=== PATIENT | male | born 1955 | race Caucasian/White ===

== ENCOUNTER → 2018-04-17 11:16 | Outpatient (CLI) | payer OTHER, SELFPAY ==
--- NOTE | 2018-04-17 11:22 | XR_ITS ---
EXAM: XR cervical spine 5V HISTORY: ITS.REASON: RT ARM PAIN ORDERING PHYSICIAN: Pamela Iyer MD PATIENT AGE: 62 years COMPARISON: None FINDINGS: There is slight reversal of the cervical lordosis which may be due to patient positioning or muscle spasm. Small anterior osteophytes are present at C4 C5 C6 and C7 with slight decrease in the disc spaces. The foramina are widely patent. No evidence of cervical rib. Mild facet arthritic changes are present at C4-C5 and C5-C6. IMPRESSION: 1. Mild cervical spondylosis with degenerative disc disease at C5-C7 and mild facet arthritic changes at C4-C5 and C5-C6 2. Reversal of cervical lordosis which could be due to patient positioning or muscle spasm
--- NOTE | 2018-04-17 11:22 | XR_ITS ---
XR chest 2V HISTORY: ITS.REASON: RT ARM PAIN, TOBACOO USE, HTN ORDERING PHYSICIAN: Pamela Iyer MD PATIENT AGE: 62 years COMPARISON: 07/21/2014 FINDINGS: The cardiomediastinal silhouette and pulmonary vascularity are within normal limits. The lungs are clear without infiltrates, suspicious nodules, or pleural effusions. No acute bony abnormalities. There are mild osteoarthritic changes of the right shoulder IMPRESSION: No change with no acute finding Mild osteoarthritis of the right shoulder
== END ==
PROVIDERS: PCP Family Medicine; Visit Provider Family Medicine
DX: M79.601 Pain in right arm (principal); I10 Essential (primary) hypertension; Z72.0 Tobacco use
CPT/HCPCS: 71046; 72050

== ENCOUNTER → 2018-05-03 06:37 | Outpatient (CLI) | payer OTHER, SELFPAY ==
--- NOTE | 2018-05-03 06:48 | XR_ITS ---
EXAM: XR lumbar spine min 4V HISTORY: ITS.REASON: ACUTE MID LOW BACK PAIN W/O SCIATICA ORDERING PHYSICIAN: Pamela Iyer MD PATIENT AGE: 62 years COMPARISON: None FINDINGS: There is multilevel degenerative disc disease in the lower thoracic and upper lumbar spine. There is mild retrolisthesis of L1 on L2 of 4 mm, L2 on L3 of 4 mm, and L3 on L4 of 3 mm. There is mild anterolisthesis of L4 on L5 of 3 mm. Small anterior osteophytes are present in the upper lumbar spine. No fracture or dislocation. No lytic or blastic change. IMPRESSION: Mild lumbar spondylosis as described above
--- NOTE | 2018-05-03 06:48 | NM_ITS ---
CARDIOLITE SPECT MYOCARDIAL PERFUSION LEXISCAN, REST AND STRESS: History: Hypertension, diabetes, hyperlipidemia, tobacco use. Procedure: Patient exercised on Lance protocol 9 minutes and 41 seconds, resting heart rate was 55 bpm resting blood pressure 132/68, with exercise maximum heart rate achieved was 1 56 bpm which is greater than 85% of the maximum predicted heart rate and a blood pressure was 153/75. Test was stopped due to fatigue patient denied any complained of chest pain. Patient has good exercise capacity achieved 10.1mets of workload on treadmill, the blood pressure response to exercise was adequate. Electrocardiogram: Resting electrocardiogram showed sinus bradycardia, with exercise there is less than 1.[address] segment depression noted from the baseline EKG. The EKG portion of the exercise Myoview is negative for ischemia. Cardiac stress and resting SPECT images: Cardiac stress and resting SPECT images were obtained using technetium 99 Myoview 31.0 mCi at stress and 10.2 mCi at rest. Gated SPECT further analysis of segmental wall motion and calculation of the ejection fraction also done. Cardiac stress and resting SPECT images show uniform myocardial activity without segmental perfusion abnormality, computer derived ejection fraction is over 65% with no regional wall motion abnormality, right ventricle is normal size and contractility. Conclusion: 1. The EKG portion of the exercise Myoview is negative for ischemia, patient has good exercise capacity achieved 10.1mets of workload on treadmill, the blood pressure response to exercise was adequate, there was no exercise-induced chest discomfort. 2. No scintigraphic evidence of reversible ischemia seen at this level of exercise, computer derived ejection fraction is over 65% with no regional wall motion abnormality, right ventricle is normal size and contractility. 3. Normal exercise Myoview study.
--- NOTE | 2018-05-03 09:41 | HMH.ITSHM ---
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 []CALCIUM INVOKANA AMLODIPINE BUPROPION METALOZONE LOSARTAN GEMFIBROZIL CARVEDILOL ADVAIR PREDINISOLONE
== END ==
PROVIDERS: PCP Family Medicine; Visit Provider Family Medicine
DX: M79.602 Pain in left arm (principal); M54.5 Low back pain
CPT/HCPCS: 72110; 78452; 93017; A9502

== ENCOUNTER → 2019-10-28 12:39 | Outpatient (CLI) | payer BC, SELFPAY ==
--- NOTE | 2019-10-28 12:42 | CT_ITS ---
PROCEDURE: CT LUNG SCREENING CLINICAL INDICATION: H/O NICOTINE DEPENDENCE current smoker 37.5 pack year smoking history copd, family hx prior chest wo, 01/19/17 COMPARISON: CT [facility] CT CHEST W/O CONTRAST from 01/19/2017 TECHNIQUE: The exam was performed on a GE Light Speed [address] scanner using 2.90 mGy CTDI. A low dose helical CT CHEST was performed on a multi-detector scanner. All CT scans at the facility use one or more dose reduction, viz: automated exposure control, ma/kV adjustment per patient size (including targeted exams where dose is matched to indication, i.e. head), or iterative reconstruction technique. The LDCT was performed in a facility that meets the criteria for the screening program. Data regarding this exam was submitted to ACR which is an approved registry. The order for this exam indicates that it came as a result of a lung cancer screening counseling shard decision-making visit that included all the elements required of such a visit including smoking cessation. The radiologist interpreting this exam meets the CMS criteria for the LDCT lung cancer screening program. The exam is reported using the Lung-RADS classification scale and reported to the ACR registry. NOTE: This study was performed for the specific purposes of lung cancer screening and is not an alternative to diagnostic chest CT. RADIATION DOSE: CTDI vol(CT dose Index-volume) = 2.90mG DLP (Dose Length Product) = 97.68 mGcm FINDINGS: COPD changes with scattered areas of scarring and evidence of old granulomatous disease. There is some thickening of the right minor fissure nonspecific. No change 6 mm noncalcified nodule superior segment right lower lobe. No change 4 mm subpleural nodule right upper lobe laterally. Stable 4 mm nodule left upper lobe posteriorly. Scarring left lower lobe superior segment unchanged. Scarring within the lingula OTHER FINDINGS: Coronary artery calcifications IMPRESSION: Lung-RADS Category 2 Benign Appearance or Behavior Follow-up: Continue annual screening with LDCT in 12 months Dictated by: Nick Montiel MD 11/10/2019 10:22 Nick Montiel MD in [place] 11/10/2019 10:22
--- NOTE | 2019-10-28 12:42 | XR_ITS ---
PROCEDURE: XR SHOULDER LT MIN 2V CLINICAL INDICATION: LT SHOULDER PAIN COMPARISON: No exams were available for comparison FINDINGS: There are osteoarthritic changes of the acromioclavicular joint and glenohumeral joint with severe subacromial stenosis. There are some hypertrophic changes of the humeral head along with some osteosclerosis. Other findings:No fracture or dislocation. IMPRESSION: Moderate osteoarthritic changes with severe subacromial stenosis which may be seen with rotator cuff disease. One would expect tear of the rotator cuff with this degree of subacromial stenosis which may be confirmed with MRI if clinically warranted. Dictated by: Nick Montiel MD 10/28/2019 18:28 Nick Montiel MD in [place] 10/28/2019 18:28
== END ==
PROVIDERS: PCP Family Medicine; Visit Provider Family Medicine
DX: Z87.891 Personal history of nicotine dependence (principal); Z12.2 Encounter for screening for malignant neoplasm of respiratory organs; M25.512 Pain in left shoulder
CPT/HCPCS: 73030

== ENCOUNTER → 2020-10-07 12:32 | Outpatient (CLI) | payer MEDICARE, BC, SELFPAY | PROVIDERS: PCP Family Medicine; Visit Provider Family Medicine | DX: Z20.822 Contact with and (suspected) exposure to COVID-19 (principal) | CPT/HCPCS: U0003 ==

== ENCOUNTER → 2021-02-03 13:08 | Outpatient (CLI) | payer MEDICARE, SELFPAY | PROVIDERS: PCP Family Medicine; Visit Provider Nurse Practitioner | DX: Z20.822 Contact with and (suspected) exposure to COVID-19 (principal) | CPT/HCPCS: C9803; U0003; U0005 ==

== ENCOUNTER → 2021-03-27 11:07 | Outpatient (CLI) | payer MEDICARE, SELFPAY | PROVIDERS: Visit Provider Nurse Practitioner | DX: Z20.822 Contact with and (suspected) exposure to COVID-19 (principal) | CPT/HCPCS: C9803; U0003; U0005 ==

== ENCOUNTER → 2021-03-31 12:51 | Outpatient (CLI) | payer MEDICARE, SELFPAY ==
--- NOTE | 2021-03-31 12:55 | CT_ITS ---
FINAL REPORT CLINICAL HISTORY: H/O NICOTINE DEPENDENCE FINDINGS: Low-Dose Chest CT CTDI vol (mGy): 2.90 DLP (mGy-cm): 99.25 Axial images were obtained from the lung apex to the mid abdomen by computed tomography. Low-dose protocol was utilized. FINDINGS: CHEST: There is no axillary adenopathy. There is no hilar or mediastinal adenopathy. The heart is proper size. There is no pericardial or pleural effusion. Limited images of the upper abdomen demonstrates a diffusely fatty infiltrated liver. Lung window images demonstrate a stable 4 mm nodule in the periphery of the right upper lobe on image 24 series 4. There is a stable 6 mm nodule in the right lower lobe on image 39 of series 4. The previously noted nodule in the left upper lobe is less well seen but appears unchanged on image 33 of series 4.. IMPRESSION: Lung RADS category 2. Recommend 12 month follow-up low-dose chest CT. Reviewed, Interpreted and Dictated by Baltazar Vilchis MD Transcribed by Meryl Singer Authenticated by Baltazar Vilchis MD on 03/31/2021 03:58:48 PM [facility]
== END ==
PROVIDERS: PCP Family Medicine; Visit Provider Family Medicine
DX: Z87.891 Personal history of nicotine dependence (principal); Z12.2 Encounter for screening for malignant neoplasm of respiratory organs
CPT/HCPCS: 71271

== ENCOUNTER → 2021-09-23 12:10 | Outpatient (CLI) | payer MEDICARE, SELFPAY ==
[2021-09-23 18:32] LABS: Basophils # 0.1 K/mm3 (0-0.2); Basophils % 1.3 % (0.1-2.0); Eosinophils # 0.3 K/mm3 (0.0-0.4); Eosinophils % 3.1 % (0.1-12.0); Hematocrit 46.7 % (42.0-52.0); Hemoglobin 15.1 g/dL (14.1-18.0); Lymphocytes # 3.1 K/mm3 (0.7-4.5); Lymphocytes % 34.8 % (10-50); Mean Corpuscular HGB Conc 32.3 g/dL (31.8-35.4); Mean Platelet Volume 10.1 fl (7.4-10.4); Monocytes # 0.6 K/mm3 (0.1-1.0); Monocytes % 6.4 % (1.7-9.3); Neutrophils # 4.8 K/mm3 (1.8-7.8); Neutrophils % 54.4 % (37.0-80.0); Platelet Count 246 K/mm3 (142-424); Red Blood Count 4.86 M/mm3 (4.60-6.20); Red Cell Distribution Width 13.6 % (11.5-17.5); White Blood Count 8.8 K/mm3 (4.8-10.8)
[2021-09-23 19:10] LABS: Anion Gap 14.1 mEq/L (5-15); Blood Urea Nitrogen 16 mg/dl (9-20); Calcium 9.3 mg/dl (8.4-10.2); Carbon Dioxide 20 mmol/L (22.0-30.0); Chloride 103 mmol/L (98-107); Estimated Glomerular Filt Rate 134 ml/min (>60); GFR (African American) 163 ML/MIN (>60); Glucose 117 mg/dl (74-100); Potassium 4.1 mmoL/L (3.5-5.1); Sodium 133 mmol/L (136-145)
[2021-09-23 19:40] LABS: Thyroid Stimulating Hormone 0.93 uIU/mL (0.465-4.68)
== END ==
PROVIDERS: PCP Family Medicine; Visit Provider Family Medicine
DX: E11.9 Type 2 diabetes mellitus without complications (principal); Z79.84 Long term (current) use of oral hypoglycemic drugs; Z79.899 Other long term (current) drug therapy
CPT/HCPCS: 80048; 84443; 85025

== ENCOUNTER → 2021-11-17 12:53 | Outpatient (CLI) | payer MEDICARE, SELFPAY ==
--- NOTE | 2021-11-17 13:01 | XR_ITS ---
FINAL REPORT CLINICAL HISTORY: bunion FINDINGS: 2 views of the right foot were obtained. There is no acute fracture or dislocation. There is hallux valgus deformity. There are mild hypertrophic changes at the 1st MTP and 3rd MTP joints. A moderate plantar spur is present. IMPRESSION: Hallux valgus deformity and hypertrophic change as described. Reviewed, Interpreted and Dictated by Baltazar Vilchis MD Transcribed by Jake Mae Authenticated and [facility]
--- NOTE | 2021-11-17 13:01 | XR_ITS ---
FINAL REPORT CLINICAL HISTORY: bunion FINDINGS: 2 views of the left foot were obtained. There is no acute fracture or dislocation. There is hallux valgus deformity. There are mild hypertrophic changes at the 1st MTP and 3rd MTP joints. A moderate plantar spur is present. IMPRESSION: Hallux valgus deformity with opera trophic changes as described. Reviewed, Interpreted and Dictated by Baltazar Vilchis MD Transcribed by Jake Mae Authenticated and [facility]
== END ==
PROVIDERS: PCP Family Medicine; Visit Provider Family Medicine
DX: M21.611 Bunion of right foot (principal); M21.612 Bunion of left foot
CPT/HCPCS: 73620

== ENCOUNTER → 2021-12-15 12:21 | Outpatient (CLI) | payer MEDICARE, SELFPAY ==
--- NOTE | 2021-12-15 12:43 | XR_ITS ---
FINAL REPORT CLINICAL HISTORY: left foot pain COMPARISON: November 17, 2021 FINDINGS: 3 views of the left foot were obtained. There is no acute fracture or dislocation. There is a moderate elix valgus deformity. There are mild hypertrophic changes at the 1st MTP joint. There is a large plantar spur. IMPRESSION: Large plantar spur. Moderate hallux valgus deformity. Reviewed, Interpreted and Dictated by Baltazar Vilchis MD Transcribed by Jake Mae Authenticated and [facility]
--- NOTE | 2021-12-15 12:45 | XR_ITS ---
FINAL REPORT CLINICAL HISTORY: right foot pain COMPARISON: November 17, 2021 FINDINGS: 3 views of the right foot were obtained. There is no acute fracture or dislocation. There is a [id number] hallux valgus deformity. There is a large plantar spur. The soft tissues are unremarkable. IMPRESSION: Large plantar spur. Hallux valgus deformity. Reviewed, Interpreted and Dictated by Baltazar Vilchis MD Transcribed by Jake Mae Authenticated and [facility]
[2021-12-15 13:57] LABS: 25-OH Vitamin D, Total 66.6 ng/mL (30-100)
[2022-01-08 23:51] LABS: Cotinine 125.9; Nicotine 14.8
== END ==
PROVIDERS: PCP Family Medicine; Visit Provider Podiatrist
DX: E55.9 Vitamin D deficiency, unspecified (principal); M79.672 Pain in left foot; M79.671 Pain in right foot
CPT/HCPCS: 36415; 73630; 80323; 82306

== ENCOUNTER → 2021-12-22 11:26 | Outpatient (CLI) | payer MEDICARE, SELFPAY | PROVIDERS: PCP Family Medicine; Visit Provider Podiatrist | DX: R09.89 Other specified symptoms and signs involving the circulatory and respiratory systems (principal) ==

== ENCOUNTER → 2022-03-29 10:31 | Outpatient (CLI) | payer MEDICARE, SELFPAY ==
--- NOTE | 2022-03-29 10:40 | ECG_ITS ---
APPROVED REPORT Exam: Resting ECG HR:74 bpm ECG Measurements Heart Rate 74 AXES PA 148 P 61 QRSd 106 QRS -23 QT 373 T 55 QTc 401 Conclusion SINUS RHYTHM BORDERLINE LEFT AXIS DEVIATION [QRS AXIS < -20] BORDERLINE ECG UNCONFIRMED REPORT Electronically signed by : Antonio Aguilar MD 03/29/2022 14:11:10
--- NOTE | 2022-03-29 11:02 | XR_ITS ---
FINAL REPORT CLINICAL HISTORY: Foot Pain,,pre-op foot pain FINDINGS: LEFT FOOT A single view of the left foot was obtained. There is hallux valgus deformity. There are mild degenerative changes. The soft tissues are unremarkable. IMPRESSION: Hallux valgus deformity with mild degenerative changes. Reviewed, Interpreted and Dictated by Tray Harley III, MD Transcribed by Meryl Singer Authenticated and . [facility]
--- NOTE | 2022-03-29 11:02 | XR_ITS ---
FINAL REPORT CLINICAL HISTORY: pre-op..foot pain..cough FINDINGS: Two views of the chest were obtained. The heart size and pulmonary vascularity are within normal limits. The mediastinum is normal. There is mild presumed scarring in the left lung base. There is no pneumothorax. The bony thorax is intact. IMPRESSION: No active cardiopulmonary disease. Reviewed, Interpreted and Dictated by Tray Harley III, MD Transcribed by Meryl Singer Authenticated and [facility]
--- NOTE | 2022-03-29 11:02 | XR_ITS ---
FINAL REPORT CLINICAL HISTORY: Foot pain..pre-op surgery on foot FINDINGS: RIGHT FOOT A single view of the right foot was obtained. There is hallux valgus deformity. There are mild degenerative changes. The soft tissues are unremarkable. IMPRESSION: Hallux valgus deformity with mild degenerative changes. Reviewed, Interpreted and Dictated by Tray Harley III, MD Transcribed by Meryl Singer Authenticated and [facility]
[2022-03-29 11:31] LABS: Basophils # 0.1 K/mm3 (0-0.2); Basophils % 1.6 % (0.1-2.0); Eosinophils # 0.4 K/mm3 (0.0-0.4); Eosinophils % 4.7 % (0.1-12.0); Hematocrit 45.6 % (42.0-52.0); Hemoglobin 15.2 g/dL (14.1-18.0); Hemoglobin A1C 7.8 % (4.0-6.0); Lymphocytes # 2.5 K/mm3 (0.7-4.5); Lymphocytes % 32.2 % (10-50); Mean Corpuscular HGB Conc 33.3 g/dL (31.8-35.4); Mean Corpuscular Hemoglobin 30.9 pg (27.0-31.2); Mean Corpuscular Volume 92.8 fl (80-94); Monocytes # 0.4 K/mm3 (0.1-1.0); Monocytes % 5.4 % (1.7-9.3); Neutrophils # 4.3 K/mm3 (1.8-7.8); Neutrophils % 56.1 % (37.0-80.0); Platelet Count 228 K/mm3 (142-424); Red Blood Count 4.92 M/mm3 (4.60-6.20); Red Cell Distribution Width 13.4 % (11.5-17.5); White Blood Count 7.6 K/mm3 (4.8-10.8)
[2022-03-29 11:35] LABS: Alanine Aminotransferase 36 U/L (12-78); Albumin Level 4.5 g/dl (3.5-5.0); Albumin/Globulin Ratio 1.9 (1.1-1.8); Alkaline Phosphatase 57 U/L (38-126); Anion Gap 10.7 mEq/L (5-15); Aspartate Amino Transferase 31 U/L (17-59); Bilirubin,Total 0.6 mg/dl (0.2-1.3); Blood Urea Nitrogen 16 mg/dl (9-20); Calcium 8.9 mg/dl (8.4-10.2); Carbon Dioxide 20 mmol/L (22.0-30.0); Chloride 105 mmol/L (98-107); Estimated Glomerular Filt Rate 112 ml/min (>60); GFR (African American) 136 ML/MIN (>60); Globulin 2.4 g/dL (1.3-3.2); Glucose 272 mg/dl (74-100); Potassium 3.7 mmoL/L (3.5-5.1); Sodium 132 mmol/L (136-145); Total Protein,Serum 6.9 g/dl (6.3-8.2)
[2022-04-08 16:15] LABS: 1,25 Dihydroxy Vitamin D 41 pg/mL (.); 1,25-Dihydroxy, Vitamin D-2 <10 pg/mL (.); 1,25-Dihydroxy, Vitamin D-3 41 pg/mL (.)
[2022-04-08 20:45] LABS: Cotinine 167.7; Nicotine 11.3
== END ==
PROVIDERS: PCP Family Medicine; Visit Provider Podiatrist
DX: E11.9 Type 2 diabetes mellitus without complications (principal); Z01.818 Encounter for other preprocedural examination; E55.9 Vitamin D deficiency, unspecified; M79.672 Pain in left foot; Z79.84 Long term (current) use of oral hypoglycemic drugs; M79.671 Pain in right foot
CPT/HCPCS: 36415; 71046; 73620; 80053; 80323; 82306; 82652; 83036; 85025; 93005

== ENCOUNTER 2022-04-05 07:14 | Day surgery (SDC) | payer MEDICARE, SELFPAY ==
[2022-04-03 12:33] VITALS: BMI 34.9
[2022-04-05] VITALS (12 sets, daily range): BP systolic 123–144; BP diastolic 63–87; PULSE 70–76; RESP 15–19; TEMP 36.3–43; O2SAT 91–99
[2022-04-05 07:41] LABS: POC Glucose,Bedside 162 (70-110)
--- NOTE | 2022-04-05 09:42 | SUR.OPER ---
0925- family updated of patient's current status via [facility] Petty
--- NOTE | 2022-04-05 10:01 | P.PN_ITS ---
[facility] Disclaimer: The information contained in this section may have been updated after the patient was seen, as this information can be updated by other users. Medical History Bilateral bunions History of COPD Hx of sleep apnea Type 2 diabetes mellitus Surgical History H/O arthroscopy of right knee History of bilateral knee replacement Family History Other No significant family history Social History Smoking Status: Current every day smoker tobacco type: cigarettes packs per day: 1 alcohol intake: never substance use type: denies use current occupational status: employed Travel in the last 8 weeks: None [facility] Anesthesia Checklist Patient Identification Patient Identification: Arm Band and Verbal (Name & ) Structural Data Admitted From: Home Planned Operative Procedure/s: Right Hallux Valgus Repair Consent for Planned Operative Procedure(s) Verified: Yes Verified Documents: Surgical Consent NPO Status Verified Time NPO: 00:00 Chart Verification Results Verified: CBC, BMP, ECG and Chest Xray Additional verifications Anesthesia Reactions: No Hx Blood Transfusions: No Blood Transfusion Reaction: No Airway Assessment C-Spine Mobility Assessed: Yes TMJ Mobility Assessed: Yes Dentition: Good Dentition Neurological Assessment Level of Consciousness: Awake, Alert and Appropriate Anesthesia Plan Anesthesia Risk discussed: Yes ASA Class: III Anesthesia Type: General w/block
--- NOTE | 2022-04-05 11:16 | XR_ITS ---
FINAL REPORT CLINICAL HISTORY: BUNIONECTOMY IN OR IMAGES FLUORO TIME: 1.16 FINDINGS: FLUORO TIME PROCEDURE: Fluoroscopy in the operating room. FINDINGS: Fluoroscopy time was provided by the radiology department for the clinical service. 4 spot films were obtained. Fluoroscopy exposure time: 1:16 minutes IMPRESSION: See above Reviewed, Interpreted and Dictated by Kyung Cueva MD Transcribed by Meryl Singer Authenticated and [facility]
--- NOTE | 2022-04-05 11:48 | EXP.OP.NOTE ---
Date of procedure: 04/05/22 Pre-op Diagnosis:: Right hallux valgus Right foot bunion Right intermetatarsal instability Right foot osteoarthritis Post-op Diagnosis:: Same Procedure performed:: Right lapidus bunionectomy (21838) Right intermetatarsal/cuneiform ORIF Right 1st MPJ Capsulotomy Right Javier osteotomy Autograft bone graft () Application of Viaflow (injectable amniotic graft) Application of posterior splint Surgeon:: Carito Santos DPM TECHNICAL TRANSLATOR:: Tadeo Feeariel Anesthesia: GETA and regional (R popliteal nerve block) Estimated blood loss (mL): 30 Clinical Note:: Patient is 66-year-old diabetic male with bilateral bunion pain. 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 Pain is progressively got worse over the last 5 years. The patient has tried modification of shoe gear, taping, strapping, inserts, ice elevation, NSAIDs. After a long discussion with the patient in regards to the conservative versus surgical treatment for the bunion deformity, the patient has elected to proceed with surgery because they have failed conservative treatment and continue to have pain and worsening symptoms affecting daily activities. The patient has been instructed on the planned procedure, all risk versus benefits of the procedure to include bleeding, infection, nerve and blood vessel damage, need for further surgery, delay in healing of soft tissue or bone, failure of bones to heal, non-union, mal-union, prolonged pain and recovery, prolonged swelling, CRPS/RSD, DVT and anesthetic complications. We discussed his increased risk for wound healing and infection due to diabetes and smoking. Currently smokes half pack daily. Smoking cessation discussed. Takes vitamin D supplements daily. No guarantees were given. All questions fully answered. The patient verbalized understanding and agreed to proceed with surgery. Medical clearance granted by Dr Iyer. Operative findings:: Right foot bunion with arthritic changes to the first metatarsal head. Degenerative changes also noted to the first metatarsal phalangeal joint. Hallux interphalangeus noted with distal toe bleeding. Bone was sclerotic consistent with arthritis. No signs of infection noted Operative note:: On this date and time, the patient was deemed an appropriate surgical candidate. With informed consent signed, the patient was taken to the operating theater after anesthesia did a regional nerve block. The patient was positioned supine. General anesthesia was induced. Tourniquet was applied to the thigh. The right lower extremity was prepped and draped in normal sterile fashion. IV Ancef infused. Right calcaneal autograft bone harvest: Attention was directed to the right calcaneus where a an incision was mapped out. Dissection was carried down full-thickness to the level of the bone. Utilizing an autograft bone harvester drill was inserted into the calcaneus and drill. Approximately 5 cc of calcaneus cancellous bone was obtained. Wound was flushed with saline. Nylon used to close the skin. Right Lapidus bunionectomy: Tourniquet was inflated 250 mmHg. Attention directed to the dorsal medial foot where an incision was mapped out over the first metatarsal cuneiform joint. Dissection carried down full-thickness down to the level of the bone with care taken to maintain surgical hemostasis and preserve neurovascular structures. There was arthritic changes noted to the dorsal lateral aspect of the first tarsometatarsal (TMT) joint. First TMT release performed. Attention to is directed to the first interspace where a stab incision was made at the MTP joint just lateral to the EHL tendon. Lateral capsule incised and a complete suspensory ligament release was completed. There was reduction of the hallux valgus deformity noted. Next a pin was inserted dorsal medial parallel to the first TMT joint and the bunion deformity was reduced. Next in standard technique the Lapiplasty 3in1 guide and positioner was inserted into t
--- NOTE | 2022-04-05 11:52 | P.PNANES_ITS ---
[facility] Anesthesia Record Part I Anesthesia Record I Intake, IV Amount: 1,100 Estimated blood loss (mL): 10 Urine output (mL): 0 Blood Products used (#): none Blood Pressure: 144/75 SaO2: 91 Pulse Rate: 76 Respiratory Rate: 16 Temperature: 97.7 F Patient is:: Drowsy and Stable Stable to PACU at:: 11:50
--- NOTE | 2022-04-05 12:00 | XR_ITS ---
FINAL REPORT CLINICAL HISTORY: Post op bunionectomy FINDINGS: AP, oblique and lateral views of the right foot were obtained. There is no prior exam for comparison. A plaster cast obscures detail. There are postoperative changes from 1st tarsometatarsal fusion and osteotomy of the proximal phalanx of the great toe. Hardware appears intact. No immediate complication is identified. There is no acute fracture or dislocation. There is degenerative joint disease. IMPRESSION: 1. Postoperative changes with no immediate complication identified. 2. Degenerative joint disease. Reviewed, Interpreted and Dictated by Kyung Cueva MD Transcribed by Meryl Singer Authenticated and [facility]
--- NOTE | 2022-04-05 12:27 | SUR.OPER ---
1108- Family updated on patient's status via [facility] Et[facility]
--- NOTE | 2022-04-05 12:28 | SUR.PHASEI ---
1220- Patient transported to post-op in stable condition. Left in care of [facility]. FSBS checked with results of 217.
[2022-04-05 12:31] LABS: POC Glucose,Bedside 217 (70-110)
--- NOTE | 2022-04-05 12:31 | SUR.PHASEII ---
Per Billy Sawyer RN no new orders for current blood sugar.
--- NOTE | 2022-04-06 14:45 | P.PNANES_ITS ---
[facility] Anesthesia Record Part II Anesthesia Record Part II Discharge Time: 12:20 Destination: Surgical Day Care (OP Surgery) PACU nurse assessment reviewed?: Yes Patient Condition:: Good Anesthesia Complications:: None Swallowing reflex intact?: Yes Cyanosis?: No Blood Pressure: 137/87 Pulse Rate: 71 Temperature: 97.7 F Mental Status: Alert & Oriented Pain level:: 0 Nausea and/or vomitting:: None Intake, IV Amount: 0
[2022-04-06 14:46] VITALS: BP 137/87; PULSE 71; TEMP 36.5
== END 2022-04-05 13:15 | disposition home or self-care (01) ==
PROVIDERS: PCP Family Medicine; Visit Provider Podiatrist
PROC: (CPT 28297; principal; 2022-04-05 08:30)
DX: M21.611 Bunion of right foot (principal); M20.11 Hallux valgus (acquired), right foot; Z79.4 Long term (current) use of insulin; E11.9 Type 2 diabetes mellitus without complications; M20.41 Other hammer toe(s) (acquired), right foot; M79.671 Pain in right foot; E55.9 Vitamin D deficiency, unspecified; F17.210 Nicotine dependence, cigarettes, uncomplicated
CPT/HCPCS: 28297; 28308; 73620; 73630; 76000; 82962; 96374; C1713; C1762; C1776; J2405

== ENCOUNTER → 2022-04-25 10:17 | Outpatient (CLI) | payer MEDICARE, SELFPAY ==
--- NOTE | 2022-04-25 10:20 | XR_ITS ---
FINAL REPORT CLINICAL HISTORY: post-op COMPARISON: 04/05/2022 FINDINGS: Right foot Three views were obtained. Overlying cast has been removed. Sideplate and screws are seen securing the 1st tarsometatarsal joint. There is a healing osteotomy at the base of the 1st proximal phalanx with a staple. Large plantar spur is identified. IMPRESSION: Postsurgical changes as detailed above. Reviewed, Interpreted and Dictated by Baltazar Vilchis MD Transcribed by Ayla Mosquera Authenticated and [facility][1]
== END ==
PROVIDERS: PCP Family Medicine; Visit Provider Podiatrist
DX: Z98.890 Other specified postprocedural states (principal); M79.671 Pain in right foot
CPT/HCPCS: 73630

== ENCOUNTER → 2022-05-09 10:43 | Outpatient (CLI) | payer MEDICARE, SELFPAY ==
--- NOTE | 2022-05-09 10:48 | XR_ITS ---
FINAL REPORT CLINICAL HISTORY: Post-op sx april 05 COMPARISON: April 25, 2022 FINDINGS: 3 views of the right foot were obtained. There are side plates and screws securing the 1st tarsometatarsal joint. There is a surgical staple securing an osteotomy through the base of the 1st proximal phalanx. There is a large plantar spur. There is no acute osseous abnormality. IMPRESSION: Stable postoperative changes. Reviewed, Interpreted and Dictated by Baltazar Vilchis MD Transcribed by Jake Mae Authenticated and [facility]
== END ==
PROVIDERS: PCP Family Medicine; Visit Provider Podiatrist
DX: Z98.890 Other specified postprocedural states (principal); M79.671 Pain in right foot
CPT/HCPCS: 73630

== ENCOUNTER → 2022-06-06 12:50 | Outpatient (CLI) | payer MEDICARE, SELFPAY ==
--- NOTE | 2022-06-06 12:58 | XR_ITS ---
FINAL REPORT CLINICAL HISTORY: post-op COMPARISON: April 08, 2022 FINDINGS: 3 weight-bearing views of the right foot were obtained. There is a side plate and screws securing the 1st tarsal metatarsal joint. There is an orthopedic staple in the proximal 1st proximal phalanx. There is no acute fracture or dislocation. A large plantar spur is present. The joint spaces are intact. The soft tissues are unremarkable. IMPRESSION: No acute process. Stable postoperative change. Reviewed, Interpreted and Dictated by Baltazar Vilchis MD Transcribed by Jake Mae Authenticated and . [facility]
== END ==
PROVIDERS: PCP Family Medicine; Visit Provider Nurse Practitioner Family
DX: Z98.890 Other specified postprocedural states (principal); M79.671 Pain in right foot
CPT/HCPCS: 73630

== ENCOUNTER → 2022-06-30 23:32 | Outpatient (CLI) | payer MEDICARE, SELFPAY ==
[2022-06-30 18:55] LABS: Alanine Aminotransferase 37 U/L (12-78); Albumin Level 4.3 g/dl (3.5-5.0); Albumin/Globulin Ratio 1.9 (1.1-1.8); Alkaline Phosphatase 54 U/L (38-126); Aspartate Amino Transferase 34 U/L (17-59); Bilirubin,Total 0.4 mg/dl (0.2-1.3); Blood Urea Nitrogen 15 mg/dl (9-20); Calcium 8.9 mg/dl (8.4-10.2); Carbon Dioxide 23 mmol/L (22.0-30.0); Chloride 100 mmol/L (98-107); Chol/HDL Ratio 4.3 (1-3.5); Cholesterol 121 mg/dl (140-200); Estimated Glomerular Filt Rate 134 ml/min (>60); GFR (African American) 163 ML/MIN (>60); Globulin 2.3 g/dL (1.3-3.2); Glucose 180 mg/dl (74-100); HDL Cholesterol 28 mg/dl (40-60); Sodium 136 mmol/L (136-145); Total Protein,Serum 6.6 g/dl (6.3-8.2); Triglycerides 158 mg/dl (30-150); VLDL Cholesterol 32 mg/dL (0-40)
== END ==
PROVIDERS: PCP Family Medicine; Visit Provider Family Medicine
DX: E66.9 Obesity, unspecified (principal); E11.9 Type 2 diabetes mellitus without complications; Z68.34 Body mass index [BMI] 34.0-34.9, adult; Z79.84 Long term (current) use of oral hypoglycemic drugs
CPT/HCPCS: 80053; 80061

== ENCOUNTER → 2022-10-24 11:00 | Outpatient (CLI) | payer MEDICARE, SELFPAY ==
[2022-10-24 19:56] LABS: Anion Gap 18.4 mEq/L (5-15); Blood Urea Nitrogen 17 mg/dl (9-20); Calcium 9.6 mg/dl (8.4-10.2); Carbon Dioxide 23 mmol/L (22.0-30.0); Chloride 100 mmol/L (98-107); Estimated Glomerular Filt Rate 112 ml/min (>60); GFR (African American) 136 ML/MIN (>60); Glucose 142 mg/dl (74-100); Potassium 4.4 mmoL/L (3.5-5.1); Sodium 137 mmol/L (136-145)
[2022-10-24 20:27] LABS: Prostate Specific Ag Screen 1.1 ng/ml (0.0-4.0)
[2022-10-24 23:14] LABS: Hemoglobin A1C 7.3 % (4.0-6.0)
== END ==
PROVIDERS: PCP Family Medicine; Visit Provider Family Medicine
DX: E11.9 Type 2 diabetes mellitus without complications (principal); Z79.84 Long term (current) use of oral hypoglycemic drugs; Z12.5 Encounter for screening for malignant neoplasm of prostate
CPT/HCPCS: 80048; 83036; G0103

== ENCOUNTER → 2022-11-16 12:48 | Outpatient (CLI) | payer MEDICARE, SELFPAY ==
--- NOTE | 2022-11-16 12:48 | CT_ITS ---
FINAL REPORT TECHNIQUE: Axial images were obtained from the lung apex to the mid abdomen by computed tomography. This study was performed with techniques to keep radiation doses as low as reasonably achievable (ALARA). Individualized dose reduction techniques using automated exposure control or adjustment of mA and/or kV according to the patient's size were employed. CLINICAL HISTORY: lung cancer screening 02/06 ppd x 52 yrs, smoker COPD COMPARISON: 03/31/2021 FINDINGS: CHEST CT LOW DOSE CTDI vol (mGy): 2.90 DLP (mGy-cm): 108.38 There is moderate coronary artery calcification. There is no axillary adenopathy. There is no hilar or mediastinal adenopathy. The heart is normal in size. There is no pericardial or pleural effusion. There is a stable 3 mm right upper lobe nodule well seen on image 29. There is a stable 4 mm left upper lobe nodule well seen on image 32. There is a stable 6 mm posterior right lower lobe nodule well seen on image 41. Several other less than 5 mm nodules are also stable. Note is made of mild scarring. Limited images of the upper abdomen are unremarkable. IMPRESSION: Stable nodules as detailed above. Lung RADS category 2. Recommend 12 month follow-up low-dose chest CT. Reviewed, Interpreted and Dictated by Tray Harley III, MD Transcribed by Ayla Mosquera Authenticated and [facility]
== END ==
PROVIDERS: PCP Family Medicine; Visit Provider Family Medicine
DX: Z87.891 Personal history of nicotine dependence (principal)
CPT/HCPCS: 71271

== ENCOUNTER 2023-04-17 08:47 | Outpatient (CLI) | payer MEDICARE, SELFPAY ==
[2023-04-17 08:30] VITALS: BP 135/82; PULSE 56; RESP 17; O2SAT 97
--- NOTE | 2023-04-17 08:47 | CT_ITS ---
APPROVED REPORT [employer]: CLINICAL INDICATION Chest Pain TECHNIQUE Image Acquisition: A 128 slice MDCT scanner ([employer] View) was used for data acquisition. A noncontrast coronary calcium scan was performed. A CT attenuation threshold of 130 Hounsfield units (HU) was used for the detection of calcium in contiguous voxels of 1 sq mm in area to be counted as individual lesions. Bolus tracking in the ascending aorta with a threshold of 180 HU was performed. Immediately afterwards, ECG synchronized cardiac CT was then performed from the cardiac base to apex using retrospective gating with ECG tube current modulation. A total of 85 mL of Isovue 370 mg/mL contrast medium was administered at 5 mL/sec followed by a saline flush using a biphasic injection protocol. A tube voltage of 120 KVp was used. The patient received the following medications prior to the cardiac CT. 0.8 mg of sublingual nitroglycerin The average heart rate at the time of acquisition was 58 bpm and regular. Image Reconstruction Transaxial images were reconstructed at 0.67 mm slide thickness. Data was reviewed interactively on an advanced workstation capable of 2 and 3-dimensional displays in all conventional reconstruction formats, including multiplanar reformations, maximum intensity projections, curved multiplanar reformations, and volume rendered reconstructions. When applicable, selected routine images describing the relevant coronary anatomy and pathology were saved and sent to PACS. Complications None Technical Quality Overall image quality was good. Coronary artery opacification was adequate. Total DLP (Dose-Length Product) is 1516.6 mGy-cm. The reported value represents the total of one or more individual components during the CT acquisition of this date and at this time, and as such, the same value may appear in more than one CT report depending on the interpreting/reporting physicians. COMPARISON None FINDINGS CT Coronary Calcium Scoring LMA (Left Main Artery) = 0 LAD (Left Anterior Descending) = 189 LCX (Left Coronary Circumflex) = 114 RCA (Right Coronary Artery) = 154 Total Calcium Score = 457 using the AJ-130 method. The observed calcium score of 457 is at 75th percentile for subjects of the same age, sex, and race/ethnicity. The interpretation of the calcium heart score is based on the following continuum*: 0 = no calcified plaque detected (risk of coronary artery disease is very low ??? less than 5%) 1-10 = calcium detected in extremely minimal levels (risk of coronary diseases is still low ??? less than 10%) 11-100 = mild levels of plaque detected with certainty (mild or minimal narrowing of heart arteries is likely) 101-400 = definite,at least moderate levels of plaque detected (relatively high risk of a heart attack within 3-5 years) >401-999 = extensive levels of plaque detected (high risk of heart attack, high levels of vascular disease are present, high likelihood of at least one significant coronary narrowing) *The calcium heart score quantifies the burden of coronary calcification/plaque in the coronary arteries. The calcium heart score is not able to evaluate the presence or burden of non-calcified (i.e. soft) plaque. There is also identifiable calcification in the ascending and, transverse, and descending thoracic aorta. Coronary CT Angiography The coronary arterial system is right dominant. Quantitative Stenosis Grading: Left Main (LM): The left main originates normally from the left sinus of Valsalva. The LM bifurcates into the left anterior descending artery and left circumflex artery. The LM is patent with no evidence of atherosclerosis. Left Anterior Descending (LAD) and Diagonal Branches: The LAD gives off 3 diagonal branches. There is mixed calcified/noncalcified plaque noted in the proximal and mid LAD, with presence of up to 50-70% luminal stenosis. There is no evidence of LAD-myocardial bridge. Left Circumflex (LCX) and Obtuse Marginals (OM): The LCX gives off 1 Obtuse Marginal (OM) branch(es). There is mixed calcified/noncalcified plaque noted in the proximal LCx, with up to 50 to 70% moderate luminal stenosis. Right Coronary Artery (RCA): The RCA originates normally from the right sinus of Valsalva. The RCA gives off a posterior descending artery (PDA) and posterolateral (PL) branches. There is mixed calcified/noncalcified plaque in the proximal RCA, with presence of 2 foci of eccentric plaque up to 70-90% luminal stenosis. Non-Coronary Cardiac Findings: Analysis of the left ventricular (LV) structure and function was performed after 3-D reconstruction of the LV from axial images, with user-corrected automatic contouring for assessment of LV volumes and user-defined reconstruction from oblique planes for measurement of 3-D cardiac structure and function. -The left ventricle systolic function is normal. -There is no left atrial appendage filling defect. Two right pulmonary veins and two left pulmonary veins drain normally into the left atrium. -No pericardial thickening or calcification. -Central and branch pulmonary arteries in the [id number] are unremarkable. -Thoracic aorta within the visualized thoracic aortic-branches in the [id number] is unremarkable. Extracardiac Structures No significant extra-cardiac findings. Note, however, that this study is focused on the cardiac findings. IMPRESSION -Presence of coronary calcification with an Agatston score = 457 using the AJ-130 method. -The observed calcium score of 457 is at 75th percentile for subjects of the same age, sex, and race/ethnicity. -Presence of multiplevessel atherosclerotic disease involving the proximal LAD, proximal LCx, and proximal RCA, with possible presence of significant flow-limiting atherosclerosis. -CAD-RADS 4A. Management recommendations per ACC/AHA guidelines*, as clinically appropriate. *Recommendations: CAD RADS 0: Reassurance. Consider non-atherosclerotic causes of chest pain. CAD RADS 1: Consider non-atherosclerotic causes of chest pain. Consider preventive therapy and risk factor modification. CAD RADS 2: Consider non-atherosclerotic causes of chest pain. Consider preventive therapy and risk factor modification, particularly for patients with nonobstructive plaque in multiple segments. CAD RADS 3: Consider further functional testing. Consider symptom-guided anti-ischemic and preventive pharmacotherapy as well as risk factor modification per published guideline statements. CAD RADS 4A: Consider further functional testing or invasive coronary angiography with revascularization per published guideline statements. Consider symptom-guided anti-ischemic and preventive pharmacotherapy as well as risk factor modification per published guideline statements. CAD RADS 4B: Invasive coronary angiography recommended with revascularization per published guideline statements. Consider symptom-guided anti-ischemic and preventive pharmacotherapy as well as risk factor modification per published guideline statements. CAD RADS 5: Consider invasive angiography and/or viability assessment with revascularization per published guideline statements. Consider symptom-guided anti-ischemic and preventive pharmacotherapy as well as risk factor modification per published guideline statements. CRITICAL RESULT None COMMUNICATION Per this written report The coronary and cardiac findings of this CCTA were reviewed, reported, and signed by Mario Winters MD (Information Architect) Conclusion Electronically signed by : Juliet Winters MD 04/23/2023 12:32:56
[2023-04-17 09:06] VITALS: BMI 35.2
[2023-04-17 09:31] LABS: Anion Gap 12.8 mEq/L (5-15); Blood Urea Nitrogen 14 mg/dl (9-20); Calcium 9.3 mg/dl (8.4-10.2); Carbon Dioxide 28 mmol/L (22.0-30.0); Chloride 101 mmol/L (98-107); Creatinine Clearance Estimated 96 mL/min (50-200); Estimated Glomerular Filt Rate 96 ml/min (>60); GFR (African American) 116 ML/MIN (>60); Glucose 158 mg/dl (74-100); Potassium 3.8 mmoL/L (3.5-5.1); Sodium 138 mmol/L (136-145)
[2023-04-17 10:11] VITALS: BP 151/80; PULSE 57; RESP 17; O2SAT 94
[2023-04-17] MEDS: NITROGLYCERIN 0.4MG SL TABLET SL (10:14)
[2023-04-17 10:15] VITALS: BP 130/64; PULSE 60; RESP 17; O2SAT 95
[2023-04-17 10:20] VITALS: BP 108/58; PULSE 61; RESP 17; O2SAT 95
[2023-04-17 10:26] VITALS: BP 129/77; PULSE 65; RESP 16; O2SAT 95
[2023-04-17] MEDS: 0.9 % SODIUM CHLORIDE 50 ML VIAL IV (10:26)
[2023-04-17] MEDS: SODIUM CHLORIDE 0.9% 10ML SYR (RAD ONLY) 10 ML IV (10:26)
[2023-04-17] MEDS: IOPAMIDOL-370 (76%);100ML BOTTLE 85 ML IV (10:27)
--- NOTE | 2023-04-17 10:27 | CA_ITS ---
APPROVED REPORT EXAM: Comprehensive 2D, Doppler, and color-flow Echocardiogram Claim Trainee: Tina Garza CRT Ht: 5 ft 5 in Wt: 214lbs BSA: 2.04 BP: 149/73 mmHg Indications: Chest Pain, COPD, Shortness of Breath, Diabetes, Hyperlipidemia, Hypertension/HDD 2D Dimensions LA Volume 36.90 mL LA Volume Index 17.70 mL/m2 (M/F) 16-34 M-Mode Dimensions RVDd 3.18 cm (0.9-2.6) LA Diam 3.76 cm (1.9-4.0) LVDd 4.43 cm (3.5-5.7) LVDs 3.00 cm (3.5-5.7) IVSd 2.32 cm (0.6-1.1) PWd 0.93 cm (0.6-1.1) EF (Teich) 60.70% FS 32.30% EDV (Teich) 89.10 mL TAPSE 1.98 (<1.7) ESV (Teich) 35.00 mL LV Diastology MED A' 8.90 cm/s LAT A' 12.10 cm/s Aortic Valve AI PHT 633.00 ms AO Peak GR. 5.00 mmHg Pulmonary Valve PV Peak Velocity 159.0 (50-150 cm/s) Tricuspid Valve TR P. Velocity 254.00 cm/s RAP Estimate 10.00 mmHg RVSP 35.90 mmHg Left Ventricle The left ventricle is normal size. The left ventricular systolic function is normal. The left ventricular ejection fraction is within the normal range. There is increased LV wall thickness. There is normal LV segmental wall motion. The left ventricular diastolic function is normal. LVEF is 60%. Right Ventricle The right ventricle is normal size. The right ventricular systolic function is normal. Atria The left atrium size is normal. The right atrium size is normal. Aortic Valve The aortic valve is mildly thickened. There is no aortic valvular stenosis. Mild aortic regurgitation. Mitral Valve The mitral valve leaflets are mildly thickened. No evidence of mitral valve stenosis. Trace mitral regurgitation. Tricuspid Valve The tricuspid valve leaflets are thin and pliable. Trace tricuspid regurgitation. There is insufficient TR jet to estimate RVSP. Pulmonic Valve The pulmonary valve is normal in structure. Trace pulmonic regurgitation. Great Vessels The aortic root is normal in size. The ascending aorta is not well-visualized. IVC is normal in size and collapses >50% with inspiration. Pericardium There is no pericardial effusion. Other Information Study Quality: Fair Conclusion Normal biventricular systolic function. Mild AI. Electronically signed by : Juliet Winters MD 04/18/2023 21:51:10
[2023-04-17 10:36] VITALS: BP 124/69; PULSE 66; RESP 18; O2SAT 96
--- NOTE | 2023-04-17 10:44 | PC.NURSE ---
pt with echo staff at 1040 with 20g iv in rfa.
[2023-04-17 12:08] LABS: POC Glucose,Bedside 156 (70-110)
== END 2023-04-17 23:59 ==
LOC: RAD 08:47
PROVIDERS: PCP Family Medicine; Visit Provider Nurse Practitioner Family
DX: R06.00 Dyspnea, unspecified (principal); E78.5 Hyperlipidemia, unspecified; R94.31 Abnormal electrocardiogram [ECG] [EKG]; I25.10 Atherosclerotic heart disease of native coronary artery without angina pectoris; R07.9 Chest pain, unspecified; E11.9 Type 2 diabetes mellitus without complications; Z79.84 Long term (current) use of oral hypoglycemic drugs
CPT/HCPCS: 75571; 75574; 80048; 82962; 93306; Q9967

== ENCOUNTER 2023-05-03 13:06 | Observation (INO) | payer MEDICARE, SELFPAY ==
[2023-05-03] VITALS (20 sets, daily range): BP systolic 123–170; BP diastolic 60–86; PULSE 57–74; RESP 16–20; TEMP 36.5–36.9; O2SAT 93–98; BMI 35.1; BMI 33.6
--- NOTE | 2023-05-03 07:13 | IR_ITS ---
APPROVED REPORT Patient Location: Outpatient Physician Asst: BETH Kligore RT (R) PROCEDURES Selective coronary angiogram Intravascular lithotripsy to the circumflex artery Drug-eluting stent deployment to the proximal and mid circumflex artery Intravascular lithotripsy to the proximal and mid dominant right coronary Drug-eluting stent deployment to the proximal and mid dominant right coronary INDICATION Angina pectoris, Coronary artery disease, Abnormal CCTA, Extensive calcification of the circumflex artery and LAD Informed consent was obtained prior to the procedure. COMPLICATIONS NONE Estimated Blood Loss: LESS THAN 10 ML TECHNIQUE One percent lidocaine used to anesthetize the right anterior aspect of the wrist. The right radial artery was accessed via the Seldinger technique. A 6 Maltese sheath was placed in the right radial artery. 2.5 mg of Verapamil, 800 mcg of nitroglycerin, 1mg Lidocaine and 5000 U Heparin were given through the arterial sheath. The papa catheter was also used to perform selective coronary angiogram. At the end of the diagnostic procedure therapeutic heparin was administered giving a therapeutic ACT and a guide catheter was placed in the left anterior descending artery followed by an additional wire placed down the circumflex artery. A 4 mm x 12 mm shockwave balloon was deployed at 4 vamsi for a total of 30 pulsations reducing the calcification. Following this 4.5 x 22 mm Alvarez frontier stent was deployed at 20 vamsi reducing the stenosis. A 5 mm x 12 mm noncompliant balloon was then deployed at 22 vamsi and placed in the midportion in order to further reduce the stenosis. Excellent stent apposition and angiographic results were obtained with ANNI-3 flow being present before and after the procedure. Following this the apparatus was removed and the wire was placed on the right coronary followed by the same intravascular lithotripsy balloon advanced and deployed at 8 vamsi for a total of 30 pulsations reducing the calcified stenosis. Following this a 5 mm x 30 mm Alvarez frontier stent was deployed in the mid right coronary artery at 20 vamsi reducing the stenosis. An additional 5 mm x 26 mm Alvarez frontier stent was placed proximal to the for stent yet still overlapping it and deployed at 24 vamsi. Excellent angiograph results were obtained after the procedure with ANNI-3 flow being present before and after the procedure. Following this the apparatus was removed the sheath was removed hemostasis was achieved using TR banding patient was transferred to the postop holding in stable condition ANGIOGRAPHIC RESULTS The left main artery Normal The left anterior descending artery Has proximal 10 to 20% stenoses with a mid vessel 30% stenosis and distal 30% stenoses. The circumflex artery Is nondominant yet still a large vessel and has a proximal calcified concentric 80% stenosis The right coronary artery Is a large dominant vessel and has proximal eccentric 50% with an additional eccentric 70 to 80% calcified stenosis with additional 20% distal stenoses The CHARLES ventriculogram reveals Was not performed The left ventricular end-diastolic pressure Was not measured IMPRESSION Severe calcified two-vessel disease involving the proximal circumflex artery and proximal dominant right coronary as described above Successful intravascular lithotripsy of the circumflex artery severe calcified disease reduced to 0% with 1 large drug-eluting stent Successful intravascular lithotripsy of the proximal to mid dominant right coronary artery severe calcified disease reduced to 0% with 2 contiguous drug-eluting stents PLAN 1. Effient 10 mg daily plus aspirin 81 mg daily 2. LDL less than 55 to achieve that high intensity statin 3. Avoidance of tobacco products 4. Risk factor modification 5. Cardiac rehabilitation 6. Due to the complex nature of the procedure including intravascular lithotripsy I would recommend patient be admitted to the hospital for additional observation and IV fluids overnight. Electronically signed by : Edilson Ogden MD 05/03/2023 12:33:05
[2023-05-03 11:16] LABS: Basophils # 0.1 K/mm3 (0-0.2); Basophils % 1.5 % (0.1-2.0); Eosinophils # 0.4 K/mm3 (0.0-0.4); Eosinophils % 4.5 % (0.1-12.0); Lymphocytes # 2.8 K/mm3 (0.7-4.5); Lymphocytes % 29.6 % (10-50); Mean Corpuscular HGB Conc 32.6 g/dL (31.8-35.4); Mean Platelet Volume 8.8 fl (7.4-10.4); Monocytes # 0.6 K/mm3 (0.1-1.0); Monocytes % 6.1 % (1.7-9.3); Neutrophils # 5.5 K/mm3 (1.8-7.8); Neutrophils % 58.3 % (37.0-80.0); Platelet Count 184 K/mm3 (142-424); Red Cell Distribution Width 13.8 % (11.5-17.5); White Blood Count 9.4 K/mm3 (4.8-10.8)
[2023-05-03] MEDS: HEPARIN 1,000 UNITS/ML 10ML VIAL (CATH LAB) 10000 UNIT IV (11:20)
[2023-05-03] MEDS: HEPARIN 1,000 UNITS/500ML NS (CATH LAB) 3000 UNIT IV (11:20)
[2023-05-03] MEDS: 0.9 % SODIUM CHLORIDE 500 ML 25 ML IV (11:20)
[2023-05-03] MEDS: LIDOCAINE 1% 10ML MDV 20 ML IJ (11:20)
[2023-05-03] MEDS: NITROGLYCERIN 800MCG/8ML SYR (CATH LAB) 800 MCG IA (11:20)
[2023-05-03] MEDS: VERAPAMIL 2.5MG/ML 2ML VIAL 2.5 MG IV (11:20)
[2023-05-03] MEDS: diphenhydrAMINE 50MG/ML VIAL 50 MG IV (11:21)
[2023-05-03 11:51] LABS: Chloride 105 mmol/L (98-107); Sodium 138 mmol/L (136-145)
[2023-05-03 11:52] LABS: Potassium 4.2 mmoL/L (3.5-5.1)
[2023-05-03 11:54] LABS: Blood Urea Nitrogen 14 mg/dl (9-20); Creatinine Clearance Estimated 96 mL/min (50-200); Estimated Glomerular Filt Rate 112 ml/min (>60); GFR (African American) 136 ML/MIN (>60)
[2023-05-03 11:55] LABS: Anion Gap 10.2 mEq/L (5-15); Calcium 9.7 mg/dl (8.4-10.2); Carbon Dioxide 27 mmol/L (22.0-30.0); Glucose 160 mg/dl (74-100)
[2023-05-03] MEDS: LABETALOL 20MG/4ML SYRINGE 20 MG IV (12:19)
[2023-05-03] MEDS: ASPIRIN 325MG TABLET 325 MG PO (12:57)
[2023-05-03] MEDS: PRASUGREL 10MG TAB 60 MG PO (12:57)
[2023-05-03] MEDS: IOPAMIDOL-370 (76%);100ML BOTTLE 150 ML IV (13:13)
[2023-05-03 13:18] LABS: CATHL Activated Clotting Time 289 SEC (74-125)
--- NOTE | 2023-05-03 13:36 | HMH.PHAINT1 ---
Pharmacy Intervention Comments: HOME MEDICATION LIST VERIFIED VIA OUTSIDE PHARMACY AND OFFICE VISIT
[2023-05-03] MEDS: LACTATED RINGERS 1000ML 1,000 ML 50 ML IV (15:07)
--- NOTE | 2023-05-03 16:54 | EXP.HP ---
History of Present Illness *Admission Date: 05/03/23 *Reason for visit:: unstable angina *History of present illness: Mr. Suarez is a pleasant 63-year-old male with history of diabetes, hypertension, hyperlipidemia, CAD. He has been having intermittent chest pain. Was seen in cardiology clinic 2 days ago. Had a CCTA performed showing calcium score 457 with severe multivessel disease. Cardiology brought him in for elective left heart cath. During procedure, found to have significant disease in the right coronary. Lithotripsy performed with placement of 3 stents. Patient tolerated procedure well but needs monitoring overnight. Medicine consulted for admission and further management. On arrival to the floor, patient is hemodynamically stable. No acute distress. On room air. Denies any chest pain at this time. [facility] Disclaimer: The information contained in this section may have been updated after the patient was seen, as this information can be updated by other users. Medical History Hypertension HLD (hyperlipidemia) Abnormal electrocardiogram [ECG] [EKG] Coronary artery calcification seen on CAT scan Fatigue Chest pain Hx of sleep apnea History of COPD Type 2 diabetes mellitus Bilateral bunions Surgical History Status post bunionectomy History of bilateral knee replacement H/O arthroscopy of right knee Family History No significant family history Social History Smoking Status: Current every day smoker tobacco type: cigarettes packs per day: 1 alcohol intake: never substance use type: denies use current occupational status: employed Travel in the last 8 weeks: None Review of Systems Review of Systems Review of systems (narrative): 14 point review of systems performed, pertinent positives and negatives as per HPI Meds Home Medications and Allergies Home Medications Medication Instructions Recorded Confirmed Type dulaglutide 0.75 mg/0.5 mL 0.75 mg SQ WEEKLY Diabetes 09/23/21 05/03/23 History subcutaneous pen injector (Trulicity) fluticasone 250 mcg-salmeterol 50 2 inh inhalation BID COPD 09/23/21 05/03/23 History mcg/dose blistr powdr for inhalation (Advair Diskus) ergocalciferol (vitamin D2) 1,250 50,000 unit PO QWEEK Supplement 04/05/22 05/03/23 History mcg (50,000 unit) capsule bupropion HCl 150 mg 24 hr tablet, 150 mg PO DAILY #90 tabs 02/26/23 05/03/23 Rx extended release gabapentin 300 mg capsule 300 mg PO TID #90 caps 03/16/23 05/03/23 Rx coQ10 (ubiquinol) 100 mg capsule 100 mg PO BID 04/05/23 05/03/23 History (Qunol Serg CoQ10) amlodipine 5 mg tablet 5 mg PO DAILY 05/03/23 05/03/23 History aspirin 81 mg chewable tablet 81 mg PO DAILY 30 days #30 tabs 05/03/23 Rx carvedilol 25 mg tablet 25 mg PO BIDWMEAL 05/03/23 05/03/23 History gemfibrozil 600 mg tablet 600 mg PO BID 05/03/23 05/03/23 History losartan 100 1 tab PO DAILY 05/03/23 05/03/23 History mg-hydrochlorothiazide 25 mg tablet metformin 850 mg tablet 850 mg PO DAILY 05/03/23 05/03/23 History potassium chloride 10 mEq 10 meq PO DAILY 05/03/23 05/03/23 History tablet,extended release prasugrel 10 mg tablet (Effient) 10 mg PO DAILY 30 days #30 tabs 05/03/23 Rx rosuvastatin 5 mg tablet 5 mg PO DAILY 05/03/23 05/03/23 History New Prescriptions to Start Prescriptions: aspirin Edilson Ogden prasugrel [Effient] Edilson Ogden Allergies Allergy/AdvReac Type Severity Reaction Status Date / Time No Known Allergies Allergy Verified 04/30/23 11:22 Exam Data for Last 24 hours Vital signs and Labs for Last 24 Hours: Temp Pulse Resp BP Pulse Ox O2 Del Method 97.7 F 58 L 17 146/82 H 97 Room Air 05/03/23 15:15 05/03/23 15:15 05/03/23 15:15 05/03/23 15:15 05/03/23 15:15 05/03/23 15:37 Laboratory Results - last 24 hr 05/03/23 11:04: WBC 9.4, RBC 5.00, Hgb 16.0, Hct 49.0, MCV 98.0 H, MCH 32.0 H, MCHC 32.6, RDW 13.8, Plt Count 184, MPV 8.8, Neut % (Auto) 58.3, Lymph % (Auto) 29.6, [place] % (Auto) 6.1, Eos % (Auto) 4.5, Baso % (Auto) 1.5, Neut # (Auto) 5.5, Lymph # (Auto) 2.8, [place] # (Auto) 0.6, Eos # (Auto) 0.4, Baso # (Auto) 0.1, Sodium 138, Potassium 4.2, Chloride 105, Carbon Dioxide 27, Anion Gap 10.2, BUN 14, Creatinine 0.70, Estimated Creat Clear 96, Estimated GFR 112, Est GFR ( Amer) 136, Glucose 160 H, Calcium 9.7 05/03/23 12:08: Activated Clotting Time 289 H* I & O for Last 24 hours: Intake & Output 04/30/23 05/01/23 05/02/23 05/03/23 23:59 23:59 23:59 23:59 Output Total 0 / 0 Balance 0 / 0 Weight 94.461 kg Constitutional Constitutional: no acute distress *Routine HEENT Exam Head: Present normocephalic Eye: Present EOMI and PERRL ENT: Present mucous membranes moist *Routine Neck Exam Neck: Present supple; Absent lymphadenopathy *Routine Respiratory Exam Respiratory: Present CTA bilaterally *Routine Cardiovascular Exam Cardiovascular: Present RRR *Routine Abdominal Exam Abdominal: Present soft and normoactive bowel sounds; Absent tenderness *Routine Rectal Exam Rectal:: deferred *Routine Genitalia Exam Genitalia:: deferred *Routine Extremities Exam Extremities: Present edema (trace BLE); Absent cyanosis or clubbing *Routine Skin Exam Skin: Present warm; Absent rash *Routine Neurological Exam Neurological: Present alert, oriented X3 and moving all extremities; Absent altered mental status Assessment and Plan *Assessment and plan (1) Atypical angina: Status: Acute Category: Medical Code(s): I20.89 - Other forms of angina pectoris (2) CAD (coronary artery disease): Status: Acute Category: Medical Code(s): I25.10 - Atherosclerotic heart disease of [place] coronary artery without angina pectoris (3) Hypertension: Status: Acute Qualifiers: Hypertension type: primary hypertension Qualified Code(s): I10 - Essential (primary) hypertension Category: Medical Code(s): I10 - Essential (primary) hypertension (4) Abnormal findings on diagnostic imaging of heart and coronary circulation: Status: Acute Category: Medical Code(s): R93.1 - Abnormal findings on diagnostic imaging of heart and coronary circulation (5) HLD (hyperlipidemia): Status: Acute Qualifiers: Hyperlipidemia type: mixed hyperlipidemia Qualified Code(s): E78.2 - Mixed hyperlipidemia Category: Medical Code(s): E78.5 - Hyperlipidemia, unspecified (6) History of COPD: Status: Acute Category: Medical Code(s): Z87.09 - Personal history of other diseases of the respiratory system (7) Type 2 diabetes mellitus: Status: Acute Qualifiers: Diabetes mellitus intermediate insulin use: without intermediate use Diabetes mellitus complication status: without complication Qualified Code(s): E11.9 - Type 2 diabetes mellitus without complications Category: Medical Code(s): E11.9 - Type 2 diabetes mellitus without complications (8) Tobacco abuse: Status: Chronic Category: Medical Code(s): Z72.0 - Tobacco use (9) Class 1 obesity: Status: Acute Category: Medical Code(s): E66.9 - Obesity, unspecified Plan 67-year-old male status post left heart cath. Necessitating 3 stents. Discussed case with cardiology after procedure, request admission for monitoring of serial kidney function and vitals overnight. If stable in the morning, anticipate discharge. Medicine agreed to admit for further management. Problems addressed as follows: Status post left heart cath -Patient found to have significant coronary artery disease. Status post lithotripsy of RCA with 3 stents. Continue dual antiplatelet therapy with aspirin 81 mg daily and prasugrel 10 mg daily -Cardiology consulted, appreciate their assistance in care. - Creatinine and kidney function normal with BUN 14, creatinine 0.7. Repeat labs in the morning to monitor for stability of kidney function. Hypertension CAD Hyperlipidemia Continue home regimen with amlodipine 5 mg daily, carvedilol 25 mg twice daily, Crestor 5 mg daily, losartan/HCTZ 100/25 mg daily. Continue gemfibrozil 600 mg twice daily Type 2 diabetes: Continue sliding scale insulin with fingersticks ACHS. Holding metformin. Continue Trulicity after discharge. A1c pending, 8.5 six weeks ago Continue home gabapentin 300 mg 3 times a day for neuropathy Continue Wellbutrin 150 mg daily for mood COPD: DuoNebs as needed every 6 hours. Continue Advair inhaler twice daily Obesity complicates all aspects of his care Full code Cardiac diet Heparinized in the Wet [employer] Machine
--- NOTE | 2023-05-03 17:22 | PC.NURSE ---
Pt sitting up in bed eating dinner. Denies any sob or discomfort. VS currently stable. (R) radial cath site with DSG in place. No hematoma noted. Call light within reach.
[2023-05-03 17:29] LABS: POC Glucose,Bedside 220 (70-110)
[2023-05-03] MEDS: CARVEDILOL 25MG TABLET 25 MG PO (17:30)
[2023-05-03] MEDS: FLUTICASONE/SALMETEROL 250/50MCG DISKUS 2 PUFF IH (18:29)
[2023-05-03] MEDS: ATORVASTATIN 10MG TABLET 10 MG PO (20:27)
[2023-05-03] MEDS: GABAPENTIN 300MG CAPSULE 300 MG PO (20:27)
[2023-05-03 20:28] LABS: POC Glucose,Bedside 198 (70-110)
[2023-05-04] VITALS: BP 122/69; PULSE 60; RESP 20; TEMP 37; O2SAT 94
[2023-05-04 02:00] VITALS: PULSE 60
[2023-05-04 04:00] VITALS: BP 147/81; PULSE 57; RESP 20; TEMP 36.7; O2SAT 96; BMI 33.5
--- NOTE | 2023-05-04 05:08 | PC.NURSE ---
pt has been resting in bed with eyes closed using personal c-pap throughout this shift. pt's rt radial cath site has maintained clean,dry,and intact. pt has had no complaints throughout the shift.
[2023-05-04 06:22] LABS: POC Glucose,Bedside 159 (70-110)
[2023-05-04 06:23] LABS: Basophils # 0.1 K/mm3 (0-0.2); Basophils % 1.5 % (0.1-2.0); Eosinophils # 0.4 K/mm3 (0.0-0.4); Eosinophils % 3.9 % (0.1-12.0); Hematocrit 45.3 % (42.0-52.0); Hemoglobin 14.9 g/dL (14.1-18.0); Lymphocytes # 2.4 K/mm3 (0.7-4.5); Lymphocytes % 25.3 % (10-50); Mean Corpuscular HGB Conc 32.8 g/dL (31.8-35.4); Mean Corpuscular Hemoglobin 31.3 pg (27.0-31.2); Mean Corpuscular Volume 95.3 fl (80-94); Mean Platelet Volume 8.9 fl (7.4-10.4); Monocytes # 0.6 K/mm3 (0.1-1.0); Monocytes % 6.7 % (1.7-9.3); Neutrophils # 5.9 K/mm3 (1.8-7.8); Neutrophils % 62.6 % (37.0-80.0); Platelet Count 177 K/mm3 (142-424); Red Blood Count 4.75 M/mm3 (4.60-6.20); Red Cell Distribution Width 13.8 % (11.5-17.5); White Blood Count 9.5 K/mm3 (4.8-10.8)
[2023-05-04] MEDS: humaLOG 100 UNITS/ML 3ML VIAL (SSI) SQ (06:33)
[2023-05-04] MEDS: CARVEDILOL 25MG TABLET 25 MG PO (06:33)
[2023-05-04 06:37] LABS: Anion Gap 9.8 mEq/L (5-15); Blood Urea Nitrogen 12 mg/dl (9-20); Calcium 9.3 mg/dl (8.4-10.2); Carbon Dioxide 26 mmol/L (22.0-30.0); Chloride 105 mmol/L (98-107); Creatinine Clearance Estimated 94 mL/min (50-200); Estimated Glomerular Filt Rate 112 ml/min (>60); GFR (African American) 136 ML/MIN (>60); Glucose 162 mg/dl (74-100); Potassium 3.8 mmoL/L (3.5-5.1); Sodium 137 mmol/L (136-145)
[2023-05-04 06:38] LABS: Magnesium 1.7 mg/dl (1.6-2.3)
[2023-05-04] MEDS: FLUTICASONE/SALMETEROL 250/50MCG DISKUS 2 PUFF IH (06:50)
[2023-05-04 06:52] VITALS: O2SAT 98
--- NOTE | 2023-05-04 07:20 | EXP.DC.SUM ---
General Admission date:: 05/03/23 Discharge date: 05/04/23 HPI HPI HPI: Mr. Suarez is a pleasant 63-year-old male with history of diabetes, hypertension, hyperlipidemia, CAD. He has been having intermittent chest pain. Was seen in cardiology clinic 2 days ago. Had a CCTA performed showing calcium score 457 with severe multivessel disease. Cardiology brought him in for elective left heart cath. During procedure, found to have significant disease in the right coronary. Lithotripsy performed with placement of 3 stents. Patient tolerated procedure well but needs monitoring overnight. Medicine consulted for admission and further management. On arrival to the floor, patient is hemodynamically stable. No acute distress. On room air. Denies any chest pain at this time. Hospital Course Hospital Course Hospital Course: 67-year-old male status post left heart cath. Necessitating 3 stents. Discussed case with cardiology after procedure, request admission for monitoring of serial kidney function and vitals overnight. If stable in the morning, anticipate discharge. Medicine agreed to admit for further management. No overnight. No events on telemetry. Chest pain resolved. Stable for discharge home. Problems addressed as follows: Status post left heart cath Hypertension CAD Hyperlipidemia -Patient found to have significant coronary artery disease. Status post lithotripsy of RCA with 3 stents. Initiated on dual antiplatelet therapy with aspirin 81 mg daily and prasugrel 10 mg daily. Cardiology evaluated patient the morning of discharge. Stable to discharge home. Recommend increasing Crestor to 10 mg daily. Follow-up with cardiology in 1 week. Kidney function monitored, stable creatinine of 0.7 on morning of discharge. Continue dual antiplatelet therapy with aspirin 81 mg daily and prasugrel 10 mg daily Type 2 diabetes: Sliding scale with fingerstick checks during admission. A1c obtained, 8.3. Resume home regimen with Trulicity and metformin. Further adjustments as an outpatient. Continue home gabapentin 300 mg 3 times a day for neuropathy Continue Wellbutrin 150 mg daily for mood COPD: DuoNebs as needed every 6 hours. Continue Advair inhaler twice daily Exam Data for Last 24 hours Vital signs and Labs for Last 24 Hours: Temp Pulse Resp BP Pulse Ox O2 Del Method 98.0 F 57 L 20 147/81 H 98 Room Air 05/04/23 04:00 05/04/23 04:00 05/04/23 04:00 05/04/23 04:00 05/04/23 06:52 05/04/23 06:52 Laboratory Results - last 24 hr 05/03/23 11:04: WBC 9.4, RBC 5.00, Hgb 16.0, Hct 49.0, MCV 98.0 H, MCH 32.0 H, MCHC 32.6, RDW 13.8, Plt Count 184, MPV 8.8, Neut % (Auto) 58.3, Lymph % (Auto) 29.6, [place] % (Auto) 6.1, Eos % (Auto) 4.5, Baso % (Auto) 1.5, Neut # (Auto) 5.5, Lymph # (Auto) 2.8, [place] # (Auto) 0.6, Eos # (Auto) 0.4, Baso # (Auto) 0.1, Sodium 138, Potassium 4.2, Chloride 105, Carbon Dioxide 27, Anion Gap 10.2, BUN 14, Creatinine 0.70, Estimated Creat Clear 96, Estimated GFR 112, Est GFR ( Amer) 136, Glucose 160 H, Calcium 9.7 05/03/23 12:08: Activated Clotting Time 289 H* 05/03/23 17:21: POC Glucose 220 H 05/03/23 20:19: POC Glucose 198 H 05/04/23 05:44: WBC 9.5, RBC 4.75, Hgb 14.9, Hct 45.3, MCV 95.3 H, MCH 31.3 H, MCHC 32.8, RDW 13.8, Plt Count 177, MPV 8.9, Neut % (Auto) 62.6, Lymph % (Auto) 25.3, [place] % (Auto) 6.7, Eos % (Auto) 3.9, Baso % (Auto) 1.5, Neut # (Auto) 5.9, Lymph # (Auto) 2.4, [place] # (Auto) 0.6, Eos # (Auto) 0.4, Baso # (Auto) 0.1, Sodium 137, Potassium 3.8, Chloride 105, Carbon Dioxide 26, Anion Gap 9.8, BUN 12, Creatinine 0.70, Estimated Creat Clear 94, Estimated GFR 112, Est GFR ( Amer) 136, Glucose 162 H, Calcium 9.3, Magnesium 1.7 05/04/23 06:15: POC Glucose 159 H I & O for Last 24 hours: Intake & Output 05/01/23 05/02/23 05/03/23 05/04/23 23:59 23:59 23:59 23:59 Intake Total 600 / 750 150 / 150 Output Total 0 / 0 0 / 0 Balance 600 / 750 150 / 150 Weight 94.461 kg 94.461 kg Constitutional Constitutional: no acute distress *Routine HEENT Exam Head: Present normocephalic Eye: Present EOMI and PERRL ENT: Present mucous membranes moist *Routine Neck Exam Neck: Present supple; Absent lymphadenopathy *Routine Respiratory Exam Respiratory: Present CTA bilaterally *Routine Cardiovascular Exam Cardiovascular: Present RRR *Routine Abdominal Exam Abdominal: Present soft and normoactive bowel sounds; Absent tenderness *Routine Rectal Exam Patient deferred: visual exam *Routine Exam Patient deferred: penile exam *Routine Extremities Exam Extremities: Absent cyanosis, clubbing or edema *Routine Skin Exam Skin: Present warm; Absent rash *Routine Neurological Exam Neurological: Present alert, oriented X3 and moving all extremities; Absent altered mental status Results Data Completed and Pending Labs on day of discharge: Labs from last 24 hours 05/04/23 05/04/23 05/03/23 06:15 05:44 20:19 WBC 9.5 RBC 4.75 Hgb 14.9 Hct 45.3 MCV 95.3 H MCH 31.3 H MCHC 32.8 RDW 13.8 Plt Count 177 MPV 8.9 Neut % (Auto) 62.6 Lymph % (Auto) 25.3 [place] % (Auto) 6.7 Eos % (Auto) 3.9 Baso % (Auto) 1.5 Neut # (Auto) 5.9 Lymph # (Auto) 2.4 [place] # (Auto) 0.6 Eos # (Auto) 0.4 Baso # (Auto) 0.1 Activated Clotting Time Sodium 137 Potassium 3.8 Chloride 105 Carbon Dioxide 26 Anion Gap 9.8 BUN 12 Creatinine 0.70 Estimated Creat Clear 94 Estimated GFR 112 Est GFR ( Amer) 136 Glucose 162 H POC Glucose 159 H 198 H Calcium 9.3 Magnesium 1.7 05/03/23 05/03/23 05/03/23 17:21 12:08 11:04 WBC 9.4 RBC 5.00 Hgb 16.0 Hct 49.0 MCV 98.0 H MCH 32.0 H MCHC 32.6 RDW 13.8 Plt Count 184 MPV 8.8 Neut % (Auto) 58.3 Lymph % (Auto) 29.6 [place] % (Auto) 6.1 Eos % (Auto) 4.5 Baso % (Auto) 1.5 Neut # (Auto) 5.5 Lymph # (Auto) 2.8 [place] # (Auto) 0.6 Eos # (Auto) 0.4 Baso # (Auto) 0.1 Activated Clotting Time 289 H* Sodium 138 Potassium 4.2 Chloride 105 Carbon Dioxide 27 Anion Gap 10.2 BUN 14 Creatinine 0.70 Estimated Creat Clear 96 Estimated GFR 112 Est GFR ( Amer) 136 Glucose 160 H POC Glucose 220 H Calcium 9.7 Magnesium DS: Diagnosis Discharge Diagnosis (1) Atypical angina: Status: Acute Code(s): I20.89 - Other forms of angina pectoris (2) CAD (coronary artery disease): Status: Acute Code(s): I25.10 - Atherosclerotic heart disease of [place] coronary artery without angina pectoris (3) Hypertension: Status: Acute Code(s): I10 - Essential (primary) hypertension Qualifiers: Hypertension type: primary hypertension Qualified Code(s): I10 - Essential (primary) hypertension (4) Abnormal findings on diagnostic imaging of heart and coronary circulation: Status: Acute Code(s): R93.1 - Abnormal findings on diagnostic imaging of heart and coronary circulation (5) HLD (hyperlipidemia): Status: Acute Code(s): E78.5 - Hyperlipidemia, unspecified Qualifiers: Hyperlipidemia type: mixed hyperlipidemia Qualified Code(s): E78.2 - Mixed hyperlipidemia (6) History of COPD: Status: Acute Code(s): Z87.09 - Personal history of other diseases of the respiratory system (7) Type 2 diabetes mellitus: Status: Acute Code(s): E11.9 - Type 2 diabetes mellitus without complications Qualifiers: Diabetes mellitus complication status: without complication Diabetes mellitus terminal system operator insulin use: without terminal system operator use Qualified Code(s): E11.9 - Type 2 diabetes mellitus without complications (8) Tobacco abuse: Status: Chronic Code(s): Z72.0 - Tobacco use (9) Class 1 obesity: Status: Acute Code(s): E66.9 - Obesity, unspecified Meds Home Medications and Allergies Home Medications Medication Instructions Recorded Confirmed Type dulaglutide 0.75 mg/0.5 mL 0.75 mg SQ WEEKLY Diabetes 09/23/21 05/03/23 History subcutaneous pen injector (Trulicity) fluticasone 250 mcg-salmeterol 50 2 inh inhalation BID COPD 09/23/21 05/03/23 History mcg/dose blistr powdr for inhalation (Advair Diskus) ergocalciferol (vitamin D2) 1,250 50,000 unit PO QWEEK Supplement 04/05/22 05/03/23 History mcg (50,000 unit) capsule bupropion HCl 150 mg 24 hr tablet, 150 mg PO DAILY #90 tabs 02/26/23 05/03/23 Rx extended release gabapentin 300 mg capsule 300 mg PO TID #90 caps 03/16/23 05/03/23 Rx coQ10 (ubiquinol) 100 mg capsule 100 mg PO BID 04/05/23 05/03/23 History (Qunol Serg CoQ10) amlodipine 5 mg tablet 5 mg PO DAILY 05/03/23 05/03/23 History aspirin 81 mg chewable tablet 81 mg PO DAILY 30 days #30 tabs 05/03/23 Rx carvedilol 25 mg tablet 25 mg PO BIDWMEAL 05/03/23 05/03/23 History gemfibrozil 600 mg tablet 600 mg PO BID 05/03/23 05/03/23 History losartan 100 1 tab PO DAILY 05/03/23 05/03/23 History mg-hydrochlorothiazide 25 mg tablet metformin 850 mg tablet 850 mg PO DAILY 05/03/23 05/03/23 History potassium chloride 10 mEq 10 meq PO DAILY 05/03/23 05/03/23 History tablet,extended release prasugrel 10 mg tablet (Effient) 10 mg PO DAILY 30 days #30 tabs 05/03/23 Rx rosuvastatin 10 mg tablet 10 mg PO DAILY #30 tabs 05/04/23 Rx New Prescriptions to Start Prescriptions: aspirin Edilson Ogden prasugrel [Effient] dEilson Ogden rosuvastatin Jason Dodd Allergies Allergy/AdvReac Type Severity Reaction Status Date / Time No Known Allergies Allergy Verified 04/30/23 11:22 Discharge Plan Disposition Patient Disposition: Home, Self-Care Condition: Good Follow up Plan Follow up with: Pamela Iyer MD [Primary Care Provider] - 05/08/23 12:30 pm Edilson Ogden MD [Staff Physician] - 05/09/23 2:30 pm Prescriptions/Medication Reconciliation: New aspirin 81 mg Tablet,Chewable 81 mg PO DAILY 30 Days Qty: 30 6RF prasugrel [Effient] 10 mg Tablet 10 mg PO DAILY 30 Days Qty: 30 6RF rosuvastatin 10 mg tablet 10 mg PO DAILY Qty: 30 0RF Continued Trulicity 0.75 mg/0.5 mL pen injector 0.75 mg SQ WEEKLY fluticasone propion-salmeterol [Advair Diskus] 250-50 mcg/dose blister with device 2 inh IH BID coQ10 (ubiquinol) [Qunol Serg CoQ10] 100 mg capsule 100 mg PO BID bupropion HCl 150 mg tablet extended release 24 hr 150 mg PO DAILY Qty: 90 1RF gabapentin 300 mg capsule 300 mg PO TID Qty: 90 3RF carvedilol 25 mg tablet 25 mg PO BIDWMEAL metformin 850 mg tablet 850 mg PO DAILY potassium chloride 10 mEq tablet extended release 10 meq PO DAILY amlodipine 5 mg tablet 5 mg PO DAILY losartan-hydrochlorothiazide 100-25 mg tablet 1 tab PO DAILY gemfibrozil 600 mg tablet 600 mg PO BID ergocalciferol (vitamin D2) 1,250 mcg (50,000 unit) capsule 50,000 unit PO QWEEK Discontinued rosuvastatin 5 mg tablet 5 mg PO DAILY Problem Reconciliation Problems Reviewed?: Yes Patient Discharge Instructions ACTIVITY: Continue current activity DIET: continue same diet Patient Instructions: DI for Cardiac Catheterization, DI for Surgical Site Infection, DI for Moderate Sedation, DI for Post-Surgical Bleeding Providers Primary Care Provider: Pamela Iyer Admit Provider: Jason Dodd Attending Provider: Jason Dodd
[2023-05-04 07:29] LABS: Hemoglobin A1C 8.3 % (4.0-6.0)
[2023-05-04 07:31] VITALS: BP 123/70; PULSE 64; RESP 18; TEMP 36.6; O2SAT 94
--- NOTE | 2023-05-04 08:29 | EXP.CARD.CON ---
History of Present Illness History of Present Illness Consult date: 05/04/23 Requesting physician: Jason Dodd Consult reason: post-op evaluation Chief complaint: Post cath, CKD Additional Medical History:: 1. Coronary calcifications noted on CT of the chest, November 2022 A. CCTA, 04/2023, CAC of 457 with multivessel disease of the proximal LAD, circumflex and RCA. B. LHC, 05/03/2023, 3 GENTRY to circumflex and proximal RCA. LAD has mild disease up to 30%. C. DAPT with aspirin and Effient 2. Tobacco use continued A. Cessation recommend 3. Hyperlipidemia A. LDL 71.7 on 06/30/2022 4. Hypertension A. Echocardiogram 04/2023, normal biventricular systolic function with mild aortic insufficiency. 5. Diabetes mellitus type 2 A. Hemoglobin A1c 8.3 on 05/04/2023 History of present illness: 67-year-old white male admitted post cardiac cath with stenting due to volume of contrast use. Patient denies any symptoms overnight. States he is anxious to go home. Renal functions are normal. Discussed smoking cessation. Patient states he is down to/only smokes 3 to 4 cigarettes/day and is trying to quit. [facility] Disclaimer: The information contained in this section may have been updated after the patient was seen, as this information can be updated by other users. Medical History Hypertension HLD (hyperlipidemia) Abnormal electrocardiogram [ECG] [EKG] Coronary artery calcification seen on CAT scan Fatigue Chest pain Hx of sleep apnea History of COPD Type 2 diabetes mellitus Bilateral bunions Surgical History Status post bunionectomy History of bilateral knee replacement H/O arthroscopy of right knee Family History No significant family history Social History Smoking Status: Current every day smoker tobacco type: cigarettes packs per day: 1 alcohol intake: never substance use type: denies use current occupational status: employed Travel in the last 8 weeks: None Review of Systems Review of Systems Review of systems:: pertinent systems reviewed and negative unless documented below Exam Data for Last 24 hours Vital signs and Labs for Last 24 Hours: Temp Pulse Resp BP Pulse Ox O2 Del Method 97.8 F 64 18 123/70 94 L Room Air 05/04/23 07:31 05/04/23 07:31 05/04/23 07:31 05/04/23 07:31 05/04/23 07:31 05/04/23 07:31 Laboratory Results - last 24 hr 05/03/23 11:04: WBC 9.4, RBC 5.00, Hgb 16.0, Hct 49.0, MCV 98.0 H, MCH 32.0 H, MCHC 32.6, RDW 13.8, Plt Count 184, MPV 8.8, Neut % (Auto) 58.3, Lymph % (Auto) 29.6, [place] % (Auto) 6.1, Eos % (Auto) 4.5, Baso % (Auto) 1.5, Neut # (Auto) 5.5, Lymph # (Auto) 2.8, [place] # (Auto) 0.6, Eos # (Auto) 0.4, Baso # (Auto) 0.1, Sodium 138, Potassium 4.2, Chloride 105, Carbon Dioxide 27, Anion Gap 10.2, BUN 14, Creatinine 0.70, Estimated Creat Clear 96, Estimated GFR 112, Est GFR ( Amer) 136, Glucose 160 H, Calcium 9.7 05/03/23 12:08: Activated Clotting Time 289 H* 05/03/23 17:21: POC Glucose 220 H 05/03/23 20:19: POC Glucose 198 H 05/04/23 05:44: WBC 9.5, RBC 4.75, Hgb 14.9, Hct 45.3, MCV 95.3 H, MCH 31.3 H, MCHC 32.8, RDW 13.8, Plt Count 177, MPV 8.9, Neut % (Auto) 62.6, Lymph % (Auto) 25.3, [place] % (Auto) 6.7, Eos % (Auto) 3.9, Baso % (Auto) 1.5, Neut # (Auto) 5.9, Lymph # (Auto) 2.4, [place] # (Auto) 0.6, Eos # (Auto) 0.4, Baso # (Auto) 0.1, Sodium 137, Potassium 3.8, Chloride 105, Carbon Dioxide 26, Anion Gap 9.8, BUN 12, Creatinine 0.70, Estimated Creat Clear 94, Estimated GFR 112, Est GFR ( Amer) 136, Glucose 162 H, Hemoglobin A1c 8.3 H, Calcium 9.3, Magnesium 1.7 05/04/23 06:15: POC Glucose 159 H I & O for Last 24 hours: Intake & Output 05/01/23 05/02/23 05/03/23 05/04/23 11:59 11:59 11:59 11:59 Intake Total 1170 / 1170 Output Total 0 / 0 Balance 1170 / 1170 Weight 211 lb 208 lb 4.014 oz Constitutional Constitutional: no acute distress *Routine Respiratory Exam Respiratory: Present CTA bilaterally *Routine Cardiovascular Exam Cardiovascular: Present RRR Meds Home Medications and Allergies Home Medications Medication Instructions Recorded Confirmed Type dulaglutide 0.75 mg/0.5 mL 0.75 mg SQ WEEKLY Diabetes 09/23/21 05/03/23 History subcutaneous pen injector (Trulicity) fluticasone 250 mcg-salmeterol 50 2 inh inhalation BID COPD 09/23/21 05/03/23 History mcg/dose blistr powdr for inhalation (Advair Diskus) ergocalciferol (vitamin D2) 1,250 50,000 unit PO QWEEK Supplement 04/05/22 05/03/23 History mcg (50,000 unit) capsule bupropion HCl 150 mg 24 hr tablet, 150 mg PO DAILY #90 tabs 02/26/23 05/03/23 Rx extended release gabapentin 300 mg capsule 300 mg PO TID #90 caps 03/16/23 05/03/23 Rx coQ10 (ubiquinol) 100 mg capsule 100 mg PO BID 04/05/23 05/03/23 History (Qunol Serg CoQ10) amlodipine 5 mg tablet 5 mg PO DAILY 05/03/23 05/03/23 History aspirin 81 mg chewable tablet 81 mg PO DAILY 30 days #30 tabs 05/03/23 Rx carvedilol 25 mg tablet 25 mg PO BIDWMEAL 05/03/23 05/03/23 History gemfibrozil 600 mg tablet 600 mg PO BID 05/03/23 05/03/23 History losartan 100 1 tab PO DAILY 05/03/23 05/03/23 History mg-hydrochlorothiazide 25 mg tablet metformin 850 mg tablet 850 mg PO DAILY 05/03/23 05/03/23 History potassium chloride 10 mEq 10 meq PO DAILY 05/03/23 05/03/23 History tablet,extended release prasugrel 10 mg tablet (Effient) 10 mg PO DAILY 30 days #30 tabs 05/03/23 Rx rosuvastatin 5 mg tablet 5 mg PO DAILY 05/03/23 05/03/23 History New Prescriptions to Start Prescriptions: aspirin Edilson Ogden prasugrel [Effient] Edilson Ogden Allergies Allergy/AdvReac Type Severity Reaction Status Date / Time No Known Allergies Allergy Verified 04/30/23 11:22 Assessment and Plan *Assessment and plan (1) CAD (coronary artery disease): Status: Acute Qualifiers: Coronary Disease-Associated Artery/Lesion type: [place] artery [place] vs. transplanted heart: [place] heart Associated angina: with unstable angina Qualified Code(s): I25.110 - Atherosclerotic heart disease of [place] coronary artery with unstable angina pectoris Category: Medical Code(s): I25.10 - Atherosclerotic heart disease of [place] coronary artery without angina pectoris (2) Hypertension: Status: Acute Qualifiers: Hypertension type: primary hypertension Qualified Code(s): I10 - Essential (primary) hypertension Category: Medical Code(s): I10 - Essential (primary) hypertension (3) HLD (hyperlipidemia): Status: Acute Qualifiers: Hyperlipidemia type: mixed hyperlipidemia Qualified Code(s): E78.2 - Mixed hyperlipidemia Category: Medical Code(s): E78.5 - Hyperlipidemia, unspecified (4) Coronary artery calcification seen on CAT scan: Status: Acute Category: Medical Code(s): I25.10 - Atherosclerotic heart disease of [place] coronary artery without angina pectoris (5) Type 2 diabetes mellitus: Status: Acute Qualifiers: Diabetes mellitus termite treater helper insulin use: without termite treater helper use Diabetes mellitus complication status: without complication Qualified Code(s): E11.9 - Type 2 diabetes mellitus without complications Category: Medical Code(s): E11.9 - Type 2 diabetes mellitus without complications (6) Tobacco abuse: Status: Chronic Category: Medical Code(s): Z72.0 - Tobacco use Plan 1. CAD with coronary stenting x 3 on 05/03/2023. 2. Hypertension, controlled 3. Hyperlipidemia, on statin therapy 4. Diabetes mellitus, type II 5. Continued tobacco use, cessation recommended Clinically stable from cardiac standpoint for discharge home. Home cardiac medication recommendations: Amlodipine 5 mg daily Aspirin 81 mg daily Carvedilol 25 mg twice daily CoQ 1000 mg twice daily Gemfibrozil 600 mg twice daily Losartan HCT 100-25 mg daily Potassium 10 mEq daily Effient 10 mg daily Increase rosuvastatin to 10 mg daily Follow-up in our office in 1 week
[2023-05-04] MEDS: GABAPENTIN 300MG CAPSULE 300 MG PO (08:50)
[2023-05-04] MEDS: PRASUGREL 10MG TAB 10 MG PO (08:50)
[2023-05-04] MEDS: buPROPion HCl SR 150MG TAB 150 MG PO (08:50)
[2023-05-04] MEDS: ASPIRIN EC 81MG TABLET 81 MG PO (08:51)
[2023-05-04] MEDS: AMLODIPINE 5MG TABLET 5 MG PO (08:51)
[2023-05-04] MEDS: hydroCHLOROthiazide 25MG TABLET 25 MG PO (08:51)
[2023-05-04] MEDS: GEMFIBROZIL 600MG TABLET 600 MG PO (08:51)
[2023-05-04 09:00] VITALS: BMI 33.6
[2023-05-04] MEDS: IRBESARTAN 150MG TAB 150 MG PO (09:46)
--- NOTE | 2023-05-07 15:12 | CARE MANAGER ---
Called and spoke with patient's regarding recent discharge. She stated that patient is doing well, had no concerns at time of call. Stated that patient has made the changes to medication prescribed at discharge and was aware of scheduled f/u appts.
== END 2023-05-04 11:34 | disposition home or self-care (01) ==
LOC: 2ND 13:07
PROVIDERS: Internal Medicine; Admitting Provider Internal Medicine Adolescent Medicine; PCP Family Medicine; Visit Provider Internal Medicine Adolescent Medicine
DX: R93.1 Abnormal findings on diagnostic imaging of heart and coronary circulation; R06.09 Other forms of dyspnea; E78.2 Mixed hyperlipidemia; R94.31 Abnormal electrocardiogram [ECG] [EKG]; E11.9 Type 2 diabetes mellitus without complications; I10 Essential (primary) hypertension; Z87.09 Personal history of other diseases of the respiratory system; F17.210 Nicotine dependence, cigarettes, uncomplicated; E66.9 Obesity, unspecified; I25.110 Atherosclerotic heart disease of native coronary artery with unstable angina pectoris
CPT/HCPCS: 36415; 80048; 82962; 83036; 83735; 85025; 85347; 92928; 92972; 99152; 99153; C1725; C1761; C1769; C1876; C9600; G0378; J1644; Q9967

== ENCOUNTER 2023-05-21 10:04 | Outpatient (RCR) | payer MEDICARE, SELFPAY | END 2023-07-06 11:00 | disposition home or self-care (01) | LOC: PT 10:04 | PROVIDERS: Visit Provider Internal Medicine | DX: I25.10 Atherosclerotic heart disease of native coronary artery without angina pectoris (principal); Z95.5 Presence of coronary angioplasty implant and graft | CPT/HCPCS: 93798 ==

== ENCOUNTER 2023-11-13 12:55 | Outpatient (CLI) | payer MEDICARE, SELFPAY ==
[2023-11-13 19:23] LABS: Alanine Aminotransferase 36 U/L (12-78); Albumin Level 4.6 g/dl (3.5-5.0); Albumin/Globulin Ratio 1.8 (1.1-1.8); Alkaline Phosphatase 47 U/L (38-126); Anion Gap 11.9 mEq/L (5-15); Aspartate Amino Transferase 30 U/L (17-59); Bilirubin,Total 0.6 mg/dl (0.2-1.3); Blood Urea Nitrogen 20 mg/dl (9-20); Calcium 9.6 mg/dl (8.4-10.2); Carbon Dioxide 24 mmol/L (22.0-30.0); Chloride 102 mmol/L (98-107); Estimated Glomerular Filt Rate 96 ml/min (>60); GFR (African American) 116 ML/MIN (>60); Globulin 2.5 g/dL (1.3-3.2); Glucose 113 mg/dl (74-100); Potassium 3.9 mmoL/L (3.5-5.1); Sodium 134 mmol/L (136-145); Total Protein,Serum 7.1 g/dl (6.3-8.2)
[2023-11-13 19:52] LABS: Prostate Specific Ag Screen 1.2 ng/ml (0.0-4.0)
== END 2023-11-13 23:59 | disposition home or self-care (01) ==
LOC: LAB.DROPOF 11-14 09:59
PROVIDERS: PCP Family Medicine; Visit Provider Family Medicine
DX: N40.0 Benign prostatic hyperplasia without lower urinary tract symptoms (principal); I10 Essential (primary) hypertension; I25.110 Atherosclerotic heart disease of native coronary artery with unstable angina pectoris; Z87.09 Personal history of other diseases of the respiratory system; J42 Unspecified chronic bronchitis; E11.9 Type 2 diabetes mellitus without complications; E78.2 Mixed hyperlipidemia; Z72.0 Tobacco use; Z12.5 Encounter for screening for malignant neoplasm of prostate
CPT/HCPCS: 80053; G0103

== ENCOUNTER 2024-02-05 12:35 | Outpatient (CLI) | payer MEDICARE, SELFPAY ==
[2024-02-05 18:59] LABS: Coronavirus 19, PCR Not Detected (NotDetected); Influenza A, PCR Not Detected (NotDetected); Influenza B, PCR Not Detected (NotDetected)
[2024-02-05 19:32] LABS: Basophils # 0.1 K/mm3 (0-0.2); Basophils % 1.1 % (0.1-2.0); Eosinophils # 0.3 K/mm3 (0.0-0.4); Hematocrit 47.2 % (42.0-52.0); Hemoglobin 15.5 g/dL (14.1-18.0); Lymphocytes # 2.7 K/mm3 (0.7-4.5); Lymphocytes % 24.7 % (10-50); Mean Corpuscular HGB Conc 32.8 g/dL (31.8-35.4); Mean Corpuscular Hemoglobin 29.9 pg (27.0-31.2); Mean Corpuscular Volume 90.9 fl (80-94); Mean Platelet Volume 10.9 fl (7.4-10.4); Monocytes # 0.7 K/mm3 (0.1-1.0); Monocytes % 6.4 % (1.7-9.3); Neutrophils # 7.1 K/mm3 (1.8-7.8); Neutrophils % 64.4 % (37.0-80.0); Platelet Count 258 K/mm3 (142-424); Red Blood Count 5.19 M/mm3 (4.60-6.20); Red Cell Distribution Width 14.3 % (11.5-17.5); White Blood Count 10.9 K/mm3 (4.8-10.8)
[2024-02-05 20:00] LABS: Calcium 9.5 mg/dl (8.4-10.2); Carbon Dioxide 23 mmol/L (22.0-30.0); Glucose 227 mg/dl (74-100); Potassium 3.7 mmoL/L (3.5-5.1); Sodium 137 mmol/L (136-145)
[2024-02-05 20:01] LABS: Anion Gap 16.7 mEq/L (5-15); Blood Urea Nitrogen 17 mg/dl (9-20); Chloride 101 mmol/L (98-107); Estimated Glomerular Filt Rate 96 ml/min (>60); GFR (African American) 116 ML/MIN (>60)
== END 2024-02-05 23:59 | disposition home or self-care (01) ==
LOC: LAB.DROPOF 02-07 15:02
PROVIDERS: PCP Family Medicine; Visit Provider Family Medicine
DX: J44.1 Chronic obstructive pulmonary disease with (acute) exacerbation (principal); F17.210 Nicotine dependence, cigarettes, uncomplicated
CPT/HCPCS: 80048; 85025; 87636

== ENCOUNTER 2024-02-07 11:57 | Outpatient (CLI) | payer MEDICARE, SELFPAY ==
--- NOTE | 2024-02-07 12:02 | XR_ITS ---
FINAL REPORT CLINICAL HISTORY: COPD exacerbation COMPARISON: 03/29/2022 FINDINGS: PA and lateral views of the chest were obtained. The cardiac and mediastinal silhouettes are within normal limits. The lungs are clear. There is no pleural effusion or pneumothorax. No acute osseous abnormality is identified. IMPRESSION: No radiographic evidence of acute cardiac or pulmonary disease. Reviewed, Interpreted and Dictated by Kyung Cueva MD Transcribed by Ayla Mosquera Authenticated and [facility]
== END 2024-02-07 23:59 | disposition home or self-care (01) ==
LOC: RAD 11:59
PROVIDERS: PCP Family Medicine; Visit Provider Family Medicine
DX: J44.1 Chronic obstructive pulmonary disease with (acute) exacerbation (principal)
CPT/HCPCS: 71046; 80048; 85025; 87636

== ENCOUNTER 2024-03-21 14:16 | Outpatient (CLI) | payer MEDICARE, SELFPAY ==
--- NOTE | 2024-03-21 14:20 | US_ITS ---
FINAL REPORT TECHNIQUE: Ultrasound images of the testicles were obtained bilaterally. Color Doppler images were obtained. CLINICAL HISTORY: testicular pain -- abscess COMPARISON: None FINDINGS: SCROTAL ULTRASOUND Testes have a homogeneous architecture. No masses are seen. Normal flow is noted without torsion. There is a small epididymal cyst of the right epididymal head. The left epididymis is unremarkable. There is a varicocele noted on the left. There is a 2.5 cm hypoechoic structure inferior to the left testis. This could represent a hernia or trace right hydrocele. IMPRESSION: No evidence of testicular mass or torsion. Small left varicocele. Nonspecific ill-defined hypoechoic tissue inferior to the testes could be related to hernia or even complex fluid collection. Correlate with physical exam. CT may be helpful to assess for inguinal hernia. Reviewed, Interpreted and Dictated by Pamela Treviño MD Transcribed by Elvira Alicia Authenticated and [facility]
== END 2024-03-21 23:59 | disposition home or self-care (01) ==
LOC: RAD 14:18
PROVIDERS: PCP Family Medicine; Visit Provider Family Medicine
DX: L02.91 Cutaneous abscess, unspecified (principal)
CPT/HCPCS: 76870

== ENCOUNTER 2024-03-24 12:48 | Emergency (ER) | payer MEDICARE, SELFPAY ==
[2024-03-24 12:50] VITALS: BP 107/64; PULSE 78; RESP 18; TEMP 36.6; O2SAT 96; BMI 34.7
[2024-03-24 13:21] VITALS: BP 107/64; PULSE 75; O2SAT 98
--- NOTE | 2024-03-24 13:23 | CT_ITS ---
FINAL REPORT TECHNIQUE: Thin section axial images were obtained through the abdomen and pelvis after intravenous contrast. Reconstruction images were obtained from the axial data. This study was performed with techniques to keep radiation doses as low as reasonably achievable, (ALARA). Individualized dose reduction techniques using automated exposure control or adjustment of mA and/or kV according to the patient's size were employed. CLINICAL HISTORY: pelvic/scrotal pain/swelling, abscess, NSTI eval COMPARISON: None FINDINGS: There is bilateral lower lobe atelectasis. The liver is fatty infiltrated without focal hepatic lesion. The gallbladder is present. The spleen, adrenal glands, and pancreas are without acute abnormality. There is no hydronephrosis or solid renal mass. The bladder is unremarkable. Abdominal GI tract is without evidence of small bowel obstruction. There is no abdominal lymphadenopathy or ascites. The pelvic solid organs are unremarkable. The pelvic portions of the GI tract, including the appendix, are without acute abnormality. There is colonic diverticulosis without diverticulitis. There is soft tissue edema of the subcutaneous tissues of the right groin, the lower anterior pelvic wall, and the scrotum. There is significant scrotal skin thickening. There is subcutaneous air along the perineum bilaterally, right greater than left, and this air extends into the right ischial anal fossa. 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 There is no loculated fluid collection. Prominent inguinal lymph nodes are favored to be reactive. No acute osseous abnormalities identified. 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 No fluid collection. Reactive inguinal lymphadenopathy. Fatty liver. Reviewed, Interpreted and Dictated by Kyung Cueva MD Transcribed by Elvira Alicia Authenticated and [facility]
[2024-03-24] MEDS: SODIUM CHLORIDE 0.9% 10ML SYR (RAD ONLY) 10 ML IV (13:36)
[2024-03-24] MEDS: IOPAMIDOL-370 (76%);100ML BOTTLE 75 ML IV (13:36)
--- NOTE | 2024-03-24 13:41 | HMH.EDGENADL ---
Discharge Plan Disposition Patient Disposition: Xfer Short-Term Hosp Condition: Fair Prescriptions Prescriptions: No Action coQ10 (ubiquinol) [Qunol Serg CoQ10] 100 mg capsule 100 mg PO BID prasugrel HCl [Effient] 10 mg tablet 10 mg PO DAILY Qty: 90 3RF cyclobenzaprine 10 mg tablet 10 mg PO TID PRN (Reason: muscle spasm) Qty: 30 0RF nystatin 100,000 unit/mL suspension 4 ml PO QID 10 Days Qty: 160 1RF Rx Instructions: swish, gargle, and swallow fluconazole 150 mg tablet 150 mg PO QWEEK Qty: 3 1RF sulfamethoxazole-trimethoprim [Bactrim DS] 800-160 mg tablet 1 tab PO BID Qty: 20 0RF gemfibrozil 600 mg tablet 600 mg PO BID Qty: 180 3RF Rx Instructions: Take 1 TAB BID FOR HYPERLIPIDEMIA (DME) Blood Glucose Test Strip See Rx Instructions .ROUTE .MEDSUPPLY Qty: 50 11RF Rx Instructions: As directed (DME) lancets [Droplet Lancets] 30 gauge misc See Rx Instructions .ROUTE .MEDSUPPLY Qty: 100 11RF Rx Instructions: As directed carvedilol 25 mg tablet See Rx Instructions .ROUTE .COMPLEX Qty: 180 3RF Dose Instruction: TAKE 1 TABLET TWICE DAILY WITH MEALS Rx Instructions: TAKE 1 TABLET TWICE DAILY WITH MEALS bupropion HCl 150 mg tablet extended release 24 hr See Rx Instructions .ROUTE .COMPLEX Qty: 90 3RF Dose Instruction: TAKE 1 TABLET EVERY DAY Rx Instructions: TAKE 1 TABLET EVERY DAY amlodipine 5 mg tablet See Rx Instructions .ROUTE .COMPLEX Qty: 90 3RF Dose Instruction: TAKE 1 TABLET EVERY DAY Rx Instructions: TAKE 1 TABLET EVERY DAY metformin 850 mg tablet See Rx Instructions .ROUTE .COMPLEX Qty: 90 3RF Dose Instruction: TAKE 1 TABLET EVERY DAY FOR DIABETES Rx Instructions: TAKE 1 TABLET EVERY DAY FOR DIABETES potassium chloride 10 mEq tablet extended release 10 meq PO DAILY Qty: 90 1RF Trulicity 0.75 mg/0.5 mL pen injector 0.75 mg SQ WEEKLY Qty: 2 5RF gabapentin 300 mg capsule 300 mg PO TID Qty: 90 3RF fluticasone propion-salmeterol [Advair Diskus] 250-50 mcg/dose blister with device 1 inh IH BID Qty: 3 2RF losartan-hydrochlorothiazide 100-25 mg tablet 1 tab PO DAILY Qty: 90 1RF Jardiance 25 mg tablet See Rx Instructions .ROUTE .COMPLEX Qty: 90 3RF Dose Instruction: TAKE 1 TABLET EVERY DAY Rx Instructions: TAKE 1 TABLET EVERY DAY rosuvastatin 20 mg tablet See Rx Instructions .ROUTE .COMPLEX Qty: 90 3RF Dose Instruction: TAKE 1 TABLET EVERY DAY Rx Instructions: TAKE 1 TABLET EVERY DAY aspirin 81 mg Tablet,Chewable 81 mg PO DAILY 30 Days Qty: 30 6RF ergocalciferol (vitamin D2) 1,250 mcg (50,000 unit) capsule 50,000 unit PO QWEEK Referrals Follow up/Referrals: Juan Gabriel MD [Primary Care Provider] - See instructions Clinical Impressions 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 by RN): PT REPORTS PAIN, SWELLING AND DRAINAGE FROM SCROTUM/PERINEUM. STARTED ON 03/17/2024, STARTED ON ABX ON 03/21/2024. PT THOUGHT HE NOTED IMPROVEMENT, DRAINAGE BECAME WORSE WELL PAIN History of Present Illness HPI narrative: This patient is a 68-year-old male with a history of hypertension, hyperlipidemia, obesity, CAD status post stenting, and type 2 diabetes presenting to the emergency department with concern for redness, pain, and swelling in his groin. He also notes that he has an open area that is draining. He states that symptoms initially started 03/17/2024, and he went to PCP 03/21/2024 and was prescribed antibiotics. He notes that despite taking Bactrim at home, symptoms have continued to worsen. He has significant pain, swelling, and foul-smelling drainage coming from his perineum. No other concerns noted, such as fevers, chills, or other systemic symptoms. Related Data Home Medications ?Medication ?Instructions ?Recorded ?Confirmed ergocalciferol (vitamin D2) 1,250 50,000 unit PO QWEEK Supplement 04/05/22 03/21/24 mcg (50,000 unit) capsule coQ10 (ubiquinol) 100 mg capsule 100 mg PO BID 04/05/23 03/21/24 (Qunol Serg CoQ10) Previous Rx's ?Medication ?Instructions ?Recorded aspirin 81 mg chewable tablet 81 mg PO DAILY 30 days #30 tabs 05/03/23 prasugrel HCl 10 mg tablet 10 mg PO DAILY #90 tabs 05/09/23 (Effient) cyclobenzaprine 10 mg tablet 10 mg PO TID PRN muscle spasm #30 05/16/23 tabs gemfibrozil 600 mg tablet 600 mg PO BID #180 tabs 05/25/23 blood sugar diagnostic (Blood #50 ea 06/04/23 Glucose Test strips) lancets 30 gauge (Droplet Lancets) #100 ea 06/04/23 carvedilol 25 mg tablet See Rx Instructions .Route 07/19/23 .COMPLEX #180 tabs bupropion HCl 150 mg 24 hr tablet, See Rx Instructions .Route 08/10/23 extended release .COMPLEX #90 tabs amlodipine 5 mg tablet See Rx Instructions .Route 10/23/23 .COMPLEX #90 tabs metformin 850 mg tablet See Rx Instructions .Route 10/23/23 .COMPLEX #90 tabs fluconazole 150 mg tablet 150 mg PO QWEEK #3 tabs 11/06/23 nystatin 100,000 unit/mL oral 4 ml PO QID 10 days #160 mL 11/06/23 suspension potassium chloride 10 mEq 10 meq PO DAILY #90 tabs 12/12/23 tablet,extended release dulaglutide 0.75 mg/0.5 mL 0.75 mg (0.5 mL) SQ WEEKLY 12/25/23 subcutaneous pen injector Diabetes #2 mL (Trulicity) gabapentin 300 mg capsule 300 mg PO TID #90 caps 02/21/24 fluticasone 250 mcg-salmeterol 50 1 inh inhalation BID COPD #3 ea 03/04/24 mcg/dose blistr powdr for inhalation (Advair Diskus) losartan 100 1 tab PO DAILY #90 tabs 03/04/24 mg-hydrochlorothiazide 25 mg tablet empagliflozin 25 mg tablet See Rx Instructions .Route 03/19/24 (Jardiance) .COMPLEX #90 tabs sulfamethoxazole 800 1 tab PO BID #20 tabs 03/21/24 mg-trimethoprim 160 mg tablet (Bactrim DS) rosuvastatin 20 mg tablet See Rx Instructions .Route 03/24/24 .COMPLEX #90 tabs Allergies Allergy/AdvReac Type Severity Reaction Status Date / Time No Known Allergies Allergy Verified 03/21/24 11:52 [facility] Disclaimer: The information contained in this section may have been updated after the patient was seen, as this information can be updated by other users. Medical History COPD with exacerbation Encounter for immunization Hypertension HLD (hyperlipidemia) Abnormal electrocardiogram [ECG] [EKG] Coronary artery calcification seen on CAT scan Fatigue Chest pain Hx of sleep apnea History of COPD Type 2 diabetes mellitus Bilateral bunions Surgical History Status post bunionectomy History of bilateral knee replacement H/O arthroscopy of right knee Family History Other No significant family history Social History Smoking Status: Current every day smoker tobacco type: cigarettes packs per day: 1 alcohol intake: never substance use type: denies use current occupational status: employed Travel in the last 8 weeks: None Have you lived/traveled outside [place] in past 30 days?: No Contact w/someone who lives/traveled outside [place] past 30 days?: No Exposure to someone with infectious disease in past 14 days?: No Do you have a fever (greater than 100.4 F or 38 C)?: No Have you tested positive for COVID-19: No Exposed to someone with COVID-19 in past 14 days?: No Do you have a sore throat?: No Do you have a cough?: No Do you have any weakness?: No Do you have any diarrhea?: No Are you experiencing any unusual bleeding?: No Do you have any muscle aches/pain?: No Do you have any abdominal pain?: No Are you experiencing loss of taste or smell?: No Other Medical History Have you received the Flu Vaccine for this season: No Have you received the Pneumonia Vaccine: Yes ROS Obtained: Yes All systems reviewed & no additional complaints except as documented Physical Exam General General appearance: alert, in no apparent distress and obese Head Head exam: atraumatic and normocephalic Eye Eye exam: Present normal appearance, PERRL and EOMI ENT ENT exam: Present normal exam, normal oropharynx, mucous membranes moist and normal external ear exam Neck Neck exam: Present normal inspection, full ROM and trachea midline; Absent tenderness Chest Chest inspection: Present normal inspection and symmetric chest wall rise; Absent tenderness Respiratory Respiratory exam: Present normal lung sounds bilaterally; Absent respiratory distress, wheezes, stridor or accessory muscle use Cardiovascular Cardiovascular exam: Present regular rate and normal rhythm Abdominal Exam Abdominal exam: Present soft; Absent distention, tenderness or guarding exam: Present testicular tenderness, scrotal swelling and other (Significant redness, induration, swelling of the scrotum/perineum with an open, black blister that is draining purulent cloudy material. Very concerning for Savannah's gangrene) Extremities Exam Extremities exam: Present normal inspection, full ROM and normal capillary refill; Absent tenderness or edema Back Exam Back exam: Present normal inspection and full ROM; Absent tenderness Neurological Exam Neurological exam: Present alert, oriented X3, CN II-XII intact and normal gait; Absent motor sensory deficit Psychiatric Psychiatric exam: Present normal affect and normal mood Skin Skin exam: Present warm and dry Medical Decision Making Medical Records Medical records reviewed: Yes I reviewed the patient's medical records. Screening: Per USPSTF and CDC recommendations, given the prevalence of disease in our region, it is our hospital?s policy to screen for HIV and viral Hepatitis for all patients aged 18 and over and those with ongoing risk factors. Andre Inquiry Pt receiving controlled substance: No Vital Signs: 03/24/24 12:50 03/24/24 13:21 03/24/24 14:00 Temperature 97.8 F Temperature Source Oral Pulse Rate 75 75 Pulse Rate [Radial] 78 Respiratory Rate 18 Blood Pressure 107/64 L 118/60 Blood Pressure [Right Arm] 107/64 L Blood Pressure Mean [Right Arm] 78 Blood Pressure Source [Right Arm] Automatic Cuff Blood Pressure Position [Right Arm] Sitting 02 Sat by Pulse Oximetry 96 98 96 Oxygen Delivery Method Room Air Room Air Room Air Lab Data Lab results reviewed: Yes I reviewed the patient's lab results. Lab Results 03/24/24 13:30: WBC 16.1 H, RBC 4.34 L, Hgb 13.2 L, Hct 38.3 L, MCV 88.2, MCH 30.4, MCHC 34.5, RDW 14.4, Plt Count 212, MPV 11.1 H, Neut % (Auto) 86.5 H, Lymph % (Auto) 7.2 L, [place] % (Auto) 4.6, Eos % (Auto) 0.4, Baso % (Auto) 0.3, Neut # (Auto) 13.9 H, Lymph # (Auto) 1.2, [place] # (Auto) 0.7, Eos # (Auto) 0.1, Baso # (Auto) 0.1, Total Counted 100, Neutrophils % (Manual) 86 H, Lymphocytes % (Manual) 9 L, Monocytes % (Manual) 5, Platelet Estimate Normal, RBC Morphology Normal, PT 11.4, INR 1.02, APTT 27.1, Sodium 132 L, Potassium 3.7, Chloride 96 L, Carbon Dioxide 23, Anion Gap 16.7 H, BUN 42 H, Creatinine 1.40 H, Estimated Creat Clear 67, Estimated GFR 50 L, Est GFR ( Amer) 61, Glucose 317 H, Lactate 2.6 H, Calcium 9.0, Total Bilirubin 0.5, AST 24, ALT 25, Alkaline Phosphatase 64, C-Reactive Protein 339.3 H, Total Protein 6.4, Albumin 3.7, Globulin 2.7, Albumin/Globulin Ratio 1.4, Procalcitonin 0.590 03/24/24 13:30 03/24/24 13:30 Orders (Tests/Meds): ED MEDICATIONS Generic Name Dose Route Start Last Admin Trade Name Fide PRN Reason Stop Dose Admin Lactated Ringer's 1,000 mls @ 999 mls/hr 03/24/24 13:32 03/24/24 14:16 Lactated Ringer's 1000 Ml Bag IV 03/24/24 14:32 999 mls/hr .Q1H1M ONE Administration Vancomycin/PEG/NADA/Lysine/Water 1.75 gm in 350 mls @ 175 mls/hr 03/24/24 14:00 Vancomycin 1.75gm/350ml (Peg) Premix IV 03/24/24 15:59 ONCE ONE Sodium Chloride 1,000 mls @ 999 mls/hr 03/24/24 14:30 Sod Chlor 0.9% 1000ml Bag IV 03/24/24 15:30 .Q1H1M [facility] Insulin Human Regular 10 unit 03/24/24 14:21 Insulin Human Regular 100 Units/Ml 10ml Vial IV 03/24/24 14:22 ONCE ONE Sodium Chloride 10 ml 03/24/24 13:35 03/24/24 13:36 Sodium Chloride 0.9% 10ml Syr (Rad Only) IV 04/23/24 13:34 10 ml NEEDED PRN Administration Maintain IV Site Discontinued Medications Generic Name Dose Route Start Last Admin Trade Name Freq PRN Reason Stop Dose Admin Piperacillin Sod/Tazobactam 50 mls @ 100 mls/hr 03/24/24 13:28 Sod 3.375 gm/ Sodium Chloride IV 03/24/24 13:57 ONCE ONE Clindamycin Phosphate 900 mg in 50 mls @ 100 mls/hr 03/24/24 13:28 03/24/24 14:16 Clindamycin 900mg/50ml D5w Premix IV 03/24/24 13:57 100 mls/hr ONCE ONE Administration Iopamidol 75 ml 03/24/24 13:35 03/24/24 13:36 Iopamidol-370 (76%);100ml Bottle IV 03/24/24 13:36 75 ml ONCE ONE Administration Miscellaneous 1 each 03/24/24 13:30 Vancomycin Consult Request NOTAPPLIC 04/23/24 13:29 CONSULT PHARMACY [facility] ORDERS Category Date Time Status CT abdomen pelvis w con Stat Cat Scan 03/24/24 13:23 Taken CRP [C-Reactive Protein] Stat Lab 03/24/24 13:30 Completed Complete Blood Count Auto Diff Stat Lab 03/24/24 13:30 Completed Comprehensive Metabolic Panel Stat Lab 03/24/24 13:30 Completed HIV Combo Stat Lab 03/24/24 13:30 Received Hepatitis C Ab Qual. W/ RFX Stat Lab 03/24/24 13:30 Received Lactic Acid Stat Lab 03/24/24 13:30 Completed PT INR [Prothrombin Time INR] Stat Lab 03/24/24 13:30 Completed PTT [Activated Partial Thrombo Time] Stat Lab 03/24/24 13:30 Completed Procalcitonin Stat Lab 03/24/24 13:30 Completed Blood Culture Stat Micro 03/24/24 13:30 Received Wound Culture and Gram Stain Stat Micro 03/24/24 13:30 Received Medical Decision Narrative: In summary, this patient is a 68-year-old male presenting to the Emergency Department for evaluation of redness, pain, swelling, drainage from his scrotum/perineal area. Differential diagnoses considered include but are not limited to Savannah's gangrene/NSTI, sepsis, cellulitis, abscess. Ruling out the most morbid conditions drove assessment. It should be noted patient's history includes obesity, hypertension, hyperlipidemia, diabetes which may or may not be at goal therapy. This complicates all aspects of care by increasing patient's risk for morbidity. I reviewed patient's past medical records and noted previous PCP and cardiology evaluations for maintenance of his chronic issues. On exam, the patient is lying in bed in no acute distress. He has significant redness, warmth, tenderness induration to his scrotum/perineal area with a dark blister that is draining cloudy purulent material. Highly concerning for Savannah's gangrene/NSTI, so this patient was taken emergently for CT scan with IV contrast without waiting for labs. He was started on broad-spectrum antibiotics with IV vancomycin, Zosyn, and clindamycin. He was given 1 L bolus of IV fluids but was not given sepsis bolus, as he is obese and has history of cardiac dysfunction and I feel it would be harmful to him. Workup included broad lab evaluation to evaluate for infectious, metabolic etiologies including blood cultures, wound culture. I independently interpreted CT scan prior to the radiologist read and noted gas in the pelvis and scrotum concerning for Savannah's gangrene/NSTI. Please see their read for final interpretation. Given this, I emergently called for potential transfer for higher level of care. labs were obtained that demonstrated leukocytosis, lactic acidosis, elevated CRP, AUTUMN, mild hyponatremia. Glucose is 317. I did give the patient 10 units of IV insulin. I had interactive discussions with Dr. Nuñez and Dr. [place] at with transfer center and general surgery. They accepted the patient for transfer to [facility] ED for potential surgical evaluation. On reassessment, patient remains hemodynamically stable. I updated him with regards to plan of care and need for transfer to for higher level of care for surgical evaluation. He expressed understanding and agreement and called his to let him know. EMS transport was arranged emergently, and patient was transported in stable condition. Critical Care Critical Care Time Critical Care Time: Yes Attestation: On 03/24/24, the high probability of a clinically significant, sudden or life threatening deterioration of the following system(s) required my full and direct attention, intervention and personal management. The time I documented below is in addition to time spent performing reported procedures but includes the following listed in this critical care notation. Total Time Total Critical Care Time: 40
[2024-03-24 13:46] LABS: Basophils # 0.1 K/mm3 (0-0.2); Basophils % 0.3 % (0.1-2.0); Eosinophils # 0.1 K/mm3 (0.0-0.4); Eosinophils % 0.4 % (0.1-12.0); Hematocrit 38.3 % (42.0-52.0); Hemoglobin 13.2 g/dL (14.1-18.0); Lymphocytes # 1.2 K/mm3 (0.7-4.5); Lymphocytes % 7.2 % (10-50); Mean Corpuscular HGB Conc 34.5 g/dL (31.8-35.4); Mean Corpuscular Hemoglobin 30.4 pg (27.0-31.2); Mean Corpuscular Volume 88.2 fl (80-94); Mean Platelet Volume 11.1 fl (7.4-10.4); Monocytes # 0.7 K/mm3 (0.1-1.0); Monocytes % 4.6 % (1.7-9.3); Neutrophils # 13.9 K/mm3 (1.8-7.8); Neutrophils % 86.5 % (37.0-80.0); Platelet Count 212 K/mm3 (142-424); Red Blood Count 4.34 M/mm3 (4.60-6.20); Red Cell Distribution Width 14.4 % (11.5-17.5); White Blood Count 16.1 K/mm3 (4.8-10.8)
[2024-03-24 13:51] LABS: MANUAL DIFFERENTIAL MANUAL DIFFERENTIAL (MANUAL DIFF)
[2024-03-24 13:55] LABS: Alanine Aminotransferase 25 U/L (12-78); Albumin Level 3.7 g/dl (3.5-5.0); Albumin/Globulin Ratio 1.4 (1.1-1.8); Alkaline Phosphatase 64 U/L (38-126); Anion Gap 16.7 mEq/L (5-15); Aspartate Amino Transferase 24 U/L (17-59); Bilirubin,Total 0.5 mg/dl (0.2-1.3); Blood Urea Nitrogen 42 mg/dl (9-20); Carbon Dioxide 23 mmol/L (22.0-30.0); Chloride 96 mmol/L (98-107); Creatinine Clearance Estimated 67 mL/min (50-200); Estimated Glomerular Filt Rate 50 ml/min (>60); GFR (African American) 61 ML/MIN (>60); Globulin 2.7 g/dL (1.3-3.2); Glucose 317 mg/dl (74-100); Potassium 3.7 mmoL/L (3.5-5.1); Sodium 132 mmol/L (136-145); Total Protein,Serum 6.4 g/dl (6.3-8.2)
[2024-03-24 13:56] LABS: Activated Partial Thrombo Time 27.1 seconds (22.8-30.6); INR 1.02 (0.9-1.1); Prothrombin Time 11.4 seconds (10.1-12.5)
[2024-03-24 13:57] LABS: Lactic Acid 2.6 mmol/L (0.7-2.1)
--- NOTE | 2024-03-24 13:59 | PC.NURSE ---
Calling [facility] transfer center for possible transfer
[2024-03-24 14:00] VITALS: BP 118/60; PULSE 75; O2SAT 96
[2024-03-24 14:01] LABS: Lymphocytes % 9 % (10-50); Monocytes % 5 % (2-9); Neutrophils % 86 % (42-76); Total Cells Counted 100
[2024-03-24 14:02] LABS: Platelet Estimate Normal; RBC Morphology Normal
[2024-03-24 14:13] LABS: C-Reactive Protein 339.3 mg/L (0-4)
[2024-03-24] MEDS: CLINDAMYCIN PHOSPHATE/D5W 900 MG/50 ML PIGGYBACK 100 MG IV (14:16)
[2024-03-24] MEDS: LACTATED RINGERS 1000ML 1,000 ML 999 ML IV (14:16)
--- NOTE | 2024-03-24 14:20 | PC.NURSE ---
speaking with [facility] MDs at this time
--- NOTE | 2024-03-24 14:22 | PC.NURSE ---
pt accepted to [facility] ER by Dr. Nuñez
[2024-03-24] MEDS: 0.9 % SODIUM CHLORIDE 1000ML 1,000 ML 999 ML IV (14:30)
--- NOTE | 2024-03-24 14:30 | PC.NURSE ---
Called EMS for ALS transport to [facility]
--- NOTE | 2024-03-24 14:35 | PC.NURSE ---
Case Management called for prior auth
[2024-03-24] MEDS: PIPERACILLIN/TAZO 3.375 GM in 0.9 % SODIUM CHLORIDE 50 ML IV (14:50)
[2024-03-24 14:55] VITALS: BP 112/62; PULSE 74; RESP 18; TEMP 36.6; O2SAT 99
[2024-03-24] MEDS: VANCOMYCIN CONSULT REQUEST 1 EACH NOTAPPLIC (15:21)
[2024-03-24 15:44] LABS: HIV Combo NEGATIVE (Negative)
[2024-03-24 15:51] LABS: Hepatitis C Ab Qual. W/ RFX NEGATIVE (Negative)
[2024-03-24 17:38] LABS: Reflex Lactic Add Lactic Reflex
== END 2024-03-24 14:55 | disposition short-term general hospital (02) ==
PROVIDERS: Emergency Provider Emergency Medicine; PCP Family Medicine
DX: R10.2 Pelvic and perineal pain (principal); A41.9 Sepsis, unspecified organism; N49.3 Fournier gangrene; F17.210 Nicotine dependence, cigarettes, uncomplicated
CPT/HCPCS: 74177; 80053; 83605; 84145; 85007; 85025; 85027; 85610; 85730; 86140; 86803; 87040; 87070; 87205; 87389; 96361; 96365; 96367; 99291; J0736; J2543; J7030; J7120; Q9967

== ENCOUNTER 2024-06-10 13:50 | Outpatient (CLI) | payer MEDICARE, SELFPAY ==
[2024-06-10 19:03] LABS: Basophils # 0.1 K/mm3 (0-0.2); Basophils % 1.1 % (0.1-2.0); Eosinophils # 0.3 Kmm3 (0.0-0.4); Eosinophils % 4.1 % (0.1-12.0); Hematocrit 40.2 % (42.0-52.0); Hemoglobin 13.2 g/dL (14.1-18.0); Immature Granulocytes # 0.02 10^3uL; Immature Granulocytes % 0.3 %; Lymphocytes # 2.8 K/mm3 (0.7-4.5); Mean Corpuscular HGB Conc 32.8 g/dL (31.8-35.4); Mean Corpuscular Hemoglobin 29.4 pg (27.0-31.2); Mean Corpuscular Volume 89.5 fl (80-94); Mean Platelet Volume 11.1 fl (7.4-10.4); Monocytes # 0.7 K/mm3 (0.1-1.0); Monocytes % 9.3 % (1.7-9.3); Neutrophils # 3.9 K/mm3 (1.8-7.8); Neutrophils % 49.2 % (37.0-80.0); Nucleated Red Blood Cells # 0 10^3/uL; Nucleated Red Blood Cells % 0 %; Platelet Count 239 K/mm3 (142-424); Red Blood Count 4.49 M/mm3 (4.60-6.20); Red Cell Distribution Width 13.8 % (11.5-17.5); White Blood Count 7.9 K/mm3 (4.8-10.8)
[2024-06-10 19:34] LABS: Alanine Aminotransferase 36 U/L (12-78); Albumin Level 4.5 g/dl (3.5-5.0); Alkaline Phosphatase 53 U/L (38-126); Aspartate Amino Transferase 28 U/L (17-59); Bilirubin,Total 0.6 mg/dl (0.2-1.3); Blood Urea Nitrogen 15 mg/dl (9-20); Calcium 9.3 mg/dl (8.4-10.2); Carbon Dioxide 28 mmol/L (22.0-30.0); Chloride 103 mmol/L (98-107); Estimated Glomerular Filt Rate 134 ml/min (>60); GFR (African American) 162 ML/MIN (>60); Globulin 2.3 g/dL (1.3-3.2); Glucose 134 mg/dl (74-100); Sodium 135 mmol/L (136-145); Total Protein,Serum 6.8 g/dl (6.3-8.2)
[2024-06-10 22:28] LABS: Hemoglobin A1C 6.8 % (4.0-6.0)
== END 2024-06-10 23:59 | disposition home or self-care (01) ==
LOC: LAB.DROPOF 06-11 12:06
PROVIDERS: PCP Family Medicine; Visit Provider Family Medicine
DX: N49.3 Fournier gangrene (principal); E11.9 Type 2 diabetes mellitus without complications
CPT/HCPCS: 80053; 83036; 85025

== ENCOUNTER 2024-07-22 12:00 | Outpatient (CLI) | payer MEDICARE, SELFPAY ==
--- OUTSIDE RECORDS SUMMARY | 2024-06-04 10:40 | XMS_ITS | Encounter Summary ---
Author Organization Healthcare Address [address] [place] [address] Care Team Providers Care Art Critic Name Role Phone Juan Gabriel MD Primary Care Provider [phone] Reason for Referral * Other Medical (Routine) - Pending Review Specialty Diagnoses / Procedures Referred By Contac t Referred To Contact Diagnoses Non-healing surgical wound, subsequent encounter Procedures Debridement Sole Watson APRN [address] [address] Phone: tel: fax: Referral ID Status Reason Start Date Expiration Date V isits Requested Visits Authorized [id number] Pending Review 06/04/2024 12/04/2025 1 1 Reason for Visit * Reason Comments Wound Check Encounter Details Date Type Department Care Team (Latest Contact Info) Description 06/04/2024 10:40 AM EDT Office Visit [place] [facility] [address] [facility] 5th Floor [address], [address] [place] [address] Sole Watson APRN [address] [address] Non-healing surgical wound, subsequent encounter (Primary Dx) Social History Tobacco Use Types Packs/Day Years Used Date Smoking Tobacco: Some Days Cigarettes 0.3 40.5 Started: 2024; Last attempted to quit: 07/06/1974 Passive Smoke Exposure: Current Smokeless Tobacco: Never Alcohol Use Standard Drinks/Week Comments Never 0 (1 standard drink = 0.6 oz pur e alcohol) Humiliation, Afraid, Rape, and Kick questionnair e Answer Date Recorded Within the last year, have y ou been afraid of your partner or ex-partner? No 03/26/2024 Within the last year, have y ou been humiliated or emotionally abused in other ways by your partner or ex-partner? No Within the last year, have y ou been kicked, hit, slapped, or otherwise physically hurt by your partner or ex-partner? No 03/26/2024 Within the last year, have y ou been raped or forced to have any kind of sexual activity by your partner or ex-partner? No 03/26/2024 Hunger Vital Sign Answer Date Recorded Within the past 12 months, y ou worried that your food would run out before you got the money to buy more. Never true 03/26/19 25 Within the past 12 months, t he food you bought just didn't last and you didn't have money to get more. Never true 03/26/2024 PRAPARE - Transportation Answer Date Re corded In the past 12 months, has l ack of transportation kept you from medical appointments or from getting medications? No 03/08 In the past 12 months, has l ack of transportation kept you from meetings, work, or from getting things needed for daily living? No 03/26/2024 Housing Stability Vital Sign Answer Hans e Recorded In the last 12 months, was t here a time when you were not able to pay the mortgage or rent on time? No 03/26/2024 Number of Times Moved in the Last Year Not on fi le 03/26/2024 At any time in the past 12 m [facility], were you homeless or living in a jail (including now)? No 03/26/2024 Utilities Answer Date Recorded In the past 12 months has th e electric, gas, oil, or water company threatened to shut off services in your home? No 03/26/2024 Sex and Gender Information Value Date Recorded Sex Assigned at Male 03/24/2024 4:04 PM EST Legal Sex Male 8:58 PM EDT Gender Identity Not on file Sexual Orientation Not on file documented as of this encounter Last Filed Vital Signs Vital Sign Reading Time Taken Comments Blood Pressure 154/74 06/04/2024 10:25 AM EDT Pulse 65 06/04/2024 10:25 AM EDT Temperature 36.6 C (97.8 F) 06/04/2024 10:25 AM EDT Respiratory Rate - - Oxygen Saturation - - Inhaled Oxygen Concentration - - Weight 95.5 kg (210 lb 8.6 oz) 06/04/2024 10:25 AM EDT Height - - Body Mass Index 35.04 05/07/2024 10:04 AM EDT documented in this encounter Miscellaneous Notes * Patient Instructions - Collette Prado RN - 06/04/2024 10:40 AM EDT [facility] Physician Orders/Patient Instructions Should you notice a significant change in your wound(s) (such as increased drainage, foul odor, or pain) or have questions or problems following these instructions, please contact us at or call your primary care physician or the hospital emergency rooms. Offloading: Keep weight off of wound at all times. Try not to sit for long periods of time. Change position at least every 2 hours. Use Z-linnette cushion given in clinic to help change position. Wound Care/Dressing: Wound location: perineum Cleanse Wound With: Dakins 1/4 strength solution Apply: Sprinkle with collagen powder first Then apply gauze moistened with normal saline (you may use kerlix) Cover With: ABD pad Secure With: Silicone tape and Mesh panties Dressing Changes: Daily (and as needed) -Will order supplies this visit through a [employer]. They will use your insurance for payment andwill mail it to your address. Preparation of Normal Saline Solution This solution is gentle on the tissues and may be used to rinse open wounds even if you were told not to shower or soak your wound in a bath. If you are told to apply a saline dressing, use this solution to moisten the gauze that you will apply to your wound. Equipment ad Ingredients: 1 gallon distilled water Measuring teaspoon Table salt Procedure: Wash the teaspoon in hot soapy water. Rinse well in hot water and dry. (You can use a mice raiser ifyou like.) Add 8 teaspoons of table salt to the gallon of distilled water and mix. Store the solution in your refrigerator. Make a new solution every month. How to Make Dakin???s Solution Dakin???s solution is used to kill germ growth in wounds. This recipe for Dakin???s solution may save you money and allow you to fix only the amount you need. Another name for this is diluted sodium hypochlorite solution 0.5%. Supplies: Sodium hypochlorite solution 5.25% (Clorox?? or similar household bleach). Be sure to purchase unscented bleach. We do not recommend using ultra bleach products that are more concentrated and thicker. Sodium bicarbonate (baking soda) Clean tap water Clean rosas with lid Sterile measuring cup and spoons. Sterile jar with sterile lid. Making the Solution: Wash your hands well with soap and water. Gather your supplies. Measure out 32 ounces (4 cups) of tap water. Pour into the clean rosas. Boil water for 15 minutes with the lid in the rosas. Remove from heat. Using a sterile measuring spoon, add ?? teaspoon of baking soda to the boiling water. Your doctor may have prescribed one of several strengths. Measure bleach according to the chart andadd to the water also: ?? Strength ?? Strength Clorox?? 3 Tbsp+1/2 tsp (or 48 ml) 1 Tbsp + 2 tsp (or 24 ml) Water [address] solution in a sterile jar. Close it tightly with the sterile lid. Cover the entire jar with aluminum foil to protect from light. Throw away any unused portion 48 hours after opening. Unopen jars can be stored for one month afteryou prepare them. Label: Label the jar with the date and time you made the solution Precautions: Keep out of reach of children If the solution is used as a mouth wash, do not swallow it. Do not use longer than one week, unless directed by your doctor. Do not use if you are allergic to any of the ingredients. Stop use of the solution if your condition worsens, or a rash or any other reaction develops. Call Your Doctor If You Have: Pain or burning sensation Rash or itching Redness of skin Swelling, hives or blisters Signs or symptoms of wound infection Storage: Keep the solution at room temperature. Cover jar with aluminum foil to protect from light. Be sure the jar lid is tight for storing. * Progress Notes - Sole Watson APRN - 06/04/2024 10:40 AM EDT Subjective Jason Suarez is a 68 y.o. male who comes to see us today for: Chief Complaint Wound Check HPI 68 year old male with history of necrotizing soft tissue infection s/p I & D on 03/24/24 presents for follow up of non healing surgical wound on buttocks and scrotum. He is currently using collagen powder. Patient Active Problem List Diagnosis Date Noted Constipation 04/03/2024 Protein calorie malnutrition (CMS/HCC) 04/03/2024 Electrolyte abnormality 04/03/2024 Class 2 obesity with body mass index (BMI) of 35.0 to 35.9 in adult 03/28/2024 Diabetic peripheral neuropathy ([facility]/HCC) 03/28/2024 Hypercholesterolemia 03/28/2024 Depression 03/28/2024 Hypertension 03/28/2024 CAD S/P percutaneous coronary angioplasty 03/25/2024 Type 2 diabetes mellitus 03/25/2024 COPD (chronic obstructive pulmonary disease) ([facility]/HCC) 03/25/2024 The following portions of the chart were reviewed this encounter and updated as appropriate: Allergies Meds Problems Subjective Review of Systems Skin: Positive for wound. All other systems reviewed and are negative. Objective Physical Exam Vitals and nursing note reviewed. Constitutional: Appearance: Normal appearance. He is obese. Cardiovascular: Rate and Rhythm: Normal rate. Pulmonary: Effort: Pulmonary effort is normal. Musculoskeletal: General: Normal range of motion. Skin: General: Skin is warm and dry. Comments: Right buttock/scrotum - full thickness pink wound bed. No slough or eschar. Moderate serosanguineous drainage with no odor. Periwound intact with no erythema, warmth, or induration. Measurements smaller. Neurological: Mental Status: He is alert and oriented to person, place, and time. Psychiatric: Behavior: Behavior normal. Procedures Assessment/Plan In Summary: Jason Suarez is a 68 y.o. year old male who presents for non healing surgical wound. Below is a summary of the diagnoses addressed in today's visit and any associated orders. Problem List Items Addressed This Visit None Visit Diagnoses Non-healing surgical wound, subsequent encounter - Primary Relevant Orders Debridement Recommend to cleanse with 1/4% Dakin's solution. Pack with moist to moist using normal saline. Change twice daily. Counseled on signs and symptoms of infection. Advised to contact us or present to the closest emergency department with any concerns. We will see him back for: Follow up in about 4 weeks (around 07/02/2024). documented in this encounter Plan of Treatment Upcoming Encounters Date Type Department Care Team (Late st Contact Info) Description 07/30/2024 1:00 PM EDT Office Visit [facility] [address] [facility] 5th Floor [address], [address] [place] [phone] Sole Watson APRN [address] [facility] [address] [place] [address] Pending Results Name Type Priority Associated Diagnoses Date /Time DME Order General Supply Routine 06/04/2024 11:48 AM EDT Scheduled Orders Name Type Priority Associated Diagnoses Orde r Schedule Debridement Procedures Routine Non-healing surgical wound, subsequent encounter 1 Occurrences starting 06/04/2024 until 08/04/2024 documented as of this encounter Visit Diagnoses Diagnosis Non-healing surgical wound, subsequent encounter- Primary documented in this encounter Additional Health Concerns Assessment Noted Time A fall risk assessment has been complete d for the patient 06/04/2024 10:28 AM EDT A Body Mass Index follow-up plan has been documented for the patient 06/04/2024 11:07 AM EDT documented as of this encounter Care Teams Art Critic Relationship Specialty Start Date End Date Juan Gabriel MD [address] [place] [address] PCP - General 03/24/24 documented as of this encounter
--- OUTSIDE RECORDS SUMMARY | 2024-07-03 13:00 | XMS_ITS | Encounter Summary ---
Author Organization Healthcare Address [address] [place] [address] Care Team Providers Care Key Cutter Name Role Phone Juan Gabriel MD Primary Care Provider [phone] Reason for Referral * Other Medical (Routine) - Pending Review Specialty Diagnoses / Procedures Referred By Contac t Referred To Contact Diagnoses Non-healing surgical wound, subsequent encounter Procedures Debridement Sole Watson APRN [address] [address] Phone: tel: fax: Referral ID Status Reason Start Date Expiration Date V isits Requested Visits Authorized [id number] Pending Review 07/03/2024 01/02/2026 1 1 Reason for Visit * Reason Comments Wound Check Encounter Details Date Type Department Care Team (Latest Contact Info) Description 07/03/2024 1:00 PM EDT Office Visit [place] [facility] [address] [facility] 5th Floor [address] [place] [address] Sole Watson APRN [address] [address] Non-healing surgical wound, subsequent encounter [...] any time in the past 12 m [facility], were you homeless or living in a senior living (including now)? No 03/26/2024 Utilities Answer Date [...] Sign Reading Time Taken Comments Blood Pressure 151/80 07/03/2024 12:52 PM EDT Pulse 66 07/03/2024 12:52 PM EDT Temperature 37.1 C (98.7 F) 07/03/2024 12:52 PM EDT Respiratory Rate - - Oxygen Saturation 96% 07/03/2024 12:52 PM EDT Inhaled Oxygen Concentration - - Weight 95.3 kg (210 lb) 07/03/2024 12:52 PM EDT Height 165.1 cm (5' 5 ) 07/03/2024 12:52 PM EDT Body Mass Index 34.95 07/03/2024 12:52 PM EDT documented in this encounter Miscellaneous Notes * Patient Instructions - Collette Prado RN - 07/03/2024 1:00 PM EDT [facility] Physician Orders/Patient Instructions Should you notice a [...] Then apply gauze moistened with normal saline Cover With: ABD pad Secure With: Silicone tape and Mesh panties Dressing Changes: Daily (and as needed) -Will order supplies this visit through a [employer]. They will use your insurance for payment [...] water and dry. (You can use a purchaser ifyou like.) Add 8 teaspoons of table [...] jars can be stored for one month after you prepare them. Label: Label the jar with [...] Progress Notes - Sole Watson APRN - 07/03/2024 1:00 PM EDT Subjective Jason Suarez is a 68 [...] Date Noted Constipation 04/03/2024 Protein calorie malnutrition ([facility]/HCC) 04/03/2024 Electrolyte abnormality 04/03/2024 Class 2 obesity with body mass index (BMI) of 35.0 to 35.9 in adult 03/28/2024 Diabetic peripheral neuropathy ([facility]) 03/28/2024 Hypercholesterolemia 03/28/2024 Depression 03/28/2024 Hypertension 03/28/2024 CAD S/P percutaneous coronary angioplasty 03/25/2024 Type 2 diabetes mellitus 03/25/2024 COPD (chronic obstructive pulmonary disease) ([facility]) 03/25/2024 The following portions of the chart [...] subsequent encounter - Primary Relevant Orders Debridement Clean with 1/4 strength Dakins solution. Apply collagen powder then apply normal saline moistened gauze, cover with ABD pad, secure with silicone tape and mesh panties. Change daily. Counseled on signs and symptoms of infection. Advised to contact us or present to the closest emergency department with any concerns. We will see him back for: Follow up in about 4 weeks (around 07/31/2024). documented in this encounter Plan of Treatment Upcoming Encounters Date Type Department Care Team (Late st Contact Info) Description 07/30/2024 1:00 PM EDT Office Visit [facility] [address] [place] [address] Sole Watsno APRN [address] [facility] [address] [place] [address] Scheduled Orders Name Type Priority Associated Diagnoses Orde r Schedule Debridement Procedures Routine Non-healing surgical wound, subsequent encounter 1 Occurrences starting 07/03/2024 until 09/02/2024 documented as of this encounter Procedures Procedure Name Priority Date/Time Associated Diagnosis Comments [facility] [employer] [employer] [facility] ORDER Routine 07/03/2024 4:09 PM EDT documented in this encounter Results * DME Order (07/03/2024 4:09 PM EDT) [facility] SUP[facility]IER NAME [facility] (Wound Care) [facility] SUP[facility] PHONE [facility] DELIVERY STATUS Delivery Successful [facility] DELIVERY NOTE [facility] REQUESTED DELIVERY DATE 07/03/2024 [facility] ACTUAL DELIVERY DATE 07/03/2024 [facility] ITEM DESCRIPTION Triple [place] Collagen Powder, 1 g., Box (5) [facility] Comment:Qty: 6 [facility] ITEM DESCRIPTION Dukal Sterile Post-Op Sponge, 8-ply, 4 x 4 in., Box (25 packs of 2) [facility] Comment: Qty: 2 Refills: 1 [facility] ITEM DESCRIPTION Medline Premium Sterile Abdominal Pads, 5 x 9 in., Each (1) [facility] Comment: Qty: 60 Refills: 1 [facility] ITEM DESCRIPTION Sterilux AMD PHMB Gauze Roll, 4.5 in. x 4.1 yd., Each (1) [facility] Comment: Qty: 30 Refills: 1 [facility] ITEM DESCRIPTION Covidien Tenderskin Tape Paper, 3 x10yd, Wai Hypoallergenic , Each (1) [facility] Comment:Qty: 4 [facility] ITEM DESCRIPTION Sterile Saline 500ML [facility] Comment:Qty: 2 07/03/2024 4:09 PM EDT Sole Watson APRN DME ORDERABLES Final Resu lt [facility] documented in this encounter Visit Diagnoses Diagnosis Non-healing surgical wound, subsequent encounter- Primary documented in this encounter Additional Health Concerns Assessment Noted Time A fall risk assessment has been complete d for the patient 07/03/2024 12:56 PM EDT A Body Mass Index follow-up plan has been documented for the patient 07/03/2024 1:08 PM EDT documented as of this encounter Care Teams Key Cutter Relationship Specialty Start Date End Date Juan Gabriel MD [address] [place] [id number] PCP - General 03/24/24 documented as of this encounter
[2024-07-22 19:27] LABS: Creatinine,Urine Random 77 mg/dL (Not Estab.); Microalbumin/Creatinine Ratio 404.4
--- OUTSIDE RECORDS SUMMARY | 2024-07-23 09:36 | XMS_ITS | Clinical Summary ---
Author Organization [facility] Address [address] [place] [address] Care Team Providers Care Component Prep Operator Name Role Phone Juan Gabriel MD Primary Care Provider [phone] Allergies No known active allergies Medications fluticasone-salme terol (Wixela Inhub) 250-50 MCG/ACT diskus inhaler Inhale 1 puff in the morning and 1 puff before bedtime. Rinse mouth with water after use to reduce aftertaste and incidence of candidiasis. Do not swallow. Active gabapentin (Neurontin) 300 MG capsule Take 1 capsule (300 mg) by mouth in the morning and 1 capsule (300 mg) in the evening and 1 capsule (300 mg) before bedtime. Active losartan-hydroCHL OROthiazide (Hyzaar) 100-25 MG tablet Take 1 tablet by mouth in the morning. Active rosuvastatin (Crestor) 20 MG tablet Take 1 tablet (20 mg) by mouth nightly. Active aspirin 81 MG EC tablet Take 1 tablet (81 mg) by mouth in the morning. Active prasugrel (Effient) 10 MG tablet Take 1 tablet (10 mg) by mouth in the morning. Active buPROPion XL (Wellbutrin XL) 150 MG 24 hr tablet Take 1 tablet (150 mg) by mouth in the morning. Do not crush, chew, or split. Active metFORMIN (Glucophage) 850 MG tablet Take 1 tablet (850 mg) by mouth daily with breakfast. Active amLODIPine (Norvasc) 5 MG tablet Take 1 tablet (5 mg) by mouth in the morning. Active carvedilol (Coreg) 25 MG tablet Take 1 tablet (25 mg) by mouth in the morning and 1 tablet (25 mg) in the evening. Take with meals. Active potassium chloride CR (Klor-Con) 10 MEQ ER tablet Take 1 tablet (10 mEq) by mouth in the morning. Do not crush, chew, or split. Active dulaglutide 0.75 MG/0.5ML solution auto-injector Inject 0.75 mg under the skin every 7 (seven) days. Active acetaminophen (Tylenol) 500 MG tablet Take 2 tablets (1,000 mg) by mouth every 6 (six) hours. 100 tablet 5 Active polyethylene glycol (Miralax) 17 g packet Take 17 g by mouth daily. 30 packet 5 Active Blood Glucose Monitoring Suppl device Test two times daily 1 each 5 Active glucose blood test strip Test two times daily 100 strip 5 Active Lancets misc Test two times daily 100 each 5 Active Alcohol Sheets (Alcoh-Wipe) sheet Use as directed. 100 each 5 Active pen needle, diabetic 31G X 5 MM misc Use as directed with insulin pen. 100 each 5 Active pen needle, diabetic 31G X 5 MM misc Use as directed with insulin pen. 100 each 5 Active insulin glargine (Lantus SoloStar) 100 UNIT/ML injection pen Inject 18 Units under the skin nightly. 15 mL 3 5 Active insulin lispro 100 UNIT/ML injection pen Inject 6 Units under the skin 3 (three) times a day with meals. Add a correction scale dose as follows: blood sugar 150-199 use 1 unit, 200-249 use 2 units, 250-299 use 3 units, 300-349 use 4 units, 350-399 use 5 units, >399 use 6 units and call provider. 15 mL 3 5 Active Sodium Hypochlorite (Dakins, 1/ strength,) 0.125 % solutionIndicatio ns:Necrotizing soft tissue infection 1/4 strength Dakins solution for wound care. Use twice daily and as needed. 473 mL 8 5 Active sodium chloride 0.9 % irrigation solution 1000 ml bottles x 2 2000 mL 3 5 Active alcohol swabs (UltiCare) 70 % pads 5 Active gemfibrozil (Lopid) 600 MG tablet Take 1 tablet by mouth 2 times a day. 5 Active Active Problems Problem Noted Date Diagnosed Date Constipation 04/03/2024 Protein calorie malnutrition 04/03/2024 Electrolyte abnormality 04/03/2024 Overview (04/03/2024): Monitor/trend Replete as needed Class 2 obesity with body ma ss index (BMI) of 35.0 to 35.9 in adult 03/28/2024 Overview (04/02/2024): BMI 34.41 Diabetic peripheral neuropathy 03/28/2024 Overview (04/02/2024): Continue home meds Hypercholesterolemia 03/28/2024 Overview (03/28/2024): Continue home meds Depression 03/28/2024 Overview (04/02/2024): Continue home meds Hypertension 03/28/2024 Overview (04/02/2024): Holding home meds, restart when appropriate CAD S/P percutaneous coronary angioplasty 2024 Overview (04/02/2024): H/o 3 PCI most recent intervention in 2023 on DAPT (ASA and prusagrel) Type 2 diabetes mellitus 03/25/2024 Overview (04/02/2024): Last A1C 8.7 on 03/24/24 Hold home meds Stop SGLT2i empagliflozin on discharge 2/2 NSTI. Will dc home with new insulin needs. DM educator consulted for teaching. Will need to follow up with PCP in 1 week post discharge for further evaluation/management. COPD (chronic obstructive pulmonary disease) Overview (04/02/2024): Pulmonary hygiene, IS Nebs as needed Resolved Problems Problem Noted Date Diagnosed Date Resolved Date Necrotizing soft tissue infection 03/24/2024 04/03/2024 Overview (04/02/2024): 03/24 I&D 03/26 I&D w/ wound vac Possible closure 04/02 Encounters Date Type Department Care Team Description 07/03/2024 1:00 PM EDT Office Visit [facility] [address] [place] [address] Sole Watson APRN Non-healing surgical wound, subsequent encounter (Primary Dx) 07/03/2024 Travel 06/04/2024 10:40 AM EDT Office Visit [facility] [address] [facility] 5th Floor [address] [place] [address] oSle Watson APRN Non-healing surgical wound, subsequent encounter (Primary Dx) 06/04/2024 Travel 05/07/2024 10:20 AM EDT Office Visit [facility] [address] [facility] 5th Floor [address] [place] [address] Sole Watson APRN Non-healing surgical wound, subsequent encounter (Primary Dx) 05/07/2024 Travel 04/30/2024 Travel 04/24/2024 10:00 AM EDT Office Visit [facility] [address] [facility] [place] [address] Edie Higginbotham MD Type 2 diabetes mellitus with other skin complication, unspecified whether senior care insulin use ([facility]) (Primary Dx); Encounter for change or removal of drains; Necrotizing soft tissue infection 04/24/2024 Travel from Last 3 Months Family History Medical History Relation Name Comments Hearing loss Father Jason Suarez Sr. Relation Name Status Comments Father Jason Suarez Sr. Alive Social History Tobacco Use Types Packs/Day Years Used Date Smoking Tobacco: Some Days Cigarettes 0.3 40.5 Started: 2024; Last attempted to quit: 07/06/1974 Passive Smoke Exposure: Current Smokeless Tobacco: Never Tobacco Cessation:Ready to Q uit: No; Counseling Given: No Alcohol Use Standard Drinks/Week Comments Never 0 [...] any time in the past 12 m [facility], were you homeless or living in a [place] health care facility (including now)? No 03/26/2024 Utilities Answer Date Recorded In the past 12 months has th e electric, gas, oil, or water company threatened to shut off services in your home? No 03/26/2024 Sex and Gender Information Value Date Recorded Sex Assigned at Male 03/24/2024 4:04 PM EST Legal Sex Male 8:58 PM EDT Gender Identity Not on file Sexual Orientation Not on file Last Filed Vital Signs Vital Sign Reading Time Taken Comments Blood Pressure 151/80 07/03/2024 12:52 PM EDT Pulse 66 07/03/2024 12:52 PM EDT Temperature 37.1 C (98.7 F) 07/03/2024 12:52 PM EDT Respiratory Rate 16 04/15/2024 11:40 AM EDT Oxygen Saturation 96% 07/03/2024 12:52 PM EDT Inhaled Oxygen Concentration - - Weight 95.3 kg (210 lb) 07/03/2024 12:52 PM EDT Height 165.1 cm (5' 5 ) 07/03/2024 12:52 PM EDT Body Mass Index 34.95 07/03/2024 12:52 PM EDT Plan of Treatment Upcoming Encounters Date Type Department Care Team (Late st Contact Info) Description 07/30/2024 1:00 PM EDT Office Visit [facility] [address] [place] [address] Sole Watson, NUMERICAL CONTROL MACHINE MACHINIST [address] [facility] [address] [place] [address] Health Maintenance Due Date Last Done Comments [facility]-Depression Screening 1955 [facility]-Medicare Annual Wellness (AWV) 1955 [facility]-/Child/Adol SDOH Screenings 1955 Diabetes: Dental Exam 1964 CT Colonography 07/10/1999 Colonoscopy 07/10/1999 FIT-DNA 07/10/1999 FIT 07/10/1999 FOBT 07/10/1999 Sigmoidoscopy 07/10/1999 [facility]-Colorectal Cancer Screening 07/10/1999 [facility]-RSV Vaccine: 60+ Years or (1 - Risk 60-74 years 1-dose series) 2014 [facility]-Abdominal Aortic Aneurysm (AAA) Screening 07/10/2019 [facility]-Zoster Vaccines (2 of 3) 09/11/2022 07/17/2022 [id number] Vaccine ( season) 2024 10/24/2023, 12/07/2021, 06/27/2021, Additional history exists [facility]-Diabetes: Hemoglobin A1C 06/23/2024 03/24/2024 [facility]- SDOH Screenings 09/23/2024 [facility]-Adult SDOH Screenings 09/23/2024 03/26/2024 [facility]-Pneumococcal Vaccine: 50+ Years (3 of 3 - PCV20 or PCV21) 09/29/2024 09/30/2019, 11/29/2018 [facility]-Influenza Vaccine (Season Ended) 2024 11/11/2021, 11/12/2020, 11/06/2019, Additional history exists [facility]-DTaP,Tdap,and Td Vaccines (3 - Td or Tdap) 02/14/2029 02/14/2019, 04/06/2017 [facility]-Hepatitis C Screening Completed 03/24/2024 [facility]-Obesity Intervention Completed 025, 06/04/2024, 05/07/2024, Additional history exists HPV Vaccines Aged Out No longer eligi ble based on patient's age to complete this topic [facility]-HIB Vaccines Aged Out No longer e ligible based on patient's age to complete this topic [facility]-Hepatitis A Vaccines Aged Out No longer eligible based on patient's age to complete this topic [facility]-IPV Vaccines Aged Out No longer e ligible based on patient's age to complete this topic [facility]-Rotavirus Vaccines Aged Out No lo nger eligible based on patient's age to complete this topic Procedures Procedure Name Priority Date/Time Associated Diagnosis Comments [facility] ORDER Routine 07/03/2024 4:09 PM EDT [facility] HEALTH ORDER Routine 05/07/2024 3:33 PM EDT SUTURE REMOVAL Routine 05/07/2024 10:20 AM EDT Non-healing surgical wound, subsequent encounter HEPATITIS C ANTIBODY - ED W/REFLEX TO HCV QUANT PCR STAT 03/24/2024 4:29 PM EST HEMOGLOBIN A1C STAT 03/24/2024 4:29 PM EST from Last 3 Months or Most Recently Relevant to Health Maintenance Results * DME Order (07/03/2024 4:09 PM EDT) Only the most recent of2 resultswithin the time period is included. [facility] NAME [facility] (Wound Care) [facility] PHONE [facility] [...] DME Comment:Qty: 2 07/03/2024 4:09 PM EDT us Sole Watson NUMERICAL CONTROL MACHINE MACHINIST DME ORDERABLES Final Resu lt [facility] * SUTURE REMOVAL (05/07/2024 10:20 AM EDT) Narrative Sloe Watson APRN - 05/07/2024 10:20 AM EDT Sole Watson APRN 05/07/2024 12:35 PM Suture removal Performed by: Sole Watson APRN Authorized by: Sole Watson APRN Consent: Consent obtained: Written Consent given by: Patient Risks, benefits, and alternatives were discussed: yes Risks discussed: Bleeding and pain Alternatives discussed: No treatment and delayed treatment [place] protocol: Procedure explained and questions answered to patient or proxy's satisfaction: yes Immediately prior to procedure, a time out was called: yes Patient identity confirmed: Verbally with patient Location: Location: Anogenital Anogenital location: Perineal Procedure details: Wound appearance: No signs of infection Number of sutures removed: 4 Post-procedure details: Procedure completion: Tolerated well, no immediate complications us Sole Watson APRN IN CLINIC/BEDSIDE ORDERABL ES Final Result * Hepatitis C Antibody - ED (03/24/2024 4:29 PM EST) Hepatitis C Antibody Negative Negative 03/24/2024 5:39 PM EST [facility] Blood Venous blood specimen / Unknown Venipuncture / Unknown 03/24/2024 4:29 PM EST 03/24/2024 4:56 PM EST us Eitan Degroot MD LAB BLOOD ORDERABLES Final Result Performing Organization Address City/State/[facility] Co de Phone Number [facility] [address] [place] [address] * (ABNORMAL) Hemoglobin A1c (03/24/2024 4:29 PM EST) Hemoglobin A1c 8.7(H) <5.7 % 03/24/2024 5:42 PM EST [facility] Blood Venous blood specimen / Unknown Venipuncture / Unknown 03/24/2024 4:29 PM EST 03/24/2024 4:51 PM EST Narrative [facility] - 03/24/2024 5:42 PM EST HA1C Interpretive Data: Diagnosis of Diabetes: Diabetic > or = 6.5% Pre-diabetic 5.7 to 6.4% Non-diabetic < or = 5.6% Glycemic Targets for Type I and Type II Diabetics: Non- Adults <7.0% Adults <6.0% Children and Adolescents <7.5% Source: [place] [employer]. Standards of medical care in diabetes,2017. Diabetes Care.2017:40 (suppl 1):S1-S135. HbA1c assay performed by an ion-exchange chromatography method that is certified traceable to the DCCT. Eitan Degroot MD LAB BLOOD ORDERABLES Final Result [facility] [address] [place] [address] from Last 3 Months or Most Recently Relevant to Health Maintenance Insurance [employer] MEDICARE Advance Directives * Full Code (Latest Code Status on File) Date Activated Date Inactivated Comments 03/24/2024 8:36 PM 04/03/2024 9:37 PM Question Answer Comments Patient has decision-making capacity? Yes Care Teams Component Prep Operator Relationship Specialty Start Date End Date Juan Gabriel MD [address] [place] [address] PCP - General 03/24/24
--- OUTSIDE RECORDS SUMMARY | 2024-07-23 09:36 | XMS_ITS | Encounter Summary ---
Author Organization Healthcare Address [address] [place] [address] Care Team Providers Care Jet Ski Mechanic Name Role Phone Juan Gabriel MD Primary Care Provider [phone] Encounter Details Date Type Department Care Team (Latest Contact Info) Description 06/04/2024 Travel Social History Tobacco Use Types Packs/Day Years [...] any time in the past 12 m [facility], were you homeless or living in [...] on file documented as of this encounter Plan of Treatment Upcoming Encounters Date Type Department Care Team (Late st Contact Info) Description 07/30/2024 1:00 PM EDT Office Visit [facility] [address] [facility] 5th Floor [address] [place] [address] Sole Watson, NUT ROASTER HELPER [address] [facility] [address] [place] [address] documented as of this encounter Visit Diagnoses Not on filedocumented in this encounter Additional Health Concerns Assessment Noted Time A fall risk assessment has been complete d for the patient 06/04/2024 10:28 AM EDT A Body Mass Index follow-up plan has been documented for the patient 06/04/2024 11:07 AM EDT documented as of this encounter Care Teams Jet Ski Mechanic Relationship Specialty Start Date End Date Juan Gabriel MD [address] [place] [id number] PCP - General 03/24/24 documented as of this encounter
--- OUTSIDE RECORDS SUMMARY | 2024-07-23 09:36 | XMS_ITS | Clinical Summary ---
Author Organization [facility] [place] [address] Care Team Providers Care Rn Cardiovascular Name Role Phone Unavailable Primary Care Provider Unavailabl e Social History Tobacco Use Types Packs/Day Years Used Date Smoking Tobacco: Never Assessed Sex and Gender Information Value Date Recorded Sex Assigned at Not on file Legal Sex Male 6:12 AM EDT Gender Identity Not on file Sexual Orientation Not on file Plan of Treatment Health Maintenance Due Date Last Done Comments Annual Wellness Exam 1957 Hepatitis C Screening 1972 DTaP/TDaP/Td (1 - Tdap) 1973 Cologuard 07/10/1999 Colon Cancer Screening 07/10/1999 Colonoscopy 07/10/1999 FIT 07/10/1999 Sigmoidoscopy 07/10/1999 Virtual Colonography 07/10/1999 Pneumococcal Vaccine 50+ (1 of 1 - PCV) 2004 Zoster (1 of 2) 2004 COVID-19 Vaccine (2023-2 5 season) 2023 Influenza Vaccine (Season Ended) 2024 Hepatitis B Vaccine Aged Out No longe r eligible based on patient's age to complete this topic Meningococcal B Vaccine Aged Out No l onger eligible based on patient's age to complete this topic
--- OUTSIDE RECORDS SUMMARY | 2024-07-23 09:36 | XMS_ITS | Encounter Summary ---
Author Organization Healthcare Address [address] [place] [address] Care Team Providers Care Tapper Shank Name Role Phone Juan Gabriel MD Primary Care Provider [phone] Encounter Details Date Type Department Care Team (Latest Contact Info) Description 07/03/2024 Travel Social History Tobacco Use Types Packs/Day [...] any time in the past 12 m [facility], were you homeless or living in a snf (including now)? No 03/26/2024 Utilities Answer Date [...] Description 07/30/2024 1:00 PM EDT Office Visit [facility] [address] [facility] 5th Floor [address] [place] [address] Sole Watson, VOCATIONAL REHABILITATION SPECIALIST [address] [facility] [address] [place] [address] documented as of this encounter Visit Diagnoses Not on filedocumented in this encounter Additional Health Concerns Assessment Noted Time A fall risk assessment has been complete d for the patient 07/03/2024 12:56 PM EDT A Body Mass Index follow-up plan has been documented for the patient 07/03/2024 1:08 PM EDT documented as of this encounter Care Teams Tapper Shank Relationship Specialty Start Date End Date Juan Gabriel MD [address] [place] [id number] PCP - General 03/24/24 documented as of this encounter
== END 2024-07-22 23:59 | disposition home or self-care (01) ==
LOC: LAB.DROPOF 07-23 09:32
PROVIDERS: PCP Family Medicine; Visit Provider Family Medicine
DX: E11.9 Type 2 diabetes mellitus without complications (principal)
CPT/HCPCS: 82043; 82570

== ENCOUNTER 2024-11-20 16:25 | Emergency (ER) | payer MEDICARE, SELFPAY ==
--- OUTSIDE RECORDS SUMMARY | 2024-10-14 13:00 | XMS_ITS | Encounter Summary ---
Author Organization Healthcare Address [address] [place] [address] Care Team Providers Care Product Development Worker Name Role Phone Juan Gabriel MD Primary Care Provider [phone] Reason for Referral * Other Medical (Routine) - Pending Review Specialty Diagnoses / Procedures Referred By Contdena t Referred To Contact Diagnoses Non-healing surgical wound, subsequent encounter Procedures Debridement Sole Watson APRN [address] [address] Phone: tel: fax: Referral ID Status Reason Start Date Expiration Date V isits Requested Visits Authorized [id number] Pending Review 10/14/2024 04/15/2026 1 1 Reason for Visit * Reason Comments Non-healing surgical wound, subsequent e ncounter Encounter Details Date Type Department Care Team (Latest Contact Info) Description 10/14/2024 1:00 PM EDT Office Visit [facility] [address] [facility] 5th Floor [address] [place] [address] Sole Watson APRN [address] [address] Non-healing surgical wound, subsequent encounter (Primary Dx); Necrotizing soft tissue infection; Type 2 diabetes mellitus with other skin complication, unspecified whether buttermaker insulin use (CMS/[facility]); Class 2 obesity with body mass index (BMI) of 35.0 to 35.9 in adult, unspecified obesity type, unspecified whether serious comorbidity present Social History Tobacco Use Types Packs/Day Years Used Date Smoking Tobacco: Every Day Cigarettes 0.3 40.8 Started: 2024; Last attempted to quit: 07/06/1974 Passive Smoke Exposure: Current Smokeless Tobacco: Never Tobacco Cessation:Ready to Q uit: Not Asked; Counseling Given: Not Answered Alcohol Use Standard Drinks/Week Comments Never 0 [...] any time in the past 12 m [facility], were you homeless or living in a skilled nursing (including now)? No 03/26/2024 AUDIT-C Answer Date Recorded Q1: How often do you have a drink containing alcohol? Never 09/03/2024 Q2: How many drinks containi ng alcohol do you have on a typical day when you are drinking? Patient does not drink Q3: How often do you have si x or more drinks on one occasion? Never 09/03/2024 Utilities Answer Date Recorded In the past 12 months has [employer], oil, or water [employer] threatened to shut off services in your home? No 03/26/2024 Sex and Gender Information Value Date Recorded Sex Assigned at Male 03/24/2024 4:04 PM EST Legal Sex Male 8:58 PM EDT Gender Identity Not on file Sexual Orientation Not on file documented as of this encounter Last Filed Vital Signs Vital Sign Reading Time Taken Comments Blood Pressure 143/71 10/14/2024 12:46 PM EDT Pulse 62 10/14/2024 12:46 PM EDT Temperature 36.5 C (97.7 F) 10/14/2024 12:46 PM EDT Respiratory Rate - - Oxygen Saturation 97% 10/14/2024 12:46 PM EDT Inhaled Oxygen Concentration - - Weight 92.2 kg (203 lb 4.2 oz) 10/14/2024 12:46 PM EDT Height 165.1 cm (5' 5 ) 10/14/2024 12:46 PM EDT Body Mass Index 33.82 10/14/2024 12:46 PM EDT documented in this encounter Miscellaneous Notes * Patient Instructions - Liliam De La Rosa RN - 10/14/2024 1:00 PM EDT [facility] Physician Orders/Patient Instructions Should you notice a significant change in your wound(s) (such as increased drainage, foul odor, or pain) or have questions or problems following these instructions, please contact us at or call your primary care physician or the hospital emergency rooms. Offloading: Try not to sit for long periods of time. Change position at least every 2 hours. Use Z-linnette cushion given in clinic to help change position. Wound Care/Dressing: Wound location: perineum - HEALED Cleanse Wound With: Mild soap and water * Progress Notes - Sole Watson APRN - 10/14/2024 1:00 PM EDT Subjective Jason Suarez is a 69 y.o. male who comes to see us today for: Chief Complaint Non-healing surgical wound, subsequent encounter HPI 69 year old male with history of necrotizing soft tissue infection s/p I & D on 03/24/24 presents for follow up of non healing surgical wound on buttocks and scrotum. Denies drainage, pain, or tenderness in the area. Patient Active Problem List Diagnosis Date Noted Constipation 04/03/2024 Protein calorie malnutrition ([facility]/HCC) 04/03/2024 Electrolyte abnormality 04/03/2024 Class 2 obesity with body mass index (BMI) of 35.0 to 35.9 in adult 03/28/2024 Diabetic peripheral neuropathy ([facility]) 03/28/2024 Hypercholesterolemia 03/28/2024 Depression 03/28/2024 Hypertension 03/28/2024 CAD S/P percutaneous coronary angioplasty 03/25/2024 Type 2 diabetes mellitus 03/25/2024 COPD (chronic obstructive pulmonary disease) ([facility]) 03/25/2024 The following portions of the chart [...] warm and dry. Comments: Right buttock/scrotum - appears to be closed in a divot. No drainage. Neurological: Mental Status: He is alert and oriented to person, place, and time. Psychiatric: Behavior: Behavior normal. Procedures Assessment/Plan In Summary: Jason Suarez is a 69 y.o. year old male who presents for non healing surgical wound. Below is a summary of the diagnoses addressed in today's visit and any associated orders. Problem List Items Addressed This Visit Type 2 diabetes mellitus Class 2 obesity with body mass index (BMI) of 35.0 to 35.9 in adult (Chronic) Other Visit Diagnoses Non-healing surgical wound, subsequent encounter - Primary Relevant Orders Debridement Necrotizing soft tissue infection Wound closed. No open areas. We will see him back for: Follow up if symptoms worsen or fail to improve. documented in this encounter Plan of Treatment Scheduled Orders Name Type Priority Associated Diagnoses Orde r Schedule Debridement Procedures Routine Non-healing surgical wound, subsequent encounter 1 Occurrences starting 10/14/2024 until 12/14/2024 documented as of this encounter Visit Diagnoses Diagnosis Non-healing surgical wound, subsequent encounter- Primary Necrotizing soft tissue infection Type 2 diabetes mellitus with other skin complication, unspecified whether care home insulin use Class 2 obesity with body mass index (BMI) of 35.0 to 35.9 in adult, unspecified obesity type, unspecified whether serious comorbidity present documented in this encounter Additional Health Concerns Assessment Noted Time A fall risk assessment has been complete d for the patient 10/14/2024 12:50 PM EDT A Body Mass Index follow-up plan has been documented for the patient 10/14/2024 1:37 PM EDT documented as of this encounter Care Teams Product Development Worker Relationship Specialty Start Date End Date Juan Gabriel MD [address] [place] [address] PCP - General 03/24/24 documented as of this encounter
[2024-11-20] VITALS (7 sets, daily range): BP systolic 128–151; BP diastolic 65–77; PULSE 58–65; RESP 15–18; TEMP 36.8–37; O2SAT 95–98; BMI 34.1
--- NOTE | 2024-11-20 16:48 | ED_ITS ---
<Statement entered by Vaishali Dill DO - 11/20/24 21:05> I was consulted by the PAXTON, and we discussed the complexity of problems being addressed. I approve the treatment and management plan for this patient's care in the emergency department, thus performing a substantial portion of the medical decision making. Vaishali Dill DO Discharge Plan Disposition Patient Disposition: Home, Self-Care Condition: Good Prescriptions Prescriptions: No Action coQ10 (ubiquinol) [Qunol Serg CoQ10] 100 mg capsule 100 mg PO BID cyclobenzaprine 10 mg tablet 10 mg PO TID PRN (Reason: muscle spasm) Qty: 30 0RF nystatin 100,000 unit/mL suspension 4 ml PO QID 10 Days Qty: 160 1RF Rx Instructions: swish, gargle, and swallow fluconazole 150 mg tablet 150 mg PO QWEEK Qty: 3 1RF (DME) pen needle, diabetic [Easy Touch] 31 gauge x 3/16 needle See Rx Instructions .ROUTE .MEDSUPPLY Qty: 1200 Patient Comments: USE DIRECTED WITH INSULIN 4 TIMES DAILY Rx Instructions: As directed (DME) blood-glucose meter [OneTouch Verio Flex meter] Misc See Rx Instructions .ROUTE .MEDSUPPLY Qty: 1 Rx Instructions: As directed insulin glargine [Lantus Solostar U-100 Insulin] 100 unit/mL (3 mL) insulin pen See Rx Instructions SQ DAILY Rx Instructions: Daily insulin lispro [Humalog KwikPen Insulin] 100 unit/mL insulin pen 18 unit SQ USEASDIRECTD Rx Instructions: Sliding Scale doxycycline hyclate 100 mg capsule 100 mg PO BID Qty: 20 0RF (DME) lancets [Droplet Lancets] 30 gauge misc See Rx Instructions .ROUTE .MEDSUPPLY Qty: 100 11RF Rx Instructions: As directed Trulicity 0.75 mg/0.5 mL pen injector 0.75 mg SQ WEEKLY Qty: 2 5RF fluticasone propion-salmeterol [Advair Diskus] 250-50 mcg/dose blister with device 1 inh IH BID Qty: 3 2RF rosuvastatin 20 mg tablet See Rx Instructions .ROUTE .COMPLEX Qty: 90 3RF Dose Instruction: TAKE 1 TABLET EVERY DAY Rx Instructions: TAKE 1 TABLET EVERY DAY sodium chloride [Sterile Saline] 0.9 % solution 1 irrig irrigation BID PRN (Reason: wound care) Qty: 6000 2RF losartan-hydrochlorothiazide 100-25 mg tablet 1 tab PO DAILY Qty: 90 1RF gemfibrozil 600 mg tablet 600 mg PO BID Qty: 180 3RF Rx Instructions: Take 1 TAB BID FOR HYPERLIPIDEMIA prasugrel HCl [Effient] 10 mg tablet 10 mg PO DAILY Qty: 90 3RF carvedilol 25 mg tablet See Rx Instructions .ROUTE .COMPLEX Qty: 180 3RF Dose Instruction: TAKE 1 TABLET TWICE DAILY WITH MEALS Rx Instructions: TAKE 1 TABLET TWICE DAILY WITH MEALS alcohol swabs [Alcohol Prep Pads] Pads, Medicated 100 pad topical .TID and prn Qty: 100 5RF bupropion HCl 150 mg tablet extended release 24 hr See Rx Instructions .ROUTE .COMPLEX Qty: 90 3RF Dose Instruction: TAKE 1 TABLET EVERY DAY Rx Instructions: TAKE 1 TABLET EVERY DAY (DME) Blood Glucose Test Strip See Rx Instructions .ROUTE .MEDSUPPLY Qty: 50 11RF Rx Instructions: As directed potassium chloride 10 mEq tablet extended release 10 meq PO DAILY Qty: 90 1RF amlodipine 5 mg tablet See Rx Instructions .ROUTE .COMPLEX Qty: 90 3RF Dose Instruction: TAKE 1 TABLET EVERY DAY Rx Instructions: TAKE 1 TABLET EVERY DAY gabapentin 300 mg capsule 300 mg PO TID Qty: 90 3RF metformin 850 mg tablet See Rx Instructions .ROUTE .COMPLEX Qty: 90 0RF Dose Instruction: TAKE 1 TABLET EVERY DAY FOR DIABETES Rx Instructions: TAKE 1 TABLET EVERY DAY FOR DIABETES aspirin 81 mg Tablet,Chewable 81 mg PO DAILY 30 Days Qty: 30 6RF ergocalciferol (vitamin D2) 1,250 mcg (50,000 unit) capsule 50,000 unit PO QWEEK Referrals Follow up/Referrals: Jaylon Lopez MD [Primary Care Provider, Family Practice] - See instructions Activity Restrictions/Add. Instructions Additional Instructions/Restrictions: You were evaluated on an emergency basis. It is very important that you follow- up with your primary care provider and any specialist who we discussed within the next 2 days in order to better assess your health more comprehensively. For example, incidental findings on imaging or laboratory results that were performed today may be discovered, which do not require immediate medical care, but may impact your health in the future. If your symptoms worsen or persist, please return to the emergency department immediately for reassessment. Take all medications as prescribed. In queue for allowing me to participate in your health care, and I hope you feel better soon. Clinical Impressions Clinical Impression: Wound drainage Instructions Patient Instructions: Skin Wound Print Language Print Language: Irish Discharge ED Provider: Vaishali Dill Adult HPI General Chief complaint: Urogenital-Male Stated complaint: Bleeding sent per [facility] Jaylon Gonzalez Time Seen by Provider: 11/20/24 16:49 Mode of Arrival: Ambulatory Source of Information: Patient Description of Symptoms (Recalled from ER Triage Doc. by RN): patient presents from PCP office for bleeding in between my legs . patient stated he had gangrene of the groin back in march which has since been taken care of. he presented to his PCP for this and due to concerns was sent to the ER for further evaluation. History of Present Illness HPI narrative: 69-year-old male presents emergency department with complaints of bleeding from his right groin area. He reports that he was diagnosed with gangrene in this area in March. He was seen at [facility] where he had wound debridement and was followed by wound management until September of this year. He states that he has recently been traveling to [place] and sitting a lot in his car. States that he has noticed he has had some bloody discharge on his underwear and felt some tenderness in his right groin. He followed up with his primary care provider when he got back from his trip today and they sent him to ER for evaluation due to his history of gangrene in this area. He denies fevers, nausea, vomiting, diarrhea. He reports that he has a mild discomfort to the area. Related Data Home Medications ?Medication ?Instructions ?Recorded ?Confirmed ergocalciferol (vitamin D2) 1,250 50,000 unit PO QWEEK Supplement 04/05/22 11/20/24 mcg (50,000 unit) capsule coQ10 (ubiquinol) 100 mg capsule 100 mg PO BID 4 11/20/24 (Qunol Serg CoQ10) blood-glucose meter (OneTouch #1 ea 05/13/24 11/20/24 Verio Flex Meter) pen needle, diabetic 31 gauge x #1,200 ea 05/13/2404/20 (Easy Touch) insulin glargine 100 unit/mL (3 See Rx Instructions SQ DAILY 09/23/24 11/20/24 mL) subcutaneous pen (Lantus Solostar U-100 Insulin) insulin lispro 100 unit/mL 18 unit SQ USEASDIRECTD 11/20/24 subcutaneous pen (Humalog KwikPen (U-100) Insulin) Previous Rx's ?Medication ?Instructions ?Recorded aspirin 81 mg chewable tablet 81 mg PO DAILY 30 days # 30 tabs 05/03/23 cyclobenzaprine 10 mg tablet 10 mg PO TID PRN muscle s pasm #30 05/16/23 tabs lancets 30 gauge (Droplet Lancets) #100 ea 06/04/23 fluconazole 150 mg tablet 150 mg PO QWEEK #3 tabs 02/28 nystatin 100,000 unit/mL oral 4 ml PO QID 10 days #160 mL 11/06/23 suspension dulaglutide 0.75 mg/0.5 mL 0.75 mg (0.5 mL) SQ WEEKLY 12/25/23 subcutaneous pen injector Diabetes #2 mL (Trulicity) fluticasone 250 mcg-salmeterol 50 1 inh inhalation BID COPD #3 ea 03/04/24 mcg/dose blistr powdr for inhalation (Advair Diskus) rosuvastatin 20 mg tablet See Rx Instructions .Route 0 03/24/24 .COMPLEX #90 tabs sodium chloride 0.9 % irrigation 1 irrig irrigation BI D PRN wound 04/25/24 solution (Sterile Saline) care #6,000 mL losartan 100 1 tab PO DAILY #90 tabs 05/07 05/30 mg-hydrochlorothiazide 25 mg tablet gemfibrozil 600 mg tablet 600 mg PO BID #180 tabs 05/07 10/30 prasugrel HCl 10 mg tablet 10 mg PO DAILY #90 tabs (Effient) carvedilol 25 mg tablet See Rx Instructions .Route 0 06/19/24 .COMPLEX #180 tabs alcohol swabs (Alcohol Prep Pads) 100 pad topical .TID and prn Use 06/20/24 to check blood sugar tid and prn #100 ea bupropion HCl 150 mg 24 hr tablet, See Rx Instructions .Route 07/28/24 extended release .COMPLEX #90 tabs blood sugar diagnostic (Blood #50 ea 07/30/24 Glucose Test strips) amlodipine 5 mg tablet See Rx Instructions .Route 0 08/21/24 .COMPLEX #90 tabs potassium chloride 10 mEq 10 meq PO DAILY #90 tabs tablet,extended release doxycycline hyclate 100 mg capsule 100 mg PO BID #20 c aps 09/22/24 gabapentin 300 mg capsule 300 mg PO TID #90 caps 10/07 metformin 850 mg tablet See Rx Instructions .Route 0 10/21/24 .COMPLEX #90 tabs Allergies Allergy/AdvReac Type Severity Reaction Status Date / Time No Known Allergies Allergy Verified 11/20/24 14:59 [facility] Disclaimer: The information contained in this section may have been updated after the patient was seen, as this information can be updated by other users. Medical History (Updated 11/20/24 @ 19:07 by Trudi He) Hx of gangrene Cellulitis of right groin Abscess of right groin Tick bite of back Tick bite of upper arm Gangrene Sacroiliac joint pain COPD with exacerbation Encounter for immunization Hypertension HLD (hyperlipidemia) Abnormal electrocardiogram [ECG] [EKG] Coronary artery calcification seen on CAT scan Fatigue Chest pain Hx of sleep apnea History of COPD Type 2 diabetes mellitus Bilateral bunions Surgical History Status post bunionectomy History of bilateral knee replacement H/O arthroscopy of right knee Family History Other No significant family history Social History Smoking Status: Current every day smoker tobacco type: cigarettes packs per day: 1 alcohol intake: never substance use type: denies use current occupational status: employed Travel in the last 8 weeks?: None Have you lived/traveled outside US in past 30 days?: No Contact w/someone who lives/traveled outside US past 30 days?: No Exposure to someone with infectious disease in past 14 days?: No Do you have a fever (greater than 100.4 F or 38 C)?: No Have you tested positive for COVID-19?: No Exposed to someone with COVID-19 in past 14 days?: No Do you have a sore throat?: No Do you have a cough?: No Do you have any weakness?: No Do you have any diarrhea?: No Are you experiencing any unusual bleeding?: Yes Do you have any muscle aches/pain?: No Do you have any abdominal pain?: No Are you experiencing loss of taste or smell?: No Other Medical History Have you received the Flu Vaccine for this season: No Have you received the Pneumonia Vaccine: Yes ROS Obtained: Yes other Integumentary/Breasts Skin/Breast: Reports wounds Physical Exam Narrative Physical exam: General: Awake, aware, in no acute distress HEENT: Normocephalic, no evidence of trauma CV: RRR, no murmurs, rubs, or gallops Pulm: CTA bilaterally with no rhonchi, rales, wheezes ABD: Nontender, no swelling, guarding, or rebound tenderness Psych, appropriate mood and affect Genitourinary: Patient has extensive scar tissue in his right groin that radiates to his right labial cleft area. Patient has an approximate 2 cm linear skin tear on his perineum. He also has a very small opening in his right groin within the scar tissue. This appears to be a possible wound tract that has a small amount of bloody drainage coming from the site. Patient reports mild tenderness on palpation of the area. General General appearance: alert Respiratory Respiratory exam: Present normal lung sounds bilaterally Cardiovascular Cardiovascular exam: Present regular rate Neurological Exam Neurological exam: Present alert Medical Decision Making Medical Records Screening: Per USPSTF and CDC recommendations, given the prevalence of disease in our region, it is our hospital?s policy to screen for HIV and viral Hepatitis for all patients aged 18 and over and those with ongoing risk factors. Andre Inquiry Pt receiving controlled substance: No Vital Signs: 11/20/24 16:40 11/20/24 17:00 11/20/24 17:15 Temperature 98.2 F Temperature Source Oral Pulse Rate 58 L 60 Pulse Rate [Right Radial] 65 Respiratory Rate 18 Blood Pressure 136/67 Blood Pressure [Right Arm] 151/67 H Blood Pressure Mean Blood Pressure Mean [Right Arm] 95 Blood Pressure Source [Right Arm] Automatic Cuff Blood Pressure Position [Right Arm] Sitting 02 Sat by Pulse Oximetry 97 95 95 Oxygen Delivery Method Room Air 11/20/24 17:30 11/20/24 18:00 11/20/24 18:30 Temperature Temperature Source Pulse Rate 61 62 65 Pulse Rate [Right Radial] Respiratory Rate 16 16 15 Blood Pressure 128/65 142/71 H 137/74 Blood Pressure [Right Arm] Blood Pressure Mean 100 94 95 Blood Pressure Mean [Right Arm] Blood Pressure Source [Right Arm] Blood Pressure Position [Right Arm] 02 Sat by Pulse Oximetry 98 96 97 Oxygen Delivery Method Lab Data Lab Results 11/20/24 17:04: WBC 8.3, RBC 4.80, Hgb 14.6, Hct 42.8, MCV 89.2, MCH 30.4, MCHC 34.1, RDW 13.5, Plt Count 215, MPV 11.1 H, Neut % (Auto) 51.1, Lymph % (Auto) 34.2, Callahan % (Auto) 9.1, Eos % (Auto) 4.1, Baso % (Auto) 1.3, Neut # (Auto) 4.2, Lymph # (Auto) 2.8, Callahan # (Auto) 0.8, Eos # (Auto) 0.3, Baso # (Auto) 0.1, Sodium 137, Potassium 4.0, Chloride 102, Carbon Dioxide 24, Anion Gap 15.0, BUN 20, Creatinine 0.80, Estimated Creat Clear 90, Estimated GFR 96, Est GFR ( Amer) 116, Glucose 134 H, Calcium 9.5, Magnesium 1.7, Total Bilirubin 0.7, AST 24, ALT 24, Alkaline Phosphatase 58, Total Protein 7.0, Albumin 4.5, Globulin 2.5, Albumin/Globulin Ratio 1.8 11/20/24 18:13: Urine Color Yellow, Urine Appearance Clear, Urine pH 6.0, Ur Specific [place] <= 1.005, Urine Protein Negative, Urine Glucose (UA) Negative, Urine Ketones Negative, Urine Blood Negative, Urine Nitrate Negative, Urine Bilirubin Negative, Urine Urobilinogen 0.2, Ur Leukocyte Esterase Negative, Urine RBC None, Urine WBC None, Ur Squamous Epith Cells None, Urine Bacteria None 11/20/24 17:04 11/20/24 17:04 Orders (Tests/Meds): ED MEDICATIONS Discontinued Medications Generic Name Dose Route Start Last Admin Trade Name Freq PRN Reason Stop Dose Admin Iopamidol 75 ml 11/20/24 17:42 11/20/24 17:43 Iopamidol-370 (76%);100ml Bottle IV 11/20/24 17:43 75 ml ONCE ONE Administration Sodium Chloride 10 ml 11/20/24 17:42 11/20/24 17:43 Sodium Chloride 0.9% 10ml Syr (Rad Only) IV 11/20/24 17:43 10 ml ONCE ONE Administration ORDERS Category Date Time Status CT abdomen pelvis w con Stat Cat Scan 11/20/24 16:56 Completed CBC w/Auto Diff [Complete Blood Count Auto Diff] Stat Lab 11/20/24 17:04 Completed CMP [Comprehensive Metabolic Panel] Stat Lab 11/20/24 17:04 Completed Magnesium Stat Lab 11/20/24 17:04 Completed Urinalysis and Microscopic Stat Lab 11/20/24 18:13 Completed Medical Decision Narrative: Initial impression of presenting illness: 69-year-old male presents to the emergency department with complaints of bloody drainage from his right groin area. He reports that he was diagnosed with gangrene and seen at [facility] earlier this year where wound debridement was done. He states that he was followed by wound management until September when he was finally cleared. He states he has not had any complications since that time until this past couple of days. He states that he has been driving a lot in his vehicle as they were on a road trip. He reported that he noticed bloody drainage in his underwear. He states when he got back home he is followed up with his primary care for evaluation of the area but they recommended that he come to ER for evaluation due to his history of gangrene in this area. He denies fevers, nausea, vomiting, diarrhea. He reports there is mild discomfort in the area. Differential diagnosis includes but is not limited to: Cellulitis, abscess, gangrene, fistula, unhealed wound tract Patient arrives hemodynamically stable, afebrile, without respiratory distress with vital signs interpreted by myself. Initial physical exam reveals extensive scarring to patient's right groin that wraps around to his right gluteal cleft area. He has an approximate 2 cm linear skin tear on his perineum. No erythema noted around this area but patient does report tenderness on palpation. Patient also has a very small circular opening in his right groin that looks like a unhealed wound track. Patient has a small amount of bloody discharge coming from this area. Patient also reports tenderness on palpation of this area. Abdomen is soft nontender with normal active bowel sounds. Rest of exam is unremarkable Initial diagnostic plan: Laboratory studies including urinalysis, CT of abdomen pelvis with IV contrast. Patient declines pain medication at this time. Results from initial plan were reviewed and interpreted by myself, pertinent positives include: Laboratory studies including CT of abdomen pelvis with IV contrast were unremarkable. Patient was made aware of the results and the findings, upon reevaluation patient has remained stable throughout stay, symptoms remain stable. Upon reevaluation patient is resting comfortably in his bed with no signs of acute distress. He reports that his pain is still under control. Disposition: Reviewed findings today's workup with patient informed no acute abnormalities were noted. Recommended that he wear loosefitting clothing to avoid further irritation to the area. Also recommended that he contact [facility] wound management for outpatient follow-up. Directed him to the return to the emergency department with any new or worsening symptoms including worsening pain, swelling, drainage or erythema to the area. Patient is agreeable to plan of care. Patient made aware of findings and had a detailed discussion with symptomatic care and return precautions, patient voiced understanding. Critical Care Critical Care Time Critical Care Time: No
--- OUTSIDE RECORDS SUMMARY | 2024-11-20 16:51 | XMS_ITS | Encounter Summary ---
Author Organization Healthcare Address [address] [place] [address] Care Team Providers Care Claim Trainee Name Role Phone Juan Gabriel MD Primary Care Provider [phone] Encounter Details Date Type Department Care Team (Latest Contact Info) Description 10/14/2024 Travel Social History Tobacco Use Types Packs/Day [...] any time in the past 12 m [facility], were you homeless or living in a prison (including now)? No 03/26/2024 AUDIT-C Answer Date [...] as of this encounter Plan of Treatment Not on file documented as of this encounter Visit Diagnoses Not on filedocumented in this encounter Additional Health Concerns Assessment Noted Time A fall risk assessment has been complete d for the patient 10/14/2024 12:50 PM EDT A Body Mass Index follow-up plan has been documented for the patient 10/14/2024 1:37 PM EDT documented as of this encounter Care Teams Claim Trainee Relationship Specialty Start Date End Date Juan Gabriel MD [address] [place] [address] PCP - General 03/24/24 documented as of this encounter
--- OUTSIDE RECORDS SUMMARY | 2024-11-20 16:51 | XMS_ITS | Clinical Summary ---
Author Organization [facility] Address [address] [place] [address] Care Team Providers Care Prop Maker Name Role Phone Juan Gabriel MD Primary Care Provider [phone] Allergies No known active allergies Medications fluticasone-salme [...] Encounters Date Type Department Care Team Description 10/14/2024 1:00 PM EDT Office Visit [facility] [address] [place] [address] Sole Watson APRN Non-healing surgical wound, subsequent encounter (Primary Dx); Necrotizing soft tissue infection; Type 2 diabetes mellitus with other skin complication, unspecified whether terminal operations manager insulin use (CMS/HCC); Class 2 obesity with body mass index (BMI) of 35.0 to 35.9 in adult, unspecified obesity type, unspecified whether serious comorbidity present 10/14/2024 Travel 09/03/2024 1:00 PM EDT Office Visit [facility] [place] [id number] [place] [address] Sole Watson, MAUREEN Non-healing surgical wound, subsequent encounter (Primary Dx); Necrotizing soft tissue infection; Type 2 diabetes mellitus with other skin complication, unspecified whether terminal operations manager insulin use (CMS/HCC); Class 2 obesity with body mass index (BMI) of 35.0 to 35.9 in adult, unspecified obesity type, unspecified whether serious comorbidity present 09/03/2024 Travel from Last 3 Months Family History [...] any time in the past 12 m [facility], were you homeless or living in a longterm (including now)? No 03/26/2024 AUDIT-C Answer Date [...] the past 12 months has th e [place], gas, oil, or water company threatened to [...] F) 10/14/2024 12:46 PM EDT Respiratory Rate 16 04/15/2024 11:40 AM EDT Oxygen Saturation 97% 10/14/2024 12:46 PM EDT Inhaled Oxygen Concentration - - Weight 92.2 kg (203 lb 4.2 oz) 10/14/2024 12:46 PM EDT Height 165.1 cm (5' 5 ) 10/14/2024 12:46 PM EDT Body Mass Index 33.82 10/14/2024 12:46 PM EDT Plan of Treatment Health Maintenance Due Date Last Done Comments [facility]-Depression Screening 1955 [facility]-Medicare Annual Wellness (AWV) 1955 [facility]-Infant/Child/Adol SDOH Screenings 1955 Diabetes: Dental Exam 1964 CT Colonography 07/10/1999 Colonoscopy 07/10/1999 FIT-DNA 07/10/1999 FIT 07/10/1999 FOBT 07/10/1999 Sigmoidoscopy 07/10/1999 [facility]-Colorectal Cancer Screening 07/10/1999 [facility]-RSV Vaccine: 60+ Years or (1 - Risk 60-74 years 1-dose series) 2014 [facility]-Abdominal Aortic Aneurysm (AAA) Screening 07/10/2019 [facility]-Zoster Vaccines (2 of 3) 09/11/2022 07/17/2022 [facility]-Diabetes: Hemoglobin A1C 06/23/2024 03/24/2024 [facility]- SDOH Screenings 09/23/2024 [facility]-Adult SDOH Screenings 09/23/2024 03/26/2024 [facility]-Pneumococcal Vaccine: 50+ Years (3 of 3 - PCV20 or PCV21) 09/29/2024 09/30/2019, 11/29/2018 [id number] Vaccine ( season) 2024 10/24/2023, 12/07/2021, 06/27/2021, Additional history exists [facility]-Influenza Vaccine (#1) 10/06/202411/11, 11/12/2020, 11/06/2019, Additional history exists [facility]-DTaP,Tdap,and Td Vaccines (3 - Td or Tdap) 02/14/2029 02/14/2019, 04/06/2017 [facility]-Hepatitis C Screening Completed 03/24/2024 [facility]-Obesity Intervention Completed 025, 09/03/2024, 07/30/2024, Additional history exists HPV Vaccines Aged Out [...] Procedure Name Priority Date/Time Associated Diagnosis Comments HEPATITIS C ANTIBODY - ED W/REFLEX TO HCV QUANT PCR STAT 03/24/2024 4:29 PM EST HEMOGLOBIN A1C STAT 03/24/2024 4:29 PM EST from Last 3 Months or Most Recently Relevant to Health Maintenance Results * Hepatitis C Antibody - ED (03/24/2024 4:29 PM EST) Hepatitis C Antibody Negative Negative 03/24/2024 5:39 PM EST [facility] Blood Venous blood specimen / Unknown Venipuncture / Unknown 03/24/2024 4:29 PM EST 03/24/2024 4:56 PM EST us Eitan Degroot MD LAB BLOOD ORDERABLES Final Result [facility] [address] [place] [address] * (ABNORMAL) Hemoglobin A1c (03/24/2024 4:29 PM EST) Hemoglobin A1c 8.7(H) <5.7 % 03/24/2024 5:42 PM EST [facility] Blood Venous blood specimen / Unknown Venipuncture / Unknown 03/24/2024 4:29 PM EST 03/24/2024 4:51 PM EST Narrative [facility] - 03/24/2024 5:42 PM EST HA1C Interpretive Data: Diagnosis of Diabetes: Diabetic > or = 6.5% Pre-diabetic 5.7 to 6.4% Non-diabetic < or = 5.6% Glycemic Targets for Type I and Type II Diabetics: Non- Adults <7.0% Adults <6.0% Children and Adolescents <7.5% Source: [place] [employer]. Standards of medical care in diabetes,2017. Diabetes Care.2017:40 (suppl 1):S1-S135. HbA1c assay performed by an ion-exchange chromatography method that is certified traceable to the DCCT. Eitan Degroot MD LAB BLOOD ORDERABLES Final Result [facility] [address] [place] [address] from Last 3 Months or Most Recently Relevant to Health Maintenance Insurance MEDICARE Advance Directives * Full Code (Latest Code Status on File) Date Activated Date Inactivated Comments 03/24/2024 8:36 PM 04/03/2024 9:37 PM Question Answer Comments Patient has decision-making capacity? Yes Care Teams Prop Maker Relationship Specialty Start Date End Date Juan Gabriel MD [facility] [place] [address] PCP - General 03/24/24
--- OUTSIDE RECORDS SUMMARY | 2024-11-20 16:51 | XMS_ITS | Clinical Summary ---
Author Organization [facility] [place] [address] Care Team Providers Care Bedspread Seamer Name Role Phone Unavailable Primary Care Provider [...] Zoster (1 of 2) 2004 COVID-19 Vaccine ( - 2023-2 5 season) 2024 Influenza Vaccine (#1) 2024 Hepatitis B Vaccine Aged Out No longe r eligible based on patient's age to complete this topic Meningococcal B Vaccine Aged Out No l onger eligible based on patient's age to complete this topic
--- NOTE | 2024-11-20 16:56 | CT_ITS ---
PROCEDURE INFORMATION: Exam: CT Abdomen And Pelvis With Contrast Exam date and time: 11/20/2024 5:44 PM Age: 69 years old Clinical indication: Other: Right groin pain TECHNIQUE: Imaging protocol: Computed tomography of the abdomen and pelvis with contrast. Radiation optimization: All CT scans at this facility use at least one of these dose optimization techniques: automated exposure control; mA and/or kV adjustment per patient size (includes targeted exams where dose is matched to clinical indication); or iterative reconstruction. Contrast material: ISOVUE; Contrast volume: 75 ml; Contrast route: IV; COMPARISON: CT ABDOMEN PELVIS W CON 03/24/2024 1:34 PM FINDINGS: Lungs: Lung bases are unremarkable. Heart: Heart size is normal. No pericardial effusion. Moderate dense coronary artery calcifications are present. Diaphragm: No hiatal hernia. Liver: Hepatomegaly. Diffuse decreased density throughout the liver in keeping with hepatic steatosis. No suspicious mass or lesion within the liver. Liver surface is smooth. Gallbladder and biliary ducts: The gallbladder is unremarkable. No biliary ductal dilatation. The common bile duct is normal in caliber. Pancreas: The pancreas is unremarkable. Spleen: Numerous punctate calcifications are present within the spleen in keeping with prior granulomatous disease. Spleen otherwise appears unremarkable. Adrenal glands: The adrenal glands are unremarkable. Kidneys and ureters: 1.4 cm exophytic cyst within the anterior upper pole of the right kidney. Symmetric appearance of the right and left renal nephrogram. No hydronephrosis. No solid suspicious renal mass. No renal calculi. Ureters appear normal. Stomach and bowel: Stomach appears unremarkable. Small bowel loops are normal in caliber. No evidence of a small bowel obstruction. There are scattered diverticula along the sigmoid colon. No evidence for acute diverticulitis. Additional scattered diverticula are present throughout the colon. Moderate stool burden. Appendix: Normal appendix. Intraperitoneal space: No significant peritoneal free fluid. No free peritoneal air. Vasculature: No infrarenal abdominal aortic aneurysm. Scattered heterogeneous and calcified plaque along the length of the infrarenal abdominal aorta and along the iliac arteries. Major branch vessels are patent. Lymph nodes: There are no enlarged or suspicious intra-abdominal, pelvic or retroperitoneal lymph nodes. Urinary bladder: The bladder is distended. No bladder wall thickening or nodularity. No bladder calculi. Reproductive: Prostate is mildly enlarged. Bones/joints: Mild osteoarthritic changes are present at the right and left hip joint. Multilevel degenerative changes are present throughout the spine. Multilevel bridging osteophyte formation. No fracture or suspicious bone lesion. Advanced degenerative facet arthropathy is present at the L4-L5 and L5-S1 level. [id number] spinal canal stenosis at L2-L3. Mild spinal canal stenosis at L3-L4. [id number] spinal canal stenosis at L4-L5. Soft tissues: No focal inflammatory process or free fluid within the right inguinal region. No inguinal hernia. No ventral hernia. IMPRESSION: 1. No acute findings within the abdomen or pelvis. No focal inflammatory process or free fluid. No evidence of a bowel obstruction. No evidence for acute colitis or acute diverticulitis. The appendix appears normal. 2. Sigmoid diverticulosis. 3. The bladder is distended. No bladder wall nodularity or bladder calculus. 4. No focal inflammatory process or free fluid within the region of the right groin. No inguinal hernia. 5. Hepatomegaly. Diffuse decreased density throughout the liver in keeping with hepatic steatosis. COMMENTS: Consistent with the [employer]'s Incidental Findings Committee white paper (J Am Aminah Radiol 2018): Any incidental renal lesion less than 1 cm or classified as too small to characterize, or any incidental cystic renal lesion characterized as simple-appearing, is likely benign. No follow-up imaging is recommended for these lesions per consensus recommendations based on imaging criteria.
[2024-11-20 17:17] LABS: Hematocrit 42.8 % (42.0-52.0); Hemoglobin 14.6 g/dL (14.1-18.0); Immature Granulocytes % 0.2 %; Mean Corpuscular HGB Conc 34.1 g/dL (31.8-35.4); Mean Corpuscular Hemoglobin 30.4 pg (27.0-31.2); Mean Corpuscular Volume 89.2 fl (80-94); Nucleated Red Blood Cells % 0 %; Platelet Count 215 K/mm3 (142-424); Red Blood Count 4.80 M/mm3 (4.60-6.20); Red Cell Distribution Width-SD 44.6 fL; White Blood Count 8.3 K/mm3 (4.8-10.8)
[2024-11-20 17:30] LABS: Alanine Aminotransferase 24 U/L (12-78); Albumin Level 4.5 g/dl (3.5-5.0); Albumin/Globulin Ratio 1.8 (1.1-1.8); Aspartate Amino Transferase 24 U/L (17-59); Blood Urea Nitrogen 20 mg/dl (9-20); Calcium 9.5 mg/dl (8.4-10.2); Carbon Dioxide 24 mmol/L (22.0-30.0); Chloride 102 mmol/L (98-107); Creatinine Clearance Estimated 90 mL/min (50-200); Creatinine,Serum 0.80 mg/dl (0.66-1.25); Estimated Glomerular Filt Rate 96 ml/min (>60); GFR (African American) 116 ML/MIN (>60); Globulin 2.5 g/dL (1.3-3.2); Glucose 134 mg/dl (74-100); Magnesium 1.7 mg/dl (1.6-2.3); Sodium 137 mmol/L (136-145); Total Protein,Serum 7.0 g/dl (6.3-8.2)
[2024-11-20 17:40] LABS: Alkaline Phosphatase 58 U/L (38-126); Anion Gap 15.0 mEq/L (5-15); Bilirubin,Total 0.7 mg/dl (0.2-1.3); Potassium 4.0 mmoL/L (3.5-5.1)
[2024-11-20] MEDS: SODIUM CHLORIDE 0.9% 10ML SYR (RAD ONLY) 10 ML IV (17:43)
[2024-11-20] MEDS: IOPAMIDOL-370 (76%);100ML BOTTLE 75 ML IV (17:43)
[2024-11-20 18:18] LABS: Microscopic, Urine URINE MICROSCOPIC (MICROSCOPIC)
[2024-11-20 18:19] LABS: Bilirubin,Urine Negative (Negative); Color,Urine YELLOW (Yellow); Glucose,Urine (UA) Negative (Negative); Ketones,Urine Negative (Negative); Leukocyte Esterase,Urine Negative (Negative); PH,Urine 6.0 (5.0-8.5); Protein,Urine Negative (Negative); Specific Gravity, Urine <= 1.005 (1.005-1.030); Urobilinogen,Urine 0.2 EU/dl (0.2)
== END 2024-11-20 19:24 | disposition home or self-care (01) ==
PROVIDERS: Nurse Practitioner Family; Emergency Provider Student in an Organized Health Care Education/Training Program; PCP Family Medicine
DX: L02.214 Cutaneous abscess of groin (principal); L03.314 Cellulitis of groin; B96.89 Other specified bacterial agents as the cause of diseases classified elsewhere; F17.210 Nicotine dependence, cigarettes, uncomplicated; Z87.2 Personal history of diseases of the skin and subcutaneous tissue
CPT/HCPCS: 74177; 80053; 81001; 83735; 85025; 87070; 87077; 87205; 99284; Q9967